=== PATIENT | female | born 1965 | race Caucasian/White ===

== ENCOUNTER 2018-01-21 11:54 | Day surgery (SDC) | payer OTHER, SELFPAY ==
--- NOTE | 2018-01-18 11:03 | EKG12_ITS ---
Test Reason : PRE OP Blood Pressure : / mmHG Vent. Rate : 090 BPM Atrial Rate : 090 BPM P-R Int : 124 ms QRS Dur : 072 ms QT Int : 348 ms P-R-T Axes : 019 047 051 degrees QTc Int : 425 ms Normal sinus rhythm Normal ECG Confirmed by ANTHONY CAN, SENTHIL ([id number]), technical writer and editor SHERRY BECK ([id number]) on 01/21/2018 1:01:42 PM Referred By: Nicole Vega Confirmed By:SENTHIL CRUZ MD
[2018-01-21] VITALS (14 sets, daily range): BP systolic 95–142; BP diastolic 48–109; PULSE 58–112; RESP 16–20; TEMP 36.4–36.9; O2SAT 91–100; BMI 27.4; BMI 28.6
--- NOTE | 2018-01-21 06:40 | HP.PCM_ITS ---
- Problem List (1) Cystocele Status: Acute (2) Rectocele Status: Acute (3) Uterine prolapse Status: Acute History and Physical Date of Admission: 01/21/18 Intake Vital Signs 01/11/18 Height 5 ft 3 in 01/11/18 Weight: 155 lb 6 oz 01/11/18 Body Mass Index (BMI) 27.5 01/11/18 Blood Pressure 122/77 Intake Visit Reasons: Pre Op appointment Fitting Room Attendant Required: No Is patient in pain?: No Allergies No Known Allergies Allergy (Verified 01/11/18 11:53) Medications atorvastatin 20 mg tablet 20 mg PO QDAY 01/11/18 [History Confirmed 01/11/18] fluoxetine 40 mg capsule 40 mg PO QDAY 01/11/18 [History Confirmed 01/11/18] gabapentin 300 mg capsule 300 mg PO BID cap 01/11/18 [History Confirmed ] levothyroxine 100 mcg capsule PO 01/11/18 [History Confirmed 01/11/18] levothyroxine 75 mcg tablet PO 01/11/18 [History Confirmed 01/11/18] oxybutynin chloride ER 5 mg tablet,extended release 24 hr 5 mg PO QDAY 01/11/18 [History Confirmed 01/11/18] Is last menstrual period known: No Post menopausal: Yes Patient : No : No PFSH Medical History GERD (gastroesophageal reflux disease) (Acute) Sinus headache (Acute) Hyperlipidemia (Chronic) Hypothyroidism (Chronic) Neuropathy (Chronic) Family History Mother Hypertension Heart disease Father CVA (cerebral vascular accident) Social History Smoking Status: Never smoker alcohol intake: never substance use type: does not use caffeine: No what type of physical activity do you participate in: walking frequency: 1-2 times per week seatbelt use: always do you feel safe at home: Yes additional social history: - [employer] 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 HPI Pre Op appointment: Details: DONNY LAWTON is a 52 year old who presents for PREOP APPOINTMENT. She was seen by Dr Nicole Vega and is planning a hysterectomy. Her urge incontinence symptoms are controlled with meds and is having pelvic support surgery also done at the same time. Female Reproductive History Questions: Metorrhagia: No, Sexually active: Yes, Dyspareunia: No Pregancy History 3 Elective abortions Hx Para 3 Spontaneous abortions Hx # Term Pregnancies Ectopic pregnancies Hx # Pregnancies Multiple births # of living children Past Pregnancies Del. Date Name GA/Weeks Outcome Route Bth Weight [facility] F[facility] Unknown Sue-1995 Unknown Clinton Farley-1997 Unknown Ricardo-1999 ROS Const Constitutional: Denies poor appetite, headache(s), fever(s), increased appetite , weight gain, weight loss or fatigue Cardio Card: Denies chest pain Resp Resp: Denies dyspnea or cough GI GI: Reports as per HPI; denies vomiting, nausea, abdominal pain or constipation : Denies nipple discharge Skin Skin/Breast: Denies breast lump, breast pain, breast skin changes, nipple discharge or change in hair all other systems reviewed and negative Exam Const General: cooperative, healthy appearing, comfortable, no acute distress, well developed Nutritional Appearance: average body habitus Orientation: alert HENMT Head: normal to inspection, normocephalic Neck Neck: normal visual inspection, trachea midline Thyroid: thyroid normal Resp RRR Effort & Inspection: normal respiratory effort GI Inspection: normal to inspection, non-distended Palpation: soft, no hepatosplenomegaly Skin General: no rashes or lesions noted Assessment & Plan Problems 1. Cystocele and rectocele with incomplete uterovaginal prolapse N81.2 Plan discussed surgical risks including risks of anesthesia, infection, bleeding, injury to bowel, bladder or blood vessels, and patient wishes to proceed with surgery. Coding Level of Care Code No Charge Diagnoses Cystocele and rectocele with incomplete uterovaginal prolapse N81.2 I have seen the patient and update the h and p with any relevant changes. Sharlene Hill 01/21/18
[2018-01-21] MEDS: Phenazopyridine 95 MG Tablet 190 MG PO (13:58)
--- NOTE | 2018-01-21 14:05 | HYST_PTH ---
PATIENT: DONNY LAWTON [place] [facility] [id number] AGE/SX: 52/F ROOM: RE01/21/[address]: Dr. Nicole Vega MD : [id number] BED: DIS: 01/23/2018 SPEC #: [id number] RECD: 01/24/18 09:06 STATUS: NILS CARI #: [id number] LEAH: 01/21/18 14:[address]: Sharlene Hill DEPT: SURGICAL PATHOLOGY RECD BY: Johnny Barrett ENTERED: 01/24/18 09:06 SP TYPE: HYSTERECT OTHR DR: MD Dr. Nicole Whitfield MD Dr. Sharon Marcanthony, MD Tissues: Uterus, NOS Procedures: Surgery Specimen Level V Comments: @ Ordering doctor for SUV edited from to @ by JR at 01/24/18 09 @ Submitting doctor edited from to @ by JR at 01/24/18 0958 HEADER OPERATION: Hysterectomy, vaginal, salpingectomy PRE-OP DIAGNOSIS: Cystocele rectocele with incomplete uterovaginal prolapse TISSUE SUBMITTED: Cervix, uterus, bilateral tubes MICROSCOPIC DIAGNOSIS Uterus, hysterectomy: Cervix ? nabothian cysts and mild chronic inflammation. Endometrium ? weakly proliferative endometrium with cystic change and focal tubal metaplasia. Myometrium ? adenomyosis. Right and left fallopian tubes ? no significant pathologic change. AM:antonietta 01/25/18 MICROSCOPIC DESCRIPTION Slides are reviewed. GROSS DESCRIPTION Received in fixative is one container labeled with the patient's name and designated cervix, uterus, bilateral tubes. The specimen consists of a hysterectomy specimen consisting of uterus with cervix and detached bilateral fallopian tubes. The uterus with cervix weighs 40 gm and measures 8 x 5 x 3.5 cm. The serosal surface is kaye, glistening. The ectocervical mucosa is unremarkable. The external os is slit-like in contour. The endocervical canal measures 3 cm in length and the endocervical mucosa is unremarkable. The triangular endometrial cavity measures 3.5 cm in length and 1.5 cm in width. The endometrium is congested without any mass lesion and measures <0.1 cm in thickness. Sections of the uterine wall do no reveal mass lesion and it measures 1.5 cm in thickness. The fallopian tubes are not identified as right or left. One of the fallopian tubes measures 5 cm in length and 0.5 cm in diameter. The fimbrial end is not identified. The second fallopian tube is also similar to first one and measures 5 cm in length and 0.5 cm in diameter. The fimbrial end is not identified. Sections reveal unremarkable cut surfaces. Environmental Health Aide sections are submitted in eight cassettes as follows: 1 - anterior cervix, 2 - posterior cervix, 3 & 4 - anterior uterine wall, 5 & 6 - posterior uterine wall, 7 & 8 ? each cassette containing one fallopian tubes. The fallopian tubes will be sectioned at the time of embedding. / TIMA:antonietta 01/24/18 TC:5 CPT: 03524
[2018-01-21] MEDS: Cefazolin 2 GM in 0.9% Normal Saline 100 ML IV (14:27)
[2018-01-21] MEDS: Vasopressin 20 UNITS/ML Vial (14:40)
[2018-01-21] MEDS: 0.9% NaCl Peripheral Flush Adult/Peds IV (15:24)
[2018-01-21] MEDS: Bupiv/Epi 0.5% Mpf 30 ML Vial (15:26)
[2018-01-21] MEDS: Dextrose 50%-Water 25 GM/50 ML DISP.SYRIN IV (15:27)
--- NOTE | 2018-01-21 16:23 | PCM.OPRPT ---
Problem List (1) Cystocele Status: Acute (2) Rectocele Status: Acute (3) Uterine prolapse Status: Acute Report of Operation Date of Procedure: 01/21/18 Pre-Operative Diagnosis: Uterovaginal prolapse Post-Operative Diagnosis: same Surgery/Procedure Performed:: Total vaginal hysterectomy and bilateral salpingectomy (George Wang); Anterior and posterior colporrhaphy, uterosacral ligament suspension and cystoscopy Description of Surgical Findings:: After Dr. George Wang completed the hysterectomy and bilateral salpingectomy, we intiated the USLS. With two Breisky Navratil retractors placed anteriorly and posteriorly in the vagina, the bowel was packed out of the cul-de-sac using a moist Kerlex sponge. A 0-Maxon with an HGU-46 needle on a long needle driver messenger was passed through the uterosacral ligament on the patients right side. This was followed by a 2-0 prolene suture using an SH needle. This was repeated on the contralateral side. The instruments and packing were removed from the vagina. Cystoscopy was then performed while holding tension on the uterosacral ligament suspensions sutures. Bilateral efflux of urine was seen from ureteral orifices. The vaginal epithelium overlying the anterior vaginal wall was grasped with two Allis clamps, injected with 0.25% Marcaine with epinephrine and a midline incision was made over the herniation of the anterior vaginal wall. The underlying pubocervical fascia was dissected off the overlying vaginal epithelium until the herniation of the pubocervical fascia was completely exposed. Hemostasis was achieved with electrosurgical cautery. The herniation was repaired in the traditional fashion using imbricating horizontal mattress sutures of 2-O PDS on a CT-1 needle. Once the hernation was completely repaired, the redundant vaginal epithelium was excised and the incision was closed with a running, locking 3-O vicryl suture. Excellent hemostasis was noted. The sutures were then bought through the corners of the vaginal cuff. The cuff was closed with interrupted 0-vicryl sutures. The uterosacral ligament sutures were then tied, elevating the vaginal vault. A self-retaining retractor was used to retract the labia and vagina for adequate visualization and exposure. The vaginal epithelium overlying the posterior vaginal wall was grasped with two Allis clamps, injected with 0.25% Marcaine with epinephrine and a midline incision was made over the herniation of the posterior vaginal wall. The underlying rectovaginal fascia was dissected off the overlying vaginal epithelium until the herniation of the rectovaginal fascia was completely exposed. Hemostasis was achieved with electrosurgical cautery. With placement of a rectal finger, the herniation was repaired in the traditional fashion using imbricating horizontal mattress sutures of 2-O PDS on a CT-1 needle. Once the hernation was completely repaired, the redundant vaginal epithelium was excised and the incision was closed with a running, locking 3-O vicryl suture. Excellent hemostasis was noted. The vagina was packed with Kerlex gauze soaked in estrogen cream. Anesthesia was discontinued. All needle, instrument, and sponge counts were correct x 2. The patient was taken to recovery room in stable condition draining clear urine from her viveros catheter. hourly shift: Sharlene Hill Type of Anesthesia:: General
--- NOTE | 2018-01-21 16:28 | OP.PCM_ITS ---
Problem List (1) Cystocele Status: Acute (2) Rectocele Status: Acute (3) Uterine prolapse Status: Acute Report of Operation Date of Procedure: 01/21/18 Pre-Operative Diagnosis: Uterovaginal prolapse Post-Operative Diagnosis: same Surgery/Procedure Performed:: Total vaginal hysterectomy and bilateral salpingectomy (George Wang); Anterior and posterior colporrhaphy, uterosacral ligament suspension and cystoscopy Description of Surgical Findings:: After Dr. George Wang completed the hysterectomy and bilateral salpingectomy, we intiated the USLS. With two Breisky Navratil retractors placed anteriorly and posteriorly in the vagina, the bowel was packed out of the cul-de-sac using a moist Kerlex sponge. A 0-Maxon with an HGU-46 needle on a long needle refrigerated national truck driver was passed through the uterosacral ligament on the patients right side. This was followed by a 2-0 prolene suture using an SH needle. This was repeated on the contralateral side. The instruments and packing were removed from the vagina. Cystoscopy was then performed while holding tension on the uterosacral ligament suspensions sutures. Bilateral efflux of urine was seen from ureteral orifices. The vaginal epithelium overlying the anterior vaginal wall was grasped with two Allis clamps, injected with 0.25% Marcaine with epinephrine and a midline incision was made over the herniation of the anterior vaginal wall. The underlying pubocervical fascia was dissected off the overlying vaginal epithelium until the herniation of the pubocervical fascia was completely exposed. Hemostasis was achieved with electrosurgical cautery. The herniation was repaired in the traditional fashion using imbricating horizontal mattress sutures of 2-O PDS on a CT-1 needle. Once the hernation was completely repaired , the redundant vaginal epithelium was excised and the incision was closed with a running, locking 3-O vicryl suture. Excellent hemostasis was noted. The sutures were then bought through the corners of the vaginal cuff. The cuff was closed with interrupted 0-vicryl sutures. The uterosacral ligament sutures were then tied, elevating the vaginal vault. A self-retaining retractor was used to retract the labia and vagina for adequate visualization and exposure. The vaginal epithelium overlying the posterior vaginal wall was grasped with two Allis clamps, injected with 0.25% Marcaine with epinephrine and a midline incision was made over the herniation of the posterior vaginal wall. The underlying rectovaginal fascia was dissected off the overlying vaginal epithelium until the herniation of the rectovaginal fascia was completely exposed. Hemostasis was achieved with electrosurgical cautery. With placement of a rectal finger, the herniation was repaired in the traditional fashion using imbricating horizontal mattress sutures of 2-O PDS on a CT-1 needle. Once the hernation was completely repaired , the redundant vaginal epithelium was excised and the incision was closed with a running, locking 3-O vicryl suture. Excellent hemostasis was noted. The vagina was packed with Kerlex gauze soaked in estrogen cream. Anesthesia was discontinued. All needle, instrument, and sponge counts were correct x 2. The patient was taken to recovery room in stable condition draining clear urine from her viveros catheter. forestry consultant: Sharlene Hill Type of Anesthesia:: General
[2018-01-21] MEDS: Ketorolac 30 MG/ML Syringe IV ×2 (17:05→22:00)
[2018-01-21] MEDS: Lactated Ringers 1,000 ML 125 ML IV ×2 (18:50→23:21)
[2018-01-21] MEDS: Tolterodine Tartrate 2 MG CAP.SA PO (18:52)
[2018-01-21] MEDS: FLUoxetine 20 MG Capsule 40 MG PO (18:52)
[2018-01-21] MEDS: oxyCODONE 5 MG Tablet PO (20:52)
[2018-01-21] MEDS: Atorvastatin Calcium 20 MG Tablet PO (21:56)
[2018-01-21] MEDS: Acetaminophen 500 MG Tablet 1000 MG PO (22:00)
[2018-01-21] MEDS: Gabapentin 300 MG Capsule PO (22:00)
[2018-01-21] MEDS: HYDROmorphone 1 MG/ML Syringe IV (23:05)
[2018-01-22] VITALS (9 sets, daily range): BP systolic 98–138; BP diastolic 50–86; PULSE 91–118; RESP 16–18; TEMP 36.6–37.1; O2SAT 91–97
[2018-01-22] MEDS: oxyCODONE 5 MG Tablet PO (01:24)
[2018-01-22] MEDS: 0.9% NaCl Peripheral Flush Adult/Peds IV ×2 (04:39→06:03)
[2018-01-22] MEDS: Ketorolac 30 MG/ML Syringe IV (04:40)
[2018-01-22] MEDS: Levothyroxine 75 MCG Tablet PO (06:03)
[2018-01-22] MEDS: Acetaminophen 500 MG Tablet 1000 MG PO ×3 (06:05→21:39)
--- NOTE | 2018-01-22 06:08 | PCM.OPRPT ---
Problem List (1) Cystocele Status: Acute (2) Rectocele Status: Acute (3) Uterine prolapse Status: Acute Report of Operation Date of Procedure: 01/21/18 Pre-Operative Diagnosis: Uterovaginal prolapse Post-Operative Diagnosis: same Surgery/Procedure Performed:: Total vaginal hysterectomy and bilateral salpingectomy (George Wang); Anterior and posterior colporrhaphy, uterosacral ligament suspension and cystoscopy route sales representative: Sharlene Hill route sales representative: Nicole Vega Type of Anesthesia:: General Specimen's removed: uterue tubes Drains: viveros Estimated Blood Loss (mL): 50 Fluids Replaced: crystalloid Description of Procedure: Patient was taken to the operating room and was placed under general anesthesia was prepped and draped in normal sterile fashion in the dorsal lithotomy position. Preoperative antibiotics and SCDs and Viveros catheter was placed inside the bladder. Weighted speculum was placed in the vagina and the anterior and posterior lip of the cervix was grasped with 2 Sharan clamps and circumferentially injected with dilute vasopressin. A circumferential incision was made with a scalpel and the posterior cul-de-sac was entered into sharply and a longneck speculum was placed. The anterior cul-de-sac was also dissected down and entered into sharply and the uterosacral ligaments were clamped cut and suture ligated bilaterally followed by the cardinal ligaments which were Clamped cut and suture ligated bilaterally with 0 Monocryl. The uterus serially descended and progressive bites were taken bilaterally up to the level of the utero-ovarian ligament bilaterally which was clamped transected and ligated with 0 Monocryl suture. Bilateral fallopian tubes and ovaries were well visualized and noted be within normal limits and the bilateral fallopian tubes were transected across the base using the bovie. dr vega then began her portion of the procedure. Grafts/Implants Used: none - Complications none
--- NOTE | 2018-01-22 06:11 | OP.PCM_ITS ---
Problem List (1) Cystocele Status: Acute (2) Rectocele Status: Acute (3) Uterine prolapse Status: Acute Report of Operation Date of Procedure: 01/21/18 Pre-Operative Diagnosis: Uterovaginal prolapse Post-Operative Diagnosis: same Surgery/Procedure Performed:: Total vaginal hysterectomy and bilateral salpingectomy (George Wang); Anterior and posterior colporrhaphy, uterosacral ligament suspension and cystoscopy inspector printed circuit boards: Sharlene Hill inspector printed circuit boards: Nicole Vega Type of Anesthesia:: General Specimen's removed: uterue tubes Drains: viveros Estimated Blood Loss (mL): 50 Fluids Replaced: crystalloid Description of Procedure: Patient was taken to the operating room and was placed under general anesthesia was prepped and draped in normal sterile fashion in the dorsal lithotomy position. Preoperative antibiotics and SCDs and Viveros catheter was placed inside the bladder. Weighted speculum was placed in the vagina and the anterior and posterior lip of the cervix was grasped with 2 Sharan clamps and circumferentially injected with dilute vasopressin. A circumferential incision was made with a scalpel and the posterior cul-de-sac was entered into sharply and a longneck speculum was placed. The anterior cul-de-sac was also dissected down and entered into sharply and the uterosacral ligaments were clamped cut and suture ligated bilaterally followed by the cardinal ligaments which were Clamped cut and suture ligated bilaterally with 0 Monocryl. The uterus serially descended and progressive bites were taken bilaterally up to the level of the utero-ovarian ligament bilaterally which was clamped transected and ligated with 0 Monocryl suture. Bilateral fallopian tubes and ovaries were well visualized and noted be within normal limits and the bilateral fallopian tubes were transected across the base using the bovie. dr vega then began her portion of the procedure. Grafts/Implants Used: none - Complications none
--- NOTE | 2018-01-22 06:11 | PCM.PN.OB ---
Subjective: pain controlled no CP SOB N V. increasing heart rate overnight, other vital signs stable. pad has been changed twice with minimal to moderate bleeding noted. - Physical Exam General: Alert, Oriented x3 Lungs: Clear to auscultation, Normal air movement, No wheeze Cardiovascular: Normal S1, Normal S2, No murmurs, Tachycardic Abdomen: Soft, Non Tender Extremities: No edema Comment: vagianl exam minimal blood present Vital Signs Temp Pulse Resp BP Pulse Ox 98.8 F 110 H 16 110/50 L 94 01/22/18 05:58 01/22/18 05:58 01/22/18 05:58 01/22/18 05:58 01/22/18 05:58 Oxygen Flow Rate (L/min) 1 Oxygen Delivery Method Room Air Weight: 161 lb 9.581 oz Body Mass Index (BMI) 28.6 Intake and Output for Last 24 Hours 01/20/18 01/21/18 01/22/18 23:59 23:59 23:59 Intake Total 4500 / 4500 Output Total 1110 / 1110 Balance 3390 / 3390 Medical Necessity - Tobacco Use Smoking Status: Never smoker Assessment/Plan s/p TVH BS A P Repair uterosacral ligament fixation. POD 1 1. tachycardia- appears clincally stable, give IVF bolus and check stat CBC. afebrile. 2. ambulate, lakesha garcia diet, oral pain control.
[2018-01-22] MEDS: Lactated Ringers 1,000 ML 999 ML IV (06:13)
--- NOTE | 2018-01-22 06:18 | PCM.DC.VHY ---
Discharge Diet: No Restrictions Discharge Activity: Return to Normal Activity, May Not Drive, May Shower May resume sexual activity in: 6-8 weeks Call your doctor if your incision/area has: Continuous Slow Oozing, Sudden Increased Bleeding, Increased Pain/ Swelling, Increased Redness, Foul Smelling Discharge Call your doctor if you observe: Fever of 101 or Higher, Inability to urinate, Inability to have a bowel movement, Using more than one pad per hour Allergies/Adverse Reactions: Allergies No Known Allergies Allergy (Verified 01/14/18 10:42) Medications to take at Discharge atorvastatin 20 mg tablet 20 mg PO QDAY 01/11/18 fluoxetine 40 mg capsule 40 mg PO QDAY 01/11/18 gabapentin 300 mg capsule 300 mg PO BID cap 01/11/18 levothyroxine 100 mcg capsule 100 mcg PO MOWEFR 01/11/18 levothyroxine 75 mcg tablet 75 mcg PO SUTUTHSA 01/11/18 oxybutynin chloride ER 5 mg tablet,extended release 24 hr 5 mg PO QDAY 01/11/18 Naproxen [Naprosyn] 250 - 500 mg PO Q8H PRN PRN #30 tab 01/22/18 Oxycodone HCl/Acetaminophen [Percocet 5-325] 2 tablet PO Q4H PRN PRN 7 Days #28 tablet 01/22/18 The following prescriptions were given: Oxycodone HCl/Acetaminophen [Percocet 5-325] 2 tablet PO Q4H PRN PRN 7 Days #28 tablet PRN Reason: Moderate-Severe pain Naproxen [Naprosyn] 250 - 500 mg PO Q8H PRN PRN #30 tab PRN Reason: MILD PAIN Primary Care Physician: Yoly Snowden MD [Primary Care Provider] - Please Follow Up With: Sharlene Hill MD - [phone] When: 2 weeks
[2018-01-22 06:39] LABS: Hematocrit 34.9 % (37-47); Mean Corp Hgb Conc 34.4 g/gl (32-36); Mean Corpuscular Volume 90.2 fL (81-99); Mean Platelet Vol. 9.2 fl (6.2-12.0); Platelet Count 172 K/mm3 (150-450); RBC Distribution Width CV 12.3 % (11.6-14.6); RBC Distribution Width SD 39.9 fl (35.1-43.9); Red Blood Count 3.87 M/mm3 (4.2-5.4); White Blood Count 7.6 K/mm3 (4.4-11.0)
[2018-01-22 06:40] LABS: Scan Indicated on CBC? Y/N NO
[2018-01-22] MEDS: Tolterodine Tartrate 2 MG CAP.SA PO (09:21)
[2018-01-22] MEDS: Gabapentin 300 MG Capsule PO ×2 (09:21→21:39)
[2018-01-22] MEDS: FLUoxetine 20 MG Capsule 40 MG PO (09:21)
[2018-01-22] MEDS: Ketorolac 10 MG Tablet PO ×3 (10:58→23:58)
--- NOTE | 2018-01-22 11:04 | PCA ---
rn in with pt
--- NOTE | 2018-01-22 14:53 | PCA ---
pt out walking in the [place] with
--- NOTE | 2018-01-22 19:41 | NURSING ---
This nurse called and spoke with Dr. Yunior Vega and made her aware that viveros was pulled around 10 to 11 this am and despite bladder scanning all day, pt has not voided until now at shift change and voided 75ml. Dr. Liu recently called and informed of this minus the voiding 75ml and orders for Serum Creatinine, re-insert viveros and call and update Dr. Vega. After calling and updating Dr. Vega, she gave orders at this time to re-insert viveros and call her back as soon as it is inserted with how much comes out. Therese bowling alley floors installer RN is aware of all the above and will re-insert viveros and call Dr. Yunior Vega back with results.
[2018-01-22 20:12] LABS: Creatinine, Serum 0.65 mg/dL (0.55-1.02); EST Glomerular Filtration Rate 101 mL/min (>60); Est Glom Filt Rate - Afr Amer 123 mL/min (>60); Estimated Creatinine Clearance 79.16 ml/min
[2018-01-22] MEDS: Atorvastatin Calcium 20 MG Tablet PO (21:39)
[2018-01-23 02:26] VITALS: BP 137/83; PULSE 102; RESP 18; TEMP 37.1; O2SAT 96
[2018-01-23] MEDS: Ketorolac 10 MG Tablet PO ×2 (05:34→11:03)
[2018-01-23] MEDS: Levothyroxine 75 MCG Tablet PO (05:35)
[2018-01-23] MEDS: Acetaminophen 500 MG Tablet 1000 MG PO (05:35)
[2018-01-23 07:48] VITALS: O2SAT 96
[2018-01-23 08:26] VITALS: BP 130/77; PULSE 116; RESP 18; TEMP 36.4; O2SAT 99
[2018-01-23] MEDS: Gabapentin 300 MG Capsule PO (08:34)
[2018-01-23] MEDS: Tolterodine Tartrate 2 MG CAP.SA PO (08:34)
[2018-01-23] MEDS: FLUoxetine 20 MG Capsule 40 MG PO (08:34)
--- NOTE | 2018-01-23 09:33 | PCA ---
pt out walking in the [place]
== END 2018-01-23 11:39 | disposition home or self-care (01) ==
LOC: SDC 11:54 → AC 11:55 → MS2 17:21
PROVIDERS: Obstetrics & Gynecology; Family Provider Internal Medicine; PCP Internal Medicine; Visit Provider Obstetrics & Gynecology
PROC: (CPT 58260; principal; 2018-01-21 13:45)
PROC: (CPT 57260; 2018-01-21 13:45)
DX: N81.2 Incomplete uterovaginal prolapse (principal); N88.8 Other specified noninflammatory disorders of cervix uteri; N80.0 Endometriosis of uterus; F32.9 Major depressive disorder, single episode, unspecified; Z79.899 Other long term (current) drug therapy; E78.5 Hyperlipidemia, unspecified; K21.9 Gastro-esophageal reflux disease without esophagitis; E03.9 Hypothyroidism, unspecified; G62.9 Polyneuropathy, unspecified; N39.41 Urge incontinence; E78.00 Pure hypercholesterolemia, unspecified
CPT/HCPCS: 00940; 57260; 58262; 36415; 82565; 84443; 85027; 88307; 93005; J7120; A4216; J1940; J2405

== ENCOUNTER → 2018-07-14 10:36 | Outpatient (CLI) | payer OTHER, SELFPAY ==
--- NOTE | 2018-07-14 10:45 | BD_ITS ---
STUDY: DUAL ENERGY X-RAY ABSORPTIOMETRY / DXA REASON FOR EXAM: Female, 52 years old. The patient is postmenopausal. No loss of height. TECHNIQUE: Bone Mineral Density (BMD) measurements of lumbar spine and bilateral hips were obtained. COMPARISON: None. FINDINGS: Lumbar Spine (L1-L4): g/cm2 (1.043) / T-score (-1.1) / Z-score (-0.4) Findings are suggestive of osteopenia with a low fracture risk. Left Femur Total: g/cm2 (0.817) / T-score (-1.5) / Z-score (-0.9) Left Femoral Neck: g/cm2 (0.828) / T-score (-1.5) / Z-score (-0.6) Right Femur Total: g/cm2 (0.850) / T-score (-1.3) / Z-score (-0.7) Right Femoral Neck: g/cm2 (0.873) / T-score (-1.2) / Z-score (-0.2) BD/Dexa Bone Density Study IMPRESSION: The patient is considered osteopenic as outlined below according to World Sadi Organization (WHO) criteria with a moderate fracture risk. Reference Information: The T-score is the number of standard deviations above or below the standard which is normal for young adults at their peak bone mineral density. The World Health Organization (WHO) interprets the T-scores as follows: Above -1 Normal bone density Between -1 and -2.5 Osteopenia Equal to / or below -2.5 Osteoporosis As a practical clinical guideline, osteopenia may be graded as follows: Mild -1 through -1.5 Moderate -1.6 through -2.0 Severe -2.1 through -2.4 The Z-score is the number of standard deviations above or below age-matched controls. A Z-score of less than -1.5 would be considered abnormal. References: 1. NIH Osteoporosis and Related Bone Diseases http://www.osteo.org 2. International Society for Clinical Densitometry http://www.iscd.org 3. National Osteoporosis Foundation http://www.nof.org Electronically Signed: Chris Puri MD at 13:22 EDT Tel [phone], Service support ,
== END ==
PROVIDERS: Family Provider Internal Medicine; PCP Internal Medicine; Visit Provider Internal Medicine
DX: Z78.0 Asymptomatic menopausal state (principal)
CPT/HCPCS: 77080

== ENCOUNTER → 2018-07-21 14:48 | Outpatient (CLI) | payer OTHER, SELFPAY ==
--- NOTE | 2018-07-21 14:50 | RAD_ITS ---
STUDY: X-RAY - LUMBOSACRAL SPINE REASON FOR EXAM: Female, 52 years old. Radiating low back pain TECHNIQUE: 7 view(s) of the lumbosacral spine were obtained. COMPARISON: None FINDINGS: Normal lumbar lordosis. There is no substantial scoliosis. There is normal alignment of the vertebrae. There is multilevel endplate spondylosis of the lumbar vertebrae. There is multi-level degenerative disc disease with multi-level disc space narrowing. Normal bilateral sacral ala, sacroiliac joints, and visualized sacrum. No evidence of instability on the flexion or extension views Normal visualized soft tissue structures. RAD/L/S Spine Comp/w Bending Views IMPRESSION: Degenerative changes of the spine, as detailed above. Electronically Signed: Todd Irving MD at 15:28 EDT , Service support ,
== END ==
PROVIDERS: Family Provider Internal Medicine; PCP Internal Medicine; Referring Provider Internal Medicine; Visit Provider Internal Medicine
DX: M54.5 Low back pain (principal); M79.605 Pain in left leg
CPT/HCPCS: 72114

== ENCOUNTER → 2018-07-27 07:46 | Outpatient (CLI) | payer OTHER, SELFPAY ==
[2018-07-27 10:54] LABS: ALB/GLOB Ratio 0.9 RATIO (0.9-2.4); AST(SGOT) 15 U/L (15-37); Alanine Aminotransfer ALT/SGPT 33 U/L (13-56); Albumin, Serum 3.5 g/dL (3.2-5.0); Alkaline Phosphatase 97 U/L (45-117); Anion Gap 9 (5-15); BUN 21 mg/dL (7-18); BUN/Creat Ratio 23.9 RATIO (10-20); Calcium,Total 8.8 mg/dL (8.5-10.1); Chloride 105 mmol/L (98-107); Cholesterol 176 mg/dL (200); Creatinine, Serum 0.88 mg/dL (0.55-1.02); EST Glomerular Filtration Rate 71 mL/min (>60); Est Glom Filt Rate - Afr Amer 86 mL/min (>60); Globulin 3.8 g/dL (2.2-4.2); Glucose 80 mg/dL (74-106); High Density Lipoprotein 53 mg/dL; Potassium 3.6 mmol/L (3.5-5.1); Protein, Total 7.3 g/dL (6.4-8.2); Sodium Level 144 mmol/L (136-145); Triglycerides 109 mg/dL; Very Low Density Lipoprotein 22 mg/dL (5-40)
== END ==
PROVIDERS: Family Provider Internal Medicine; PCP Internal Medicine; Referring Provider Internal Medicine; Visit Provider Internal Medicine
DX: E78.5 Hyperlipidemia, unspecified (principal); M85.80 Other specified disorders of bone density and structure, unspecified site
CPT/HCPCS: 36415; 80053; 80061; 82306

== ENCOUNTER → 2018-10-19 16:04 | Outpatient (CLI) | payer OTHER, SELFPAY ==
[2018-08-25 13:40] VITALS: BMI 27.6
--- NOTE | 2018-10-19 16:19 | BI_ITS ---
MAMMOGRAPHY - BILATERAL SCREENING REASON FOR EXAM: Female, 53 years old. Routine annual screening examination. PERTINENT HISTORY: Non-contributory. TECHNIQUE: Digital bilateral breast jaqueline (3D mammographic acquisition) in the CC and MLO projections. 2-D mediolateral oblique (MLO) and craniocaudad (CC) views of both breasts were obtained. CAD: Full Field Digital Mammography with Computer Added Detection was performed. COMPARISON: Comparison is made with prior study dated September 27, 2017. FINDINGS: Breast Composition: There are scattered areas of fibroglandular density. There are no dominant masses or suspicious calcifications. Stable 4 mm nodule in the inferior retroareolar region of the right breast. Prior sonogram demonstrating this to be a cyst. No other significant abnormalities are identified. There has been no significant change since the prior study. BI/SCREENING MAMM (CAD), BILAT IMPRESSION: Stable bilateral screening mammogram. Yearly follow-up mammogram recommended. (A) ASSESSMENT CATEGORY: BIRADS Category 2: Benign. A letter regarding these results will be sent to the patient by the facility within 30 days. Approximately 10% of breast cancers are not detected by mammography. A normal mammogram should not delay biopsy of a clinically suspicious abnormality. [id number] Electronically Signed: Chris Puri MD at 9:35 EST Tel [phone], Service support ,
== END ==
PROVIDERS: Family Provider Internal Medicine; PCP Internal Medicine; Referring Provider Obstetrics & Gynecology; Visit Provider Obstetrics & Gynecology
DX: Z12.31 Encounter for screening mammogram for malignant neoplasm of breast (principal)
CPT/HCPCS: 77063; 77067

== ENCOUNTER 2018-10-20 16:00 | Outpatient (RCR) | payer OTHER, SELFPAY ==
--- NOTE | 2018-08-01 13:54 | HP.PTEVAL ---
Patient's Visit Information DONNY LAWTON is a 52 year old F referred to Physical Therapy by Yoly Snowden MD with a diagnosis of LBP with radiulopathy. Date of Evaluation: 08/01/18 Physical Therapist: HOLLY BlancoT, OC - Visit Plan Frequency: 2-3x /Week Duration: 4-6 Weeks Plan: 2-3x/week for 4-6 weeks for. 1. DTM to L piriformis and glut. 2. US to same thermal and aggressive glut/piriformis/ HS stretch. 3. piriformis and glut muscle pumping exercises and LB/hip ROM to HEP. Avoid aggravating activities. - Subjective Subjective: Has LBP/pinched nerve. Pain is L LB and down posterior leg to the knee. Constant in LB above SI joint for a couple months insidiously. Has had toruble long ago on R side but not like this in the left. Sitting in certain chair will make it worse and down leg. Worse in am after lying down long time. Rolling at night can be painful and wake her up. Getting in and out of bed hurts. Not employed. Takes care of house and pets and laundry. Avoids it in excess right now. Basic ADLs are OK just slow. Vaccuum is worse carrying the vaccuum up steps. Exercises: no - Pain R LBP Pain Intensity (Out of 10): 3 Pain Intensity Range: 3, 8 - Objective Walks without antalgia, transfers I but rolling and scooting on table causes L LBP in buttock. AROM L/S ext painful end range, flexion painful L buttock, SB no painful and full. PPU full and painfree even with OP, DKC painfree. reflexes 2/3 patella and achilles. sensation LE WNL to gross light touch, R UE adn LE slightly numb from college injury. strength LE 4+/5 withotu pain or myotomal abnormalities. Hip ext rotation and extension sligthly painful. - L/S compression test. Repeated ext adn flexion has no effect on symptoms today. - Goals Goal 1:: Pateint report a 75% improvement in pain to 1/10 at worst and intermittent only in L buttock. Goal Time Frame: 4-6 Weeks Goal 2:: Pt I in approp HEP to minimize future problems. Goal Time Frame: 4-6 Weeks Goal 3:: Carry vaccuum up and down steps withotu pain Goal Time Frame: 4-6 Weeks - Rehabilitation Potential Physical Therapy Diagnosis: LBP with radiculopathy. Rehabilitation Potential: Fair - Anticipated Interventions Patient/Client Instruction: Educate patient on: Condition, Plan of Care For the Purpose of:: To decrease pain, To increase tolerance to activity/condition/position Therapeutic Exercise to Include: Strength training, Flexibilty training, Passive ROM For the Purpose of:: To decrease pain, To improve nutrient delivery to tissue, To increase tolerance to activity/condition/position Comment: DTM to L piriformis and glut. For the Purpose of:: To decrease pain, To improve nutrient delivery to tissue Ultrasound (thermal/non thermal): Yes - thermal, L piri For the Purpose of:: To improve nutrient delivery to tissue Thank you for the opportunity to evaluate your patient. For Medicare and Medicare HMO plans, please review the plan of care and approve it. It will need to be FAXED BACK to us at [phone] for Medicare purposes. Please let me know if there are questions or concerns regarding this plan of care. Physician Signature: Date:
--- NOTE | 2018-08-31 13:29 | HP.PTREVAL ---
Yoly Snowden MD, It has been my pleasure to treat DONNY LAWTON over the last 12 visits for LBP with radiulopathy. Please see the progress note below for an update on the physical therapy plan of care! Subjective: Was getting better but worse since Wednesday incident. 01/25 since Wednesday worse in morning. HEP daily are helping especially the stretches. Saw doc last week adn increased to two ibuprofens a day. Objective/Function: Good ROM in L/S without increased pain except with HS on stretch on L side, then is very painful and limited.. Walking well and trasnfers well. Plan Plan: 2x/week for 2-4 weeks to continue Deep tissue release to L piriformis area, aggressive HS stretch and NRS L. US thermal and foam roll. Goals Goal 1:: Pateint report a 75% improvement in pain to 1/10 at worst and intermittent only in L buttock. Goal Time Frame: 4-6 Weeks Goal Progress: Progressing Goal 2:: Pt I in approp HEP to minimize future problems. Goal Time Frame: 4-6 Weeks Goal Progress: Progressing Goal 3:: Carry vaccuum up and down steps withotu pain Goal Time Frame: 4-6 Weeks Goal Progress: Not Progressing Goal 4:: Pt feel 80% improved In L LE pain to 1/10 at worst and have full L/S flexion without hesitation Goal Time Frame: 2-4 Weeks Goal Progress: NEW GOAL Anticipated Interventions Patient/Client Instruction: Educate patient on: Condition, Plan of Care For the Purpose of:: To decrease pain, To increase tolerance to activity/condition/position Therapeutic Exercise to Include: Strength training, Flexibilty training, Passive ROM For the Purpose of:: To decrease pain, To improve nutrient delivery to tissue, To increase tolerance to activity/condition/position Comment: DTM to L piriformis and glut. For the Purpose of:: To decrease pain, To improve nutrient delivery to tissue Ultrasound (thermal/non thermal): Yes - thermal, L piri For the Purpose of:: To improve nutrient delivery to tissue Please do not hesitate to contact me at [phone] by phone or if you have questions or concerns regarding this new plan of care! Sincerely, Prem Stein, DPT, OC
--- NOTE | 2018-09-19 13:21 | HP.PTREVAL ---
Yoly Snowden MD, It has been my pleasure to treat DONNY LAWTON over the last 16 visits for LBP with radiulopathy. Please see the progress note below for an update on the physical therapy plan of care! Subjective: Going a whole lot better. Still feels tight. L piriformis still ouchy at times but not all the time. Walking is not bad. Pain over the weekend to 5/10 L pirformis. Activities are pretty normal, it just hurts at times without pattern. Worse in am to /10. Doing stretches at home. No f/u with doctor until October. Doing stretches at home legs crossed piriformis, ANRS/HS stretch. Objective/Function: Feeling much better overall, negative slump today. still tight in piri and fascia around it thus adding rotation today. Meeting goals and doing well overall. Hurts with sex due to different hip positions. Plan Plan: f/u two weeks(pt to stretch daily for next two weeks. adn consider joing HP) as needed to progress, increase frequ and continue Manual /US or talk H &W ex if needed(pt may join) Goals Goal 1:: Pateint report a 75% improvement in pain to 1/10 at worst and intermittent only in L buttock. Goal Time Frame: 4-6 Weeks Goal Progress: Goal Met Goal 2:: Pt I in approp HEP to minimize future problems. Goal Time Frame: 4-6 Weeks Goal Progress: Goal Met Goal 3:: Carry vaccuum up and down steps withotu pain Goal Time Frame: 4-6 Weeks Goal Progress: Not Progressing Goal 4:: Pt feel 80% improved In L LE pain to 1/10 at worst and have full L/S flexion without hesitation Goal Time Frame: 2-4 Weeks Goal Progress: Goal Met Anticipated Interventions Patient/Client Instruction: Educate patient on: Condition, Plan of Care For the Purpose of:: To decrease pain, To increase tolerance to activity/condition/position Therapeutic Exercise to Include: Strength training, Flexibilty training, Passive ROM For the Purpose of:: To decrease pain, To improve nutrient delivery to tissue, To increase tolerance to activity/condition/position Comment: DTM to L piriformis and glut. For the Purpose of:: To decrease pain, To improve nutrient delivery to tissue Ultrasound (thermal/non thermal): Yes - thermal, L piri For the Purpose of:: To improve nutrient delivery to tissue Please do not hesitate to contact me at [phone] by phone or if you have questions or concerns regarding this new plan of care! Sincerely, Prem Stein, DPT, OC
--- NOTE | 2018-10-03 12:36 | HP.PTREVAL ---
Yoly Snowden MD, It has been my pleasure to treat DONNY LAWTON over the last 17 visits for LBP with radiulopathy. Please see the progress note below for an update on the physical therapy plan of care! Subjective: Busy with kids home from college. As far as back goes, some days are good and others not. Bending over to put on the dogs leash up and down without pattern. Sees doctor in October. Not sure what next step is, maybe cortisone shots. No MRI yet. Mornings are always worse. HEP: doing HS stretch, rotation stretch, SL deadlift unweighted. no rubbing on foam roller. Objective/Function: Good ROM L/S hip extensor tightness and HS limiting forward flexion but no back pain. Tender L piriformis minimally. Walks well, transfers well. Plan Plan: 2 visits to teach gym based postural , core, LE adn general CV ex in gym and give list for I after two visits as patient is to join and continue with ex. Pt to visit doctor in October and may want offered injection if improvement slows. Goals Goal 1:: Pateint report a 75% improvement in pain to 1/10 at worst and intermittent only in L buttock. Goal Time Frame: 4-6 Weeks Goal Progress: Goal Met Goal 2:: Pt I in approp HEP to minimize future problems. Goal Time Frame: 4-6 Weeks Goal Progress: Goal Met Goal 3:: Carry vaccuum up and down steps withotu pain Goal Time Frame: 4-6 Weeks Goal Progress: Goal Met Goal 4:: Pt feel 80% improved In L LE pain to 1/10 at worst and have full L/S flexion without hesitation Goal Time Frame: 2-4 Weeks Goal Progress: Goal Met Goal 5:: I approp gym based ex for maintenance of improvements adn continue improvement. Pt 95% better overall. Goal Time Frame: 2 Weeks Goal Progress: NEW GOAL Anticipated Interventions Patient/Client Instruction: Educate patient on: Condition, Plan of Care For the Purpose of:: To decrease pain, To increase tolerance to activity/condition/position Therapeutic Exercise to Include: Strength training, Flexibilty training, Passive ROM For the Purpose of:: To decrease pain, To improve nutrient delivery to tissue, To increase tolerance to activity/condition/position Comment: DTM to L piriformis and glut. For the Purpose of:: To decrease pain, To improve nutrient delivery to tissue Ultrasound (thermal/non thermal): Yes - Carrie johnsoni For the Purpose of:: To improve nutrient delivery to tissue Please do not hesitate to contact me at [phone] by phone or if you have questions or concerns regarding this new plan of care! Sincerely, Prem Stein, DPT, OCS, CSCS
--- NOTE | 2018-10-20 16:44 | HP.PTDCSUM ---
HP - PT D/C Summary It has been my pleasure to treat DONNY LAWTON under orders from Yoly Snowden MD, for the diagnosis of LBP with radiulopathy for a total of 19 visit(s). Discharge Date: 10/20/18 Please see the following information for a summary of their discharge status. - Subjective Subjective: Back is an enigma. Some days are great. Some days get a small margaret horse in L buttock. Workout in gym going OK. - Pain R LBP Pain Intensity (Out of 10): 0 LEFT HIP /LB/BUTTOCKS Pain Intensity (Out of 10): 0 - Overall Improvement % Improvement: 90 - Objective Objective/Function: Full aROM L/S without pain today. Feels comfortable and I with HEP - Goals Goal 1:: Pateint report a 75% improvement in pain to 1/10 at worst and intermittent only in L buttock. Goal Progress: Goal Met Goal 2:: Pt I in approp HEP to minimize future problems. Goal Progress: Goal Met Goal 3:: Carry vaccuum up and down steps withotu pain Goal Progress: Goal Met Goal 4:: Pt feel 80% improved In L LE pain to 1/10 at worst and have full L/S flexion without hesitation Goal Progress: Goal Met Goal 5:: I approp gym based ex for maintenance of improvements adn continue improvement. Pt 95% better overall. Goal Progress: Goal Met - Plan Plan: D/C to gym ex and ball roll on L piri and stretches via HEP. - D/C Information Discharge Comments: Pt to continue soft tissue stretching and rollout at home and gym ex 3x/week. Will contact doctor if pain worsens again. If there are questions or concerns regarding this patient's physical therapy, please feel free to call me at [phone]. Thank you for the referral of this patient. Sincerely, Prem Stein, DPT, OCS, CSCS
== END 2018-10-20 19:00 | disposition home or self-care (01) ==
LOC: PT 16:00
PROVIDERS: Family Provider Internal Medicine; PCP Internal Medicine; Referring Provider Internal Medicine; Visit Provider Internal Medicine
DX: M54.5 Low back pain (principal); M79.605 Pain in left leg
CPT/HCPCS: 97035; 97110; 97140; 97162; 97530

== ENCOUNTER → 2019-06-16 | Outpatient (CLI) | payer OTHER, SELFPAY ==
[2019-06-07 11:07] VITALS: BMI 26.2
[2019-06-16 12:39] LABS: Hematocrit 42.4 % (37-47); Hemoglobin 13.9 g/dL (12.0-15.0); Mean Corp Hgb Conc 32.8 g/dL (32-36); Mean Corpuscular Hgb 30.7 pg (27.0-32.0); Mean Corpuscular Volume 93.6 fL (81-99); Mean Platelet Vol. 10.1 fl (6.2-12.0); Platelet Count 222 K/mm3 (150-450); RBC Distribution Width CV 12.1 % (11.6-14.6); RBC Distribution Width SD 41.4 fl (35.1-43.9); Red Blood Count 4.53 M/mm3 (4.2-5.4)
[2019-06-16 13:22] LABS: AST(SGOT) 17 U/L (15-37); Alanine Aminotransfer ALT/SGPT 45 U/L (13-56); Albumin, Serum 3.5 g/dL (3.2-5.0); Alkaline Phosphatase 99 U/L (45-117); Anion Gap 5 (5-15); BUN 14 mg/dL (7-18); BUN/Creat Ratio 15.1 RATIO (10-20); Calcium,Total 8.7 mg/dL (8.5-10.1); Chloride 110 mmol/L (98-107); Cholesterol 188 mg/dL (200); Creatinine, Serum 0.93 mg/dL (0.55-1.02); EST Glomerular Filtration Rate 67 mL/min (>60); Est Glom Filt Rate - Afr Amer 81 mL/min (>60); Globulin 3.6 g/dL (2.2-4.2); Glucose 92 mg/dL (74-106); High Density Lipoprotein 59 mg/dL; Potassium 4.2 mmol/L (3.5-5.1); Protein, Total 7.1 g/dL (6.4-8.2); Sodium Level 142 mmol/L (136-145); T4 Free Direct 0.96 ng/dL (0.76-1.46); Thyroid Stim Hormone (TSH) 2.36 uIU/mL (0.358-3.74); Triglycerides 94 mg/dL; Very Low Density Lipoprotein 19 mg/dL (5-40)
== END | disposition home or self-care (01) ==
PROVIDERS: Family Provider Internal Medicine; PCP Internal Medicine; Visit Provider Nurse Practitioner Family
DX: E03.9 Hypothyroidism, unspecified (principal); E78.5 Hyperlipidemia, unspecified
CPT/HCPCS: 36415; 80053; 80061; 84439; 84443; 85027

== ENCOUNTER → 2019-11-27 10:59 | Outpatient (CLI) | payer BC, SELFPAY ==
[2019-11-27 10:35] VITALS: BMI 27.0
[2019-11-27 12:13] LABS: Absolute Lymphocyte Count 1.31 X10^3/uL (0.83-4.51); Absolute Neutrophil Count 2.9 X10^3/uL (2.0-7.7); Basophil# 0.04 X10^3/uL; Basophil% 0.8 % (0-1); Eosinophil# 0.11 X10^3/uL; Eosinophils% 2.3 % (0-5); Hematocrit 41.9 % (37-47); Lymphocyte # 1.31 X10^3/ul (4.0); Lymphocyte % 27.2 % (19-41); Mean Corp Hgb Conc 33.4 g/dL (32-36); Mean Corpuscular Hgb 30.6 pg (27.0-32.0); Mean Corpuscular Volume 91.7 fL (81-99); Mean Platelet Vol. 9.9 fl (6.2-12.0); Monocyte# 0.43 X10^3/uL; Monocyte% 8.9 % (0-10); NRBC Flagged by Analyzer 0 % (0-5); Neutrophil # 2.91 X10^3/uL (2.7-7.7); Neutrophil % 60.6 % (47-70); Platelet Count 211 K/mm3 (150-450); RBC Distribution Width CV 11.9 % (11.6-14.6); RBC Distribution Width SD 39.7 fl (35.1-43.9); Red Blood Count 4.57 M/mm3 (4.2-5.4); White Blood Count 4.8 K/mm3 (4.4-11.0)
[2019-11-27 12:49] LABS: ALB/GLOB Ratio 1.1 RATIO (0.9-2.4); AST(SGOT) 18 U/L (15-37); Alanine Aminotransfer ALT/SGPT 36 U/L (13-56); Albumin, Serum 3.7 g/dL (3.2-5.0); Alkaline Phosphatase 75 U/L (45-117); Anion Gap 5 (5-15); BUN 12 mg/dL (7-18); BUN/Creat Ratio 12.5 RATIO (10-20); Calcium,Total 8.9 mg/dL (8.5-10.1); Chloride 109 mmol/L (98-107); Cholesterol 162 mg/dL (200); Creatinine, Serum 0.96 mg/dL (0.55-1.02); EST Glomerular Filtration Rate 64 mL/min (>60); Est Glom Filt Rate - Afr Amer 78 mL/min (>60); Globulin 3.3 g/dL (2.2-4.2); Glucose 93 mg/dL (74-106); High Density Lipoprotein 56 mg/dL; Potassium 4.2 mmol/L (3.5-5.1); Sodium Level 140 mmol/L (136-145); Triglycerides 122 mg/dL; Very Low Density Lipoprotein 24 mg/dL (5-40)
== END ==
PROVIDERS: PCP Internal Medicine; Referring Provider Internal Medicine; Visit Provider Internal Medicine
DX: Z00.00 Encounter for general adult medical examination without abnormal findings (principal)
CPT/HCPCS: 36415; 80053; 80061; 85025

== ENCOUNTER → 2019-12-05 10:49 | Outpatient (CLI) | payer BC, SELFPAY ==
[2019-11-27 11:36] VITALS: BMI 26.2
--- NOTE | 2019-12-05 10:49 | BI_ITS ---
MAMMOGRAPHY - BILATERAL SCREENING REASON FOR EXAM: Female, 54 years old. Routine annual screening examination. PERTINENT HISTORY: Non-contributory. TECHNIQUE: Digital bilateral breast dixie (3D mammographic acquisition) in the CC and MLO projections. 2-D mediolateral oblique (MLO) and craniocaudad (CC) views of both breasts were obtained. CAD: Full Field Digital Mammography with Computer Added Detection was performed. COMPARISON: Comparison is made with prior study dated April 18, 2019 and September 27, 2017. FINDINGS: Breast Composition: There are scattered areas of fibroglandular density. There are no dominant masses or suspicious calcifications. Stable 4 mm well-defined nodule in the inferior retroareolar region of the right breast. This was demonstrated to be a small cyst on prior sonogram. No other significant abnormalities are identified. There has been no significant change since the prior study. BI/SCREEN MAMM (CAD) W/DIXIE BILAT IMPRESSION: Stable bilateral screening mammogram. Yearly follow-up mammogram recommended. (A) ASSESSMENT CATEGORY: BIRADS Category 2: Benign. A letter regarding these results will be sent to the patient by the facility within 30 days. Approximately 10% of breast cancers are not detected by mammography. A normal mammogram should not delay biopsy of a clinically suspicious abnormality. [id number] Electronically Signed: Chris Puri, at 12:01 EST , Service support ,
== END ==
PROVIDERS: PCP Internal Medicine; Referring Provider Internal Medicine; Visit Provider Internal Medicine
DX: Z12.31 Encounter for screening mammogram for malignant neoplasm of breast (principal)
CPT/HCPCS: 77063; 77067

== ENCOUNTER → 2020-12-16 13:23 | Outpatient (CLI) | payer BC, SELFPAY ==
[2019-11-27 11:36] VITALS: BMI 26.2
--- NOTE | 2020-12-16 13:25 | BI_ITS ---
MAMMOGRAPHY - BILATERAL SCREENING REASON FOR EXAM: Female, 55 years old. Routine annual screening examination. PERTINENT HISTORY: Non-contributory. TECHNIQUE: Digital bilateral breast dixie (3D mammographic acquisition) in the CC and MLO projections. 2-D mediolateral oblique (MLO) and craniocaudad (CC) views of both breasts were obtained. CAD: Full Field Digital Mammography with Computer Added Detection was performed. COMPARISON: Comparison is made with prior study dated 12/05/2019 and 10/19/2018. FINDINGS: Breast Composition: There are scattered areas of fibroglandular density. There are no dominant masses or suspicious calcifications. No other significant abnormalities are identified. There has been no significant change since the prior study. BI/SCRN MAMM (CAD)W/DIXIE BILAT IMPRESSION: Stable bilateral screening mammogram. Yearly follow-up mammogram recommended. (A) ASSESSMENT CATEGORY: BIRADS Category 1: Negative. A letter regarding these results will be sent to the patient by the facility within 30 days. Approximately 10% of breast cancers are not detected by mammography. A normal mammogram should not delay biopsy of a clinically suspicious abnormality. [id number] Electronically Signed: Chris Puri MD at 16:28 EST , Service support ,
== END ==
PROVIDERS: PCP Internal Medicine; Referring Provider Obstetrics & Gynecology; Visit Provider Obstetrics & Gynecology
DX: Z12.31 Encounter for screening mammogram for malignant neoplasm of breast (principal)
CPT/HCPCS: 77063; 77067

== ENCOUNTER → 2021-02-26 08:37 | Outpatient (CLI) | payer BC, SELFPAY ==
[2021-02-26 08:13] VITALS: BMI 28.3
[2021-02-26 12:19] LABS: Absolute Lymphocyte Count 1.17 X10^3/uL (0.83-4.51); Absolute Neutrophil Count 3.3 X10^3/uL (2.0-7.7); Basophil# 0.07 X10^3/uL; Basophil% 1.4 % (0-1); Eosinophil# 0.14 X10^3/uL; Eosinophils% 2.7 % (0-5); Hematocrit 45.7 % (37-47); Hemoglobin 14.6 g/dL (12.0-15.0); Lymphocyte # 1.17 X10^3/ul (0.83-4.51); Lymphocyte % 22.8 % (19-41); Mean Corp Hgb Conc 31.9 g/dL (32-36); Mean Corpuscular Hgb 29.5 pg (27.0-32.0); Mean Corpuscular Volume 92.3 fL (81-99); Monocyte# 0.44 X10^3/uL; Monocyte% 8.6 % (0-10); NRBC Flagged by Analyzer 0 % (0-5); Neutrophil % 64.1 % (47-70); Platelet Count 262 K/mm3 (150-450); RBC Distribution Width CV 11.9 % (11.6-14.6); RBC Distribution Width SD 40.3 fl (35.1-43.9); Red Blood Count 4.95 M/mm3 (4.2-5.4); White Blood Count 5.1 K/mm3 (4.4-11.0)
[2021-02-26 12:38] LABS: ALB/GLOB Ratio 0.9 RATIO (0.9-2.4); AST(SGOT) 19 U/L (15-37); Alanine Aminotransfer ALT/SGPT 42 U/L (13-56); Albumin, Serum 3.7 g/dL (3.2-5.0); Alkaline Phosphatase 102 U/L (45-117); Anion Gap 3 (5-15); BUN 14 mg/dL (7-18); BUN/Creat Ratio 13.6 RATIO (10-20); Calcium,Total 9.3 mg/dL (8.5-10.1); Chloride 104 mmol/L (98-107); Cholesterol 170 mg/dL (200); Creatinine, Serum 1.03 mg/dL (0.55-1.02); EST Glomerular Filtration Rate 59 mL/min (>60); Est Glom Filt Rate - Afr Amer 71 mL/min (>60); Globulin 3.9 g/dL (2.2-4.2); Glucose 85 mg/dL (74-106); High Density Lipoprotein 59 mg/dL; Potassium 4.2 mmol/L (3.5-5.1); Protein, Total 7.6 g/dL (6.4-8.2); Sodium Level 138 mmol/L (136-145); T4 Free Direct 1.17 ng/dL (0.76-1.46); Thyroid Stim Hormone (TSH) 2.27 uIU/mL (0.358-3.74); Triglycerides 101 mg/dL; Very Low Density Lipoprotein 20 mg/dL (5-40)
== END ==
PROVIDERS: PCP Internal Medicine; Referring Provider Physician Assistant; Visit Provider Physician Assistant
DX: E78.5 Hyperlipidemia, unspecified (principal); E03.9 Hypothyroidism, unspecified
CPT/HCPCS: 36415; 80053; 80061; 84439; 84443; 85025

== ENCOUNTER → 2021-03-28 08:25 | Outpatient (CLI) | payer BC, SELFPAY ==
[2021-03-28 08:05] VITALS: BMI 28.7
[2021-03-28 12:23] LABS: Vitamin D,25 Hydroxy 54.4 ng/mL
[2021-03-28 12:27] LABS: Anion Gap 5 (5-15); BUN 13 mg/dL (7-18); BUN/Creat Ratio 12.9 RATIO (10-20); Calcium,Total 9.4 mg/dL (8.5-10.1); Chloride 105 mmol/L (98-107); Creatinine, Serum 1.01 mg/dL (0.55-1.02); EST Glomerular Filtration Rate 60 mL/min (>60); Est Glom Filt Rate - Afr Amer 73 mL/min (>60); Glucose 84 mg/dL (74-106); Potassium 4.4 mmol/L (3.5-5.1); Sodium Level 141 mmol/L (136-145)
== END ==
PROVIDERS: PCP Internal Medicine; Referring Provider Internal Medicine; Visit Provider Internal Medicine
DX: M85.80 Other specified disorders of bone density and structure, unspecified site (principal); N17.9 Acute kidney failure, unspecified
CPT/HCPCS: 36415; 80048; 82306

== ENCOUNTER → 2021-04-10 09:34 | Outpatient (CLI) | payer BC, SELFPAY ==
[2021-03-28 08:05] VITALS: BMI 28.7
--- NOTE | 2021-04-10 09:38 | BD_ITS ---
STUDY: DUAL ENERGY X-RAY ABSORPTIOMETRY / DXA REASON FOR EXAM: Female, 55 years old. Osteopenia. Loss of height. TECHNIQUE: Bone Mineral Density (BMD) measurements of lumbar spine and bilateral hips were obtained. COMPARISON: Comparison is made with prior study dated 07/14/2018. FINDINGS: Lumbar Spine (L1-L4): g/cm2 (0.890) / T-score (-2.3) / Z-score (-1.4) Findings are suggestive of osteopenia with a high fracture risk. Left Femur Total: g/cm2 (0.787) / T-score (-1.8) / Z-score (-1.0) Left Femoral Neck: g/cm2 (0.774) / T-score (-1.9) / Z-score (-0.8) Right Femur Total: g/cm2 (0.840) / T-score (-1.3) / Z-score (-0.6) Right Femoral Neck: g/cm2 (0.822) / T-score (-1.6) / Z-score (-0.5) The T-Scores on the most recent prior examination were: Lumbar Spine (L1-L4): There has been worsening of bone density since the previous examination. Left Femur Total: which represents a worsening of 3.7%. Right Femur Total: which represents a worsening of 1.2%. BD/Dexa Bone Density Study IMPRESSION: The patient is considered osteopenic as outlined below according to World Sadi Organization (WHO) criteria with a high fracture risk. There has been worsening of bone density since the previous examination. Reference Information: The T-score is the number of standard deviations above or below the standard which is normal for young adults at their peak bone mineral density. The World Health Organization (WHO) interprets the T-scores as follows: Above -1 Normal bone density Between -1 and -2.5 Osteopenia Equal to / or below -2.5 Osteoporosis As a practical clinical guideline, osteopenia may be graded as follows: Mild -1 through -1.5 Moderate -1.6 through -2.0 Severe -2.1 through -2.4 The Z-score is the number of standard deviations above or below age-matched controls. A Z-score of less than -1.5 would be considered abnormal. References: 1. NIH Osteoporosis and Related Bone Diseases www osteo.org 2. International Society for Clinical Densitometry www iscd.org 3. National Osteoporosis Foundation www nof.org Electronically Signed: Chris Puri MD at 15:51 EDT , Service support ,
== END ==
PROVIDERS: PCP Internal Medicine; Referring Provider Internal Medicine; Visit Provider Internal Medicine
DX: Z78.0 Asymptomatic menopausal state (principal)
CPT/HCPCS: 77080

== ENCOUNTER 2022-01-26 12:34 | Outpatient (CLI) | payer BC, SELFPAY ==
[2022-01-26 15:35] LABS: Absolute Lymphocyte Count 1.58 X10^3/uL (0.83-4.51); Absolute Neutrophil Count 3.2 X10^3/uL (2.0-7.7); Basophil# 0.06 X10^3/uL; Basophil% 1.1 % (0-1); Eosinophil# 0.15 X10^3/uL; Eosinophils% 2.8 % (0-5); Hematocrit 42.9 % (37-47); Hemoglobin 14.2 g/dL (12.0-15.0); Lymphocyte # 1.58 X10^3/ul (0.83-4.51); Lymphocyte % 29.2 % (19-41); Mean Corp Hgb Conc 33.1 g/dL (32-36); Mean Corpuscular Hgb 30.6 pg (27.0-32.0); Mean Corpuscular Volume 92.5 fL (81-99); Monocyte# 0.44 X10^3/uL; Monocyte% 8.1 % (0-10); NRBC Flagged by Analyzer 0 % (0-5); Neutrophil # 3.15 X10^3/uL (2.7-7.7); Neutrophil % 58.1 % (47-70); Platelet Count 244 K/mm3 (150-450); RBC Distribution Width CV 12.4 % (11.6-14.6); RBC Distribution Width SD 42.5 fl (35.1-43.9); Red Blood Count 4.64 M/mm3 (4.2-5.4); White Blood Count 5.4 K/mm3 (4.4-11.0)
[2022-01-26 15:46] LABS: BUN 10 mg/dL (7-18); Creatinine, Serum 0.95 mg/dL (0.55-1.02); Glucose 91 mg/dL (74-106)
[2022-01-26 15:47] LABS: ALB/GLOB Ratio 1.1 RATIO (0.9-2.4); AST(SGOT) 65 U/L (15-37); Alanine Aminotransfer ALT/SGPT 103 U/L (13-56); Albumin, Serum 3.9 g/dL (3.2-5.0); Alkaline Phosphatase 95 U/L (45-117); Anion Gap 4 (5-15); BUN/Creat Ratio 10.6 RATIO (10-20); Calcium,Total 9.9 mg/dL (8.5-10.1); Chloride 104 mmol/L (98-107); Cholesterol 179 mg/dL (200); EST Glomerular Filtration Rate 65 mL/min (>60); Est Glom Filt Rate - Afr Amer 78 mL/min (>60); Globulin 3.4 g/dL (2.2-4.2); High Density Lipoprotein 58 mg/dL; Protein, Total 7.3 g/dL (6.4-8.2); Sodium Level 139 mmol/L (136-145); Thyroid Stim Hormone (TSH) 4.25 uIU/mL (0.358-3.74); Triglycerides 205 mg/dL; Very Low Density Lipoprotein 41 mg/dL (5-40)
== END 2022-01-26 23:59 | disposition home or self-care (01) ==
LOC: BIMLAB 12:36
PROVIDERS: PCP Internal Medicine; Visit Provider Internal Medicine
DX: E78.5 Hyperlipidemia, unspecified (principal); E03.9 Hypothyroidism, unspecified
CPT/HCPCS: 36415; 80053; 80061; 84443; 85025

== ENCOUNTER → 2022-03-03 | Outpatient (CLI) | payer BC, SELFPAY ==
[2022-03-03 12:46] LABS: AST(SGOT) 23 U/L (15-37); Alanine Aminotransfer ALT/SGPT 38 U/L (13-56); Albumin, Serum 3.7 g/dL (3.2-5.0); Alkaline Phosphatase 75 U/L (45-117); Anion Gap 4 (5-15); BUN 11 mg/dL (7-18); BUN/Creat Ratio 11.5 RATIO (10-20); Calcium,Total 8.7 mg/dL (8.5-10.1); Chloride 105 mmol/L (98-107); Creatinine, Serum 0.96 mg/dL (0.55-1.02); EST Glomerular Filtration Rate 64 mL/min (>60); Est Glom Filt Rate - Afr Amer 77 mL/min (>60); Globulin 3.6 g/dL (2.2-4.2); Glucose 90 mg/dL (74-106); Potassium 3.9 mmol/L (3.5-5.1); Protein, Total 7.3 g/dL (6.4-8.2); Sodium Level 138 mmol/L (136-145); Thyroid Stim Hormone (TSH) 2.77 uIU/mL (0.358-3.74)
== END | disposition home or self-care (01) ==
LOC: BIMLAB 10:38
PROVIDERS: PCP Internal Medicine; Referring Provider Internal Medicine; Visit Provider Internal Medicine
DX: E03.9 Hypothyroidism, unspecified (principal); R74.8 Abnormal levels of other serum enzymes
CPT/HCPCS: 36415; 80053; 84443

== ENCOUNTER → 2022-05-18 | Outpatient (CLI) | payer BC, SELFPAY ==
--- NOTE | 2022-05-18 08:05 | BI_ITS ---
MAMMOGRAPHY - BILATERAL SCREENING 3-D TOMOSYNTHESIS REASON FOR EXAM: Female, 56 years old. Routine screening PERTINENT HISTORY: No significant family history. TECHNIQUE: 2-D mammograms and 3-D Tomosynthesis of the breast (s) were performed. CAD was performed. COMPARISON: 05/18/2022 FINDINGS: The breast composition is composed of scattered fibroglandular density. Scattered benign calcifications are seen. No dense spiculated masses or suspicious microcalcifications are identified. No architectural distortion is identified. There is no skin thickening or retraction. There has been no significant change since the prior study. BI/SCRN MAMM (CAD)W/DIXIE BILAT IMPRESSION: No mammographic signs of malignancy. Routine yearly mammograms recommended. ASSESSMENT CATEGORY: BIRADS Category 1: Negative. A letter regarding these results will be sent to the patient by the facility within 30 days. FOLLOW UP RECOMMENDATION: Yearly follow up mammogram recommended. (A) Approximately 10% of breast cancers are not detected by mammography. A normal mammogram should not delay biopsy of a clinically suspicious abnormality. Electronically Signed: Todd Irving MD at 14:45 EDT ,
== END | disposition home or self-care (01) ==
LOC: OPBI 08:03
PROVIDERS: PCP Internal Medicine; Visit Provider Obstetrics & Gynecology
DX: Z12.31 Encounter for screening mammogram for malignant neoplasm of breast (principal)
CPT/HCPCS: 77063; 77067

== ENCOUNTER → 2023-01-25 | Outpatient (CLI) | payer BC, SELFPAY ==
[2023-01-25 12:04] LABS: Absolute Lymphocyte Count 0.98 X10^3/uL (0.83-4.51); Absolute Neutrophil Count 2.6 X10^3/uL (2.0-7.7); Basophil# 0.05 X10^3/uL; Basophil% 1.2 % (0-1); Eosinophil# 0.14 X10^3/uL; Eosinophils% 3.4 % (0-5); Hematocrit 44.6 % (37-47); Hemoglobin 14.5 g/dL (12.0-15.0); Lymphocyte # 0.98 X10^3/ul (0.83-4.51); Lymphocyte % 23.6 % (19-41); Mean Corp Hgb Conc 32.5 g/dL (32-36); Mean Corpuscular Hgb 30.7 pg (27.0-32.0); Mean Corpuscular Volume 94.3 fL (81-99); Monocyte# 0.41 X10^3/uL; Monocyte% 9.9 % (0-10); NRBC Flagged by Analyzer 0 % (0-5); Neutrophil # 2.56 X10^3/uL (2.7-7.7); Neutrophil % 61.4 % (47-70); Platelet Count 239 K/mm3 (150-450); Red Blood Count 4.73 M/mm3 (4.2-5.4); White Blood Count 4.2 K/mm3 (4.4-11.0)
[2023-01-25 12:45] LABS: BUN 11 mg/dL (7-18); Creatinine, Serum 1.04 mg/dL (0.55-1.02); Glucose 106 mg/dL (74-106)
[2023-01-25 12:46] LABS: AST(SGOT) 24 U/L (15-37); Alanine Aminotransfer ALT/SGPT 46 U/L (13-56); Albumin, Serum 3.6 g/dL (3.2-5.0); Alkaline Phosphatase 83 U/L (45-117); Anion Gap 4 (5-15); BUN/Creat Ratio 10.6 RATIO (10-20); Calcium,Total 9.1 mg/dL (8.5-10.1); Chloride 108 mmol/L (98-107); Cholesterol 172 mg/dL (200); EST Glomerular Filtration Rate 58 mL/min (>60); Est Glom Filt Rate - Afr Amer 70 mL/min (>60); Globulin 3.6 g/dL (2.2-4.2); High Density Lipoprotein 58 mg/dL; Potassium 3.6 mmol/L (3.5-5.1); Protein, Total 7.2 g/dL (6.4-8.2); Sodium Level 138 mmol/L (136-145); Thyroid Stim Hormone (TSH) 1.85 uIU/mL (0.358-3.74); Triglycerides 199 mg/dL; Very Low Density Lipoprotein 40 mg/dL (5-40); Vitamin D,25 Hydroxy 63.4 ng/mL
== END | disposition home or self-care (01) ==
PROVIDERS: PCP Internal Medicine; Referring Provider Internal Medicine; Visit Provider Internal Medicine
DX: E03.9 Hypothyroidism, unspecified (principal); E78.5 Hyperlipidemia, unspecified; M85.80 Other specified disorders of bone density and structure, unspecified site
CPT/HCPCS: 36415; 80053; 80061; 82306; 84443; 85025

== ENCOUNTER → 2023-05-20 | Outpatient (CLI) | payer BC, SELFPAY ==
--- NOTE | 2023-05-20 10:05 | BI_ITS ---
MAMMOGRAPHY - BILATERAL SCREENING REASON FOR EXAM: Female, 57 years old. Routine annual screening examination. PERTINENT HISTORY: Non-contributory. TECHNIQUE: Digital bilateral breast dixie (3D mammographic acquisition) in the CC and MLO projections. 2-D mediolateral oblique (MLO) and craniocaudad (CC) views of both breasts were obtained. CAD: Full Field Digital Mammography with Computer Added Detection was performed. COMPARISON: Comparison is made with prior study May 18, 2022 and December 16, 2020. FINDINGS: Breast Composition: There are scattered areas of fibroglandular density. There are no dominant masses or suspicious calcifications. Stable small benign-appearing bilateral axillary lymph nodes. No other significant abnormalities are identified. There has been no significant change since the prior study. BI/SCRN MAMM (CAD)W/DIXIE BILAT IMPRESSION: Stable bilateral screening mammogram. Yearly follow-up mammogram recommended. (A) ASSESSMENT CATEGORY: BIRADS Category 2: Benign. A letter regarding these results will be sent to the patient by the facility within 30 days. Approximately 10% of breast cancers are not detected by mammography. A normal mammogram should not delay biopsy of a clinically suspicious abnormality. [id number] Electronically Signed: Chris Puri MD at 11:15 EDT ,
== END | disposition home or self-care (01) ==
PROVIDERS: PCP Internal Medicine; Referring Provider Internal Medicine; Visit Provider Internal Medicine
DX: Z12.31 Encounter for screening mammogram for malignant neoplasm of breast (principal)
CPT/HCPCS: 77063; 77067

== ENCOUNTER → 2023-06-01 | Outpatient (CLI) | payer BC, SELFPAY ==
--- NOTE | 2023-06-01 08:59 | BD_ITS ---
STUDY: DUAL ENERGY X-RAY ABSORPTIOMETRY / DXA REASON FOR EXAM: Female, 57 years old. Osteopenia TECHNIQUE: Bone Mineral Density (BMD) measurements of lumbar spine and bilateral hips were obtained. COMPARISON: Comparison is made with prior study dated April 10, 2021. FINDINGS: Lumbar Spine (L1-L4): g/cm2 (0.861) / T-score (-1.7) / Z-score (-0.4) Findings are suggestive of osteopenia with a moderate fracture risk. Left Femur Total: g/cm2 (0.795) / T-score (-1.2) / Z-score (-0.3) Left Femoral Neck: g/cm2 (0.642) / T-score (-1.9) / Z-score (-0.6) Right Femur Total: g/cm2 (0.817) / T-score (-1.0) / Z-score (-0.2) Right Femoral Neck: g/cm2 (0.7-1) / T-score (-1.2) / Z-score (0.1) The T-Scores on the most recent prior examination were: Lumbar Spine (L1-L4): There has been improvement of bone density since the previous examination. Left Femur Total: which represents an improvement of 9.3.. Right Femur Total: which represents an improvement of 4.8%. BD/Dexa Bone Density Study IMPRESSION: The patient is considered osteopenic as outlined below according to World Sadi Organization (WHO) criteria with a moderate fracture risk. There has been improvement of bone density since the previous examination. Reference Information: The T-score is the number of standard deviations above or below the standard which is normal for young adults at their peak bone mineral density. The World Health Organization (WHO) interprets the T-scores as follows: Above -1 Normal bone density Between -1 and -2.5 Osteopenia Equal to / or below -2.5 Osteoporosis As a practical clinical guideline, osteopenia may be graded as follows: Mild -1 through -1.5 Moderate -1.6 through -2.0 Severe -2.1 through -2.4 The Z-score is the number of standard deviations above or below age-matched controls. A Z-score of less than -1.5 would be considered abnormal. References: 1. NIH Osteoporosis and Related Bone Diseases www osteo.org 2. International Society for Clinical Densitometry www iscd.org 3. National Osteoporosis Foundation www nof.org Electronically Signed: Chris Puri MD at 9:24 EDT ,
== END | disposition home or self-care (01) ==
LOC: OPBD 08:53
PROVIDERS: PCP Internal Medicine; Referring Provider Internal Medicine; Visit Provider Internal Medicine
DX: M85.80 Other specified disorders of bone density and structure, unspecified site (principal)
CPT/HCPCS: 77080

== ENCOUNTER → 2023-08-02 | Outpatient (CLI) | payer BC, SELFPAY ==
[2023-08-02 15:36] LABS: Anion Gap 6 (5-15); BUN 16 mg/dL (7-18); BUN/Creat Ratio 16.2 RATIO (10-20); Calcium,Total 9.5 mg/dL (8.5-10.1); Chloride 106 mmol/L (98-107); Creatinine, Serum 0.99 mg/dL (0.55-1.02); EST Glomerular Filtration Rate 61 mL/min (>60); Est Glom Filt Rate - Afr Amer 74 mL/min (>60); Glucose 92 mg/dL (74-106); Potassium 4.3 mmol/L (3.5-5.1); Sodium Level 140 mmol/L (136-145)
== END | disposition home or self-care (01) ==
LOC: BIMLAB 12:01
PROVIDERS: PCP Internal Medicine; Visit Provider Internal Medicine
DX: N28.9 Disorder of kidney and ureter, unspecified (principal)
CPT/HCPCS: 36415; 80048

== ENCOUNTER → 2024-01-27 | Outpatient (CLI) | payer BC, SELFPAY ==
[2024-01-27 15:27] LABS: Absolute Lymphocyte Count 1.01 X10^3/uL (0.83-4.51); Absolute Neutrophil Count 3.7 X10^3/uL (2.0-7.7); Basophil# 0.06 X10^3/uL; Basophil% 1.1 % (0-1); Eosinophil# 0.09 X10^3/uL; Eosinophils% 1.7 % (0-5); Hematocrit 41.8 % (37-47); Hemoglobin 13.9 g/dL (12.0-15.0); Lymphocyte # 1.01 X10^3/ul (0.83-4.51); Lymphocyte % 19.2 % (19-41); Mean Corp Hgb Conc 33.3 g/dL (32-36); Mean Corpuscular Hgb 30.5 pg (27.0-32.0); Mean Corpuscular Volume 91.9 fL (81-99); Mean Platelet Vol. 9.9 fl (6.2-12.0); Monocyte# 0.38 X10^3/uL; Monocyte% 7.2 % (0-10); NRBC Flagged by Analyzer 0 % (0-5); Neutrophil # 3.69 X10^3/uL (2.7-7.7); Neutrophil % 70.4 % (47-70); Platelet Count 250 K/mm3 (150-450); RBC Distribution Width CV 12.4 % (11.6-14.6); RBC Distribution Width SD 41.7 fl (35.1-43.9); Red Blood Count 4.55 M/mm3 (4.2-5.4); White Blood Count 5.3 K/mm3 (4.4-11.0)
[2024-01-27 16:29] LABS: ALB/GLOB Ratio 1.1 RATIO (0.9-2.4); AST(SGOT) 28 U/L (15-37); Alanine Aminotransfer ALT/SGPT 40 U/L (13-56); Albumin, Serum 3.7 g/dL (3.2-5.0); Alkaline Phosphatase 81 U/L (45-117); Anion Gap 4 (5-15); BUN 15 mg/dL (7-18); Calcium,Total 9.9 mg/dL (8.5-10.1); Chloride 102 mmol/L (98-107); Cholesterol 171 mg/dL (200); Creatinine, Serum 1.07 mg/dL (0.55-1.02); EST Glomerular Filtration Rate 56 mL/min (>60); Est Glom Filt Rate - Afr Amer 67 mL/min (>60); Globulin 3.5 g/dL (2.2-4.2); Glucose 102 mg/dL (74-106); High Density Lipoprotein 57 mg/dL; Potassium 3.6 mmol/L (3.5-5.1); Protein, Total 7.2 g/dL (6.4-8.2); Sodium Level 135 mmol/L (136-145); Thyroid Stim Hormone (TSH) 0.38 uIU/mL (0.358-3.74); Triglycerides 115 mg/dL; Very Low Density Lipoprotein 23 mg/dL (5-40)
[2024-01-27 17:22] LABS: Vitamin D,25 Hydroxy 103.5 ng/mL
== END | disposition home or self-care (01) ==
LOC: BIMLAB 14:14
PROVIDERS: PCP Internal Medicine; Referring Provider Internal Medicine; Visit Provider Internal Medicine
DX: E03.9 Hypothyroidism, unspecified (principal); E78.5 Hyperlipidemia, unspecified; M85.80 Other specified disorders of bone density and structure, unspecified site
CPT/HCPCS: 36415; 80053; 80061; 82306; 84443; 85025

== ENCOUNTER → 2024-05-05 | Outpatient (CLI) | payer BC, SELFPAY ==
[2024-05-05 15:54] LABS: Anion Gap 6 (5-15); BUN 16 mg/dL (7-18); BUN/Creat Ratio 17.3 RATIO (10-20); Calcium,Total 9.6 mg/dL (8.5-10.1); Chloride 102 mmol/L (98-107); Creatinine, Serum 0.93 mg/dL (0.55-1.02); EST Glomerular Filtration Rate 66 mL/min (>60); Est Glom Filt Rate - Afr Amer 80 mL/min (>60); Glucose 88 mg/dL (74-106); Potassium 4.3 mmol/L (3.5-5.1); Sodium Level 137 mmol/L (136-145)
== END | disposition home or self-care (01) ==
LOC: BIMLAB 12:23
PROVIDERS: PCP Internal Medicine; Referring Provider Internal Medicine; Visit Provider Internal Medicine
DX: N28.9 Disorder of kidney and ureter, unspecified (principal)
CPT/HCPCS: 36415; 80048

== ENCOUNTER → 2024-09-29 | Outpatient (CLI) | payer BC, SELFPAY ==
--- NOTE | 2024-09-29 14:07 | BI_ITS ---
MAMMOGRAPHY - BILATERAL SCREENING REASON FOR EXAM: Female, 58 years old. Routine annual screening examination. PERTINENT HISTORY: Non-contributory. TECHNIQUE: Digital bilateral breast dixie (3D mammographic acquisition) in the CC and MLO projections. 2-D mediolateral oblique (MLO) and craniocaudad (CC) views of both breasts were obtained. CAD: Full Field Digital Mammography with Computer Added Detection was performed. COMPARISON: Comparison is made with prior study May 20, 2023 and May 18, 2022. FINDINGS: Breast Composition: There are scattered areas of fibroglandular density. There are no dominant masses or suspicious calcifications. Stable small benign-appearing bilateral axillary lymph nodes. No other significant abnormalities are identified. There has been no significant change since the prior study. BI/SCRN MAMM (CAD)W/DIXIE BILAT IMPRESSION: Stable bilateral screening mammogram. Yearly follow-up mammogram recommended. (A) ASSESSMENT CATEGORY: BIRADS Category 2: Benign. A letter regarding these results will be sent to the patient by the facility within 30 days. Approximately 10% of breast cancers are not detected by mammography. A normal mammogram should not delay biopsy of a clinically suspicious abnormality. [id number] Electronically Signed: Chris Puri MD at 14:52 EST ,
== END | disposition home or self-care (01) ==
LOC: OPBI 14:03
PROVIDERS: PCP Internal Medicine; Referring Provider Obstetrics & Gynecology; Visit Provider Obstetrics & Gynecology
DX: Z12.31 Encounter for screening mammogram for malignant neoplasm of breast (principal)
CPT/HCPCS: 77063; 77067

== ENCOUNTER → 2025-01-29 | Outpatient (CLI) | payer BC, SELFPAY ==
[2025-01-29 15:12] LABS: Absolute Lymphocyte Count 1.14 X10^3/uL (0.83-4.51); Absolute Neutrophil Count 3.3 X10^3/uL (2.0-7.7); Basophil# 0.05 X10^3/uL; Eosinophil# 0.09 X10^3/uL; Eosinophils% 1.8 % (0-5); Hematocrit 41.7 % (37-47); Hemoglobin 14.4 g/dL (12.0-15.0); Lymphocyte # 1.14 X10^3/ul (0.83-4.51); Lymphocyte % 22.6 % (19-41); Mean Corp Hgb Conc 34.5 g/dL (32-36); Mean Corpuscular Hgb 31.5 pg (27.0-32.0); Mean Corpuscular Volume 91.2 fL (81-99); Mean Platelet Vol. 9.9 fl (6.2-12.0); Monocyte# 0.41 X10^3/uL; Monocyte% 8.1 % (0-10); NRBC Flagged by Analyzer 0 % (0-5); Neutrophil # 3.33 X10^3/uL (2.7-7.7); Neutrophil % 66.1 % (47-70); Platelet Count 236 K/mm3 (150-450); RBC Distribution Width CV 12.2 % (11.6-14.6); RBC Distribution Width SD 40.6 fl (35.1-43.9); Red Blood Count 4.57 M/mm3 (4.2-5.4)
[2025-01-29 16:58] LABS: Cholesterol 170 mg/dL (<=200); High Density Lipoprotein 58 mg/dL; Low Density Lipoprotein Calc. 91 mg/dL; Triglycerides 105 mg/dL; Very Low Density Lipoprotein 21 mg/dL (5-40); Vitamin D,25 Hydroxy 84.4 ng/mL (30-100); cholesterol:hdl ratio screen 2.92
[2025-01-29 17:23] LABS: ALB/GLOB Ratio 1.4 RATIO (0.9-2.4); AST(SGOT) 28 U/L (<=31); Alanine Aminotransfer ALT/SGPT 35 U/L (<=34); Albumin, Serum 4.3 g/dL (3.4-4.8); Alkaline Phosphatase 89 U/L (35-104); Anion Gap 10 (5-15); BUN 17 mg/dL (4-19); BUN/Creat Ratio 17.4 RATIO (10-20); Calcium,Total 9.7 mg/dL (7.6-11.0); Carbon Dioxide 23.7 mmol/L (21.0-32.0); Chloride 102 mmol/L (98-108); Creatinine, Serum 0.96 mg/dL (0.70-1.20); EST Glomerular Filtration Rate 68 (>60); Glucose 90 mg/dL (70-99); Potassium 4.1 mmol/L (3.3-5.1); Protein, Total 7.3 g/dL (5.9-8.4); Sodium Level 136 mmol/L (133-145); Total Bilirubin 0.47 mg/dL (0.00-1.30)
== END | disposition home or self-care (01) ==
LOC: BIMLAB 11:38
PROVIDERS: PCP Internal Medicine; Referring Provider Internal Medicine; Visit Provider Internal Medicine
DX: Z00.00 Encounter for general adult medical examination without abnormal findings (principal); E03.9 Hypothyroidism, unspecified; M85.80 Other specified disorders of bone density and structure, unspecified site
CPT/HCPCS: 36415; 80053; 80061; 82306; 84443; 85025

== ENCOUNTER → 2025-07-05 | Outpatient (CLI) | payer BC, SELFPAY ==
--- NOTE | 2025-07-05 09:30 | BD_ITS ---
PROCEDURE: DEXA BONE DENSITY STUDY 07/05/2025 REASON FOR EXAM: POST MENOPAUSAL F, age 59 y/o . Postmenopausal. TECHNIQUE: Procedure Code: BDDBD Modality: DX Procedure: DEXA BONE DENSITY STUDY COMPARISON: None FINDINGS: BMD and T-SCORES Lumbar spine: 0.896 g/cm2, T-score -1.4 Left femoral neck: 0.631 g/cm2, T-score -2.0 Left total hip: 0.778 g/cm2, T-score -1.3 Right femoral neck: 0.580 g/cm2, T-score -2.4 Right total hip: 0.749 g/cm2, T-score -1.6 The World Health Organization has defined the following categories based on bone density: Normal bone density: T-score equal to or greater than -1.0 Osteopenia: T-score between -1.0 and -2.5 Osteoporosis: T-score equal to or less than -2.5 FRAX (or Comparable) Fracture Risk Assessment: 10 Year Probability of Fracture: Major Osteoporotic Fracture: 24% Hip Fracture: 7% (Note: FRAX is not to be reported in setting of normal range bone density, osteoporosis on DEXA, known history of osteoporosis, prior osteoporotic hip or vertebral fracture, or for any patient undergoing pharmacological treatment for bone loss.) The National Osteoporosis Foundation (NOF) recommends pharmacological treatment for patients with a FRAX 10-year risk of 3% or higher for a hip fracture, or 20% or higher for a major osteoporotic fracture, to prevent osteoporosis and reduce fracture risk. The patient does meet the pharmacological treatment recommendations for prevention of osteoporosis. BD/Dexa Bone Density Study IMPRESSION: OSTEOPENIA. Recommend follow-up as clinically warranted. Reading Location: [id number]
== END | disposition home or self-care (01) ==
LOC: OPBD 09:03
PROVIDERS: PCP Internal Medicine; Referring Provider Internal Medicine; Visit Provider Internal Medicine
DX: Z78.0 Asymptomatic menopausal state (principal)
CPT/HCPCS: 77080

== ENCOUNTER → 2025-10-09 | Outpatient (CLI) | payer BC, SELFPAY ==
--- NOTE | 2025-10-09 09:00 | BI_ITS ---
EXAM: SCRN MAMM (CAD)W/DIXIE BILAT DATE: 10/09/2025 CLINICAL HISTORY: F, Age 59 y/o , SCREENING TECHNIQUE: Procedure Code: [id number] Modality: MG Procedure: SCRN MAMM (CAD)W/DIXIE BILAT COMPARISON: Prior exam(s) were compared FINDINGS: TISSUE DENSITY: The breasts are heterogeneously dense, which may obscure small masses. Bilateral Breast Mammographic Findings: No significant masses, calcifications or other abnormalities are identified. BI/SCRN MAMM (CAD)W/DIXIE BILAT IMPRESSION: No mammographic evidence of malignancy. OVERALL FINAL ASSESSMENT BI-RADS 1: NEGATIVE. RECOMMENDATION: Routine annual follow-up in 1 Year Additional Recommendation none A letter with findings and recommendations will be mailed to the patient. Reading Location: [id number]
--- OUTSIDE RECORDS SUMMARY | 2025-10-09 09:18 | XMS RPT_ITS | CCD ---
Author Organization [facility] Care Team Providers Care Safety Risk Lead Name Role Phone Sharlene Hill MD Unavailable [phone] Yoly Snowden MD Unavailable [phone]) Dr. Yoly Snowden Primary Care Provider 1([phone]) Nisa Robbins Attending Provider Unavailable Sp, Dr. Frederick Attending Provider [phone] Sp, Dr. Frederick Referring Provider [phone] Sp, Dr. Frederick Primary Care Provider 1(33 0) Dr. Sharlene Hill Attending Provider 1(330 ) Dr. Yoly Snowden Primary Care Provider 1(33 0) Dr. Yoly Snowden Attending Provider [phone] Sp, Dr. Frederick Referring Provider [phone] Dr. Sharlene Hill Attending Provider 1(330 ) Dr. Yoly Snowden Primary Care Provider 1(33 0) Dr. Yoly Snowden Referring Provider [phone])2 Sp, Dr. Frederick Primary Care Provider 1(33 0) Dr. Yoly Snowden Attending Provider [phone])2 Dr. Yoly Snowden Referring Provider [phone])2 Dr. Yoly Snowden MD Primary Care Provider Sp CAN, Dr. Frederick Attending Provider 1(33 0) Dr. Chris Snowden MDbe Referring Provider [phone] Sergio CAN, Dr. Su Attending Provider Sp CAN, Dr. Frederick Primary Care Physician Sp CAN, Dr. Frederick Attending Physician [phone] Sp CAN, Dr. Frederick Referring Provider [phone] Oleghe, Efewongbe Primary Care Unavailable Oleghe, Efewongbe Attending Unavailable Oleghe, Efewongbe Referring Unavailable Oleghe, Efewongbe Primary Care Unavailable Oleghe, Efewongbe Attending Unavailable Oleghe, Efewongbe Referring Unavailable Oleghe, Efewongbe Primary Care Unavailable Sharlene Hill Attending Unavailable Sharlene Hill Referring Unavailable Oleghe, Efewongbe Primary Care Unavailable Sharlene Hill Attending Unavailable Oleghe, Efewongbe Referring Unavailable Oleghe, Efewongbe Primary Care Unavailable Oleghe, Efewongbe Attending Unavailable Oleghe, Efewongbe Referring Unavailable Medications Current Medications Medication Drug Class(es) Dates Sig (Normalized) Sig (Original) alendronic acid 70 mg oral tablet (20 sources) Bisphosphonate Start: 07-06-2025 take 1 tablet by mouth every week Start: 04-29-2021 End: 07-06-2025 take 1 tablet by mouth every week Alendronate 35 mg tablet Discontinued 35 mg PO EVERY WEEK 14 April 27, 2025 4:37pm July 06, 2025 11:59am atorvastatin 20 mg oral tablet (20 sources) HMG-CoA Reductase Inhibitor Start: 08-01-2019 End: 04-09-2025 take 1 tablet by mouth once daily Start: 01-11-2018 End: 05-15-2019 take 1 tablet by mouth once daily Atorvastatin (Lipitor) 20 mg tablet Discontinued 20 mg PO daily 90 August 10, 2018 8:56am May 15, 2019 3:35pm CHOLESTEROL Start: 07-27-2017 take 1 tablet by ronnie th once daily ATORVASTATIN CALCIUM 20 MG TABS One tablet by mouth daily ATORVASTATIN CALCIUM [id number] Jay Rodriguez [employer] calcium ascorbate 500 mg ora l tablet (6 sources) Start: 01-25-2023 take 1 tablet by ronnie th once daily calcium carbonate 1500 mg or al tablet (6 sources) Start: 01-25-2023 take 1 tablet by ronnie th once daily cholecalciferol 0.05 mg oral capsule (9 sources) Vitamin D Start: 01-25-2023 End: 01-29-2025 take 1 capsule by mouth once Fish,Flaxseed Oil-E.Prim-Bcu rr (Fish, Flax Andborage Oil(Prim)) 400-400-200 mg capsule (6 sources) Start: 01-25-2023 Start: 01-25-2023 Fish,Flaxseed Oil-E.Prim-Bcurr (Fish, Flax Andborage Oil(Prim)) 400-400-200 mg capsule Active NMA PO January 25, 2023 12:00am Start: 01-25-2023 Fish,Flaxseed Oil-E.Prim-Bcurr (Fish, Flax Andborage Oil(Prim)) 400-400-200 mg capsule Active CAP PO January 25, 2023 12:00am magnesium oxide 400 mg oral tablet (6 sources) Start: 01-25-2023 take 1 tablet by mouth once daily Multivitamin preparation (3 sources) Start: 01-25-2023 take 1 tablet by mouth once daily Multivitamin Active 1 TABLET PO DAILY January 25, 2023 12:00am Multivitamin tablet (3 sources) Start: 01-25-2023 Start: 01-25-2023 Multivitamin t ablet Active 1 {tbl} PO DAILY January 25, 2023 12:00am 24 hr oxybutynin chloride 5 mg extended release oral tablet (20 sources) Cholinergic Muscarinic Antagonist Start: 08-08-2019 End: 04-09-2025 take 1 tablet by mouth once daily Start: 08-01-2019 End: 11-27-2019 take 1 tablet by mouth once daily Oxybutynin Chloride 5 mg tablet Discontinued 5 mg PO DAILY August 01, 2019 5:25pm November 27, 2019 11:34am Start: 01-11-2018 End: 05-15-2019 take 1 tablet by mouth once daily Oxybutynin Chloride 5 mg tablet extended release 24hr Discontinued 5 mg PO daily 90 August 10, 2018 8:58am August 11, 2018 12:09pm BLADDER Start: 07-13-2017 take 1 tablet by ronnie th once daily DITROPAN XL 5 MG [id number] One tablet by mouth daily OXYBUTYNIN CHLORIDE [id number] Sharlene Hill MD Start: 07-13-2017 take 1 tablet by ronnie th once daily DITROPAN XL 5 MG [id number] One tablet by mouth daily OXYBUTYNIN CHLORIDE [id number] Sharlene Hill MD Completed/Discontinued Medications Medication Drug Class(es) Dates Sig (Normalized) Sig (Original) acetaminophen 325 mg / oxyCODONE hydrochloride 5 mg oral tablet (16 sources) Opioid Agonist Start: 01-22-2018 End: 02-04-2018 Oxycodone-Acetaminoph en 1 TABLET tablet Discontinued 2 {tbl} PO EVERY 4 HOURS NEEDED as needed for Moderate-Severe pain 7 January 23, 2018 12:00am February 04, 2018 8:43am Postoperative pain Other acute postprocedural pain Start: 01-22-2018 End: 02-04-2018 take 2 tablets by mouth every four hours as needed Oxycodone-Acetaminophen Discontinued 2 TABLET PO EVERY 4 HOURS NEEDED 14 05January 23, 2018 12:00am February 04, 2018 8:43am CALCIUM CITRATE-VITAMIN D TABS (5 sources) Start: 07-27-2017 take 1 tablet by mouth twice daily CALCIUM CITRATE + D3 MAXIMUM TABS One tablet by mouth twice daily CALCIUM CITRATE-VITAMIN D TABS [id number] Jay Rodriguez [employer] estradiol 0.1 mg/ml vaginal cream (2 sources) Estrogen Start: 08-05-2017 ESTRACE 0.1 MG/GM CREA apply fingertip amount to vagina nightly x 2 weeks, then every other night x 2 weeks, then 1-3x weekly for maintenance ESTRADIOL [id number] Sharlene Hill MD Norgestimate-Ethinyl Estradiol (8 sources) Progestin, Estrogen Start: 04-24-2020 End: 02-17-2021 take 1 tablet by mouth once daily Norgestimate-Ethinyl Estradiol (Sprintec (28)) 0.25-35 mg-mcg tablet Discontinued 1 TABLET PO DAILY April 24, 2020 8:36am February 17, 2021 10:58am Start: 04-24-2020 End: 02-17-2021 Norgestimate-Ethinyl Estradi ol (Sprintec (28)) 0.25-35 mg-mcg tablet Discontinued 1 {tbl} PO DAILY April 24, 2020 12:00am February 17, 2021 10:58am Start: 04-24-2020 End: 02-17-2021 Norgestimate-Ethinyl Estradi ol (Sprintec (28)) 0.25-35 mg-mcg tablet Discontinued 1 {tbl} PO DAILY April 24, 2020 12:00am February 17, 2021 10:58am Start: 04-24-2020 End: 02-17-2021 take 1 tablet by mouth once daily Norgestimate-Ethinyl Estradiol (Sprintec (28)) 0.25-35 mg-mcg tablet Discontinued 1 TABLET PO DAILY April 24, 2020 12:00am February 17, 2021 10:58am Flucelvax Quad (flu vac qs (6 ms up) CD) 60 mcg (15 mcg x (2 sources) Start: 08-04-2021 End: 08-04-2021 inject 15 ug by intramuscular injection once Flucelvax Quad (flu vac qs (6 ms up) CD) 60 mcg (15 mcg x Discontinued 60 MCG IM ONCE 0.5 August 04, 2021 10:01am August 04, 2021 11:20am FLUoxetine 40 mg oral capsule (20 sources) Serotonin Reuptake Inhibitor Start: 08-08-2019 End: 04-09-2025 take 1 capsule by mouth once daily Fluoxetine (Prozac) 40 mg capsule Discontinued 40 mg PO DAILY 90 July 24, 2021 12:02pm March 02, 2022 3:22pm Start: 01-11-2018 End: 05-15-2019 take 1 capsule by mouth once daily Fluoxetine (Prozac) 40 mg capsule Discontinued 40 mg PO daily 90 August 10, 2018 8:56am May 15, 2019 3:35pm DEPRESSION Start: 07-27-2017 take 1 tablet by ronnie once daily FLUOXETINE HCL 40 MG CAPS One tablet by mouth daily FLUOXETINE HCL [id number] Jay LOPEZP-C gabapentin 300 mg oral capsule (20 sources) Anti-epileptic Agent Start: 02-26-2021 End: 01-27-2024 take 1 capsule by mouth twice daily Gabapentin 300 mg capsule Discontinued 300 mg PO TWICE A DAY 180 0 October 20, 2022 9:52am January 25, 2023 9:41am Start: 01-11-2018 End: 02-17-2021 take 1 capsule by mouth twice daily Gabapentin 300 mg capsule Discontinued 300 mg PO TWICE A DAY 180 1 August 01, 2019 5:25pm February 17, 2021 10:57am NERVE PAIN Start: 07-27-2017 take 1 tablet by ronnie twice daily GABAPENTIN 300 MG CAPS One tablet by mouth twice daily GABAPENTIN [id number] Jay SUGGS-C levonorgestrel 0.626357 mg/hr intrauterine system (2 sources) Progestin, Progestin-containing Intrauterine Device Start: 08-11-2018 End: 08-11-2018 levonorgestrel 20 mcg/24 hours (6 yrs) 52 mg intrauterine device Discontinued 1 INSERT INTRA-UTER ONCE August 11, 2018 11:07am August 11, 2018 2:34pm levothyroxine sodium 0.075 mg oral tablet (20 sources) l-Thyroxine Start: 08-10-2018 End: 04-10-2025 Levothyroxine 100 mcg tablet Discontinued 100 ug PO .wed, wed, wed 90 December 18, 2022 10:06am January 27, 2024 2:13pm Start: 01-11-2018 End: 10-19-2024 take 1 tablet by mouth once Levothyroxine (Synthroid) 75 mcg tablet Discontinued 75 ug PO every Wednesday, , , Sat June 03, 2023 8:41am January 27, 2024 2:13pm THYROID Start: 01-11-2018 End: 08-10-2018 Levothyroxine 100 mcg capsul e Discontinued 100 ug PO MOJanuary 11, 2018 12:00am August 10, 2018 9:01am THYROID Start: 07-27-2017 LEVOTHYROXINE SODIUM 100 MCG TABS take every mon, wed, and wed LEVOTHYROXINE SODIUM [id number] Jay SUGGS-C Start: 07-27-2017 LEVOTHYROXINE SODIUM 75 MCG TABS take 1 every tue, thur, sat, and sun LEVOTHYROXINE SODIUM [id number] Jay Rodriguez [employer] methylPREDNISolone 4 mg oral tablet (8 sources) Corticosteroid Start: 07-21-2018 End: 08-25-2018 take 1 tablet by mouth once Methylprednisolone (Medrol (Renato)) 4 mg tablets,dose pack Discontinued 0 PO per package directions 21 July 21, 2018 12:00am August 25, 2018 2:45pm PO PER PKG DIR MULTIPLE VITAMIN (5 sources) Start: 07-27-2017 take 1 tablet by mouth once daily DAILY VALUE MULTIVITAMIN TABS One tablet by mouth daily MULTIPLE VITAMIN [id number] Jay Rodriguez [employer] naproxen 250 mg oral tablet (20 sources) Nonsteroidal Anti-inflammatory Drug Start: 01-22-2018 End: 01-25-2023 take 250-500 mg by mouth every eight hours as needed for pain Naproxen 250 mg tablet Discontinued 250 - 500 mg PO EVERY 8 HOURS NEEDED as needed for MILD PAIN 30 August 10, 2018 8:58am January 25, 2023 9:20am OMEGA-3 FATTY ACIDS (5 sources) Start: 07-27-2017 take 1 tablet by mouth twice daily [facility] NATURAL FISH OIL 1000 MG CAPS One tablet by mouth twice daily OMEGA-3 FATTY ACIDS [id number] Jay Rodriguez [employer] predniSONE 10 mg oral tablet (8 sources) Start: 05-15-2019 End: 05-27-2019 Prednisone 10 mg tablet Discontinued 10 mg PO daily 30 12 May 15, 2019 12:00am May 26, 2019 12:00am May 27, 2019 12:08am Unspecified contact dermatitis, unspecified cause Take 4 tabs once daily days 1-3 3 tabs once daily days 4-6 2 tabs once daily days 7-9 and 1 tab once daily days 10-12. Problems Active Problems Problem Classification Problem Date Documented Date Episodic/Chronic Acute and unspecified renal failure (8 sources) Injury of kidney; Translations: [Acute kidney failure, unspecified] 03-28-2021 Episodic Allergic reactions (8 sources) Irritant contact dermatitis due to plant; Translations: [Irritant contact dermatitis due to plants, except food] 05-15-2019 Episodic Anxiety disorders (5 sources) Mixed anxiety and depressive disorder; Translations: [Other specified anxiety disorders] Onset: 07-27-2017 07-27-2017 Chronic Disorders of lipid metabolism (20 sources) Hyperlipidemia; Translations: [Hyperlipidemia, unspecified] Onset: 07-27-2017 07-27-2017 Chronic Esophageal disorders (8 sources) Gastroesophageal reflux disease; Translations: [Gastro-esophageal reflux disease without esophagitis] 11-04-2018 Chronic Headache; including migraine (8 sources) Sinus headache; Translations: [Sinus headache] 11-04-2018 Episodic Immunizations and screening for infectious disease (8 sources) Needs influenza immunization; Translations: [Encounter for immunization] 08-04-2021 Episodic Menopausal disorders (2 sources) Atrophy of vagina; Translations: [Postmenopausal atrophic vaginitis] Onset: 08-05-2017 08-05-2017 Chronic Other bone disease and musculoskeletal deformities (8 sources) Osteopenia; Translations: [Other specified disorders of bone density and structure, unspecified site] 07-21-2018 Episodic Other bone disease and musculoskeletal deformities (11 sources) Osteopenia with high fracture risk; Translations: [Other specified disorders of bone density and structure, unspecified site] 01-26-2022 Episodic Comment on above: sp manages Other congenital anomalies (3 sources) Herniated urinary bladder 08-14-2018 Chronic Other connective tissue disease (4 sources) Pain in toe; Translations: [Pain in right toe(s)] 01-29-2025 Episodic Other connective tissue disease (1 source) Pain of toe of right foot; Translations: [Pain in right toe(s)] 01-29-2025 Episodic Other diseases of kidney and ureters (8 sources) Abnormal renal function; Translations: [Disorder of kidney and ureter, unspecified] 01-25-2023 Episodic Other liver diseases (8 sources) Elevated liver enzymes level; Translations: [Abnormal levels of other serum enzymes] 01-26-2022 Episodic Other nervous system disorders (12 sources) Neuropathy; Translations: [Polyneuropathy, unspecified] Onset: 07-27-2017 07-27-2017 Chronic Other nervous system disorders (2 sources) Polyneuropathy, unspecified; Translations: [Mononeuritis of unspecified site] 01-25-2023 Chronic Prolapse of female genital organs (18 sources) Incomplete uterovaginal prolapse; Translations: [Uterine prolapse] Onset: 08-05-2017 08-05-2017 Chronic Residual codes; unclassified (8 sources) Postmenopausal state; Translations: [Asymptomatic menopausal state] 03-28-2021 Episodic Residual codes; unclassified (8 sources) Family history of osteoporosis; Translations: [Family history of osteoporosis] 04-29-2021 Episodic Residual codes; unclassified (1 source) Asymptomatic menopausal state; Translations: [Asymptomatic menopausal state] Onset: 07-18-2025 Episodic Spondylosis; intervertebral disc disorders; other back problems (16 sources) Radicular syndrome of lower limbs; Translations: [Radiculopathy, site unspecified] 08-25-2018 Episodic Thyroid disorders (20 sources) Hypothyroidism; Translations: [Hypothyroidism, unspecified] Onset: 07-27-2017 07-27-2017 Chronic Unclassified (1 source) No current problems or disability 07-14-2017 Unclassified (5 sources) Long-term drug therapy; Translations: [Other supervisor long goods (current) drug therapy] Onset: 07-27-2017 07-27-2017 Unclassified (1 source) Gynecologic examination ; Translations: [Encounter for gynecological examination (general) (routine) with abnormal findings] Onset: 08-05-2017 08-05-2017 Unclassified (1 source) Screening mammography ; Translations: [Encounter for screening mammogram for malignant neoplasm of breast] Onset: 08-05-2017 08-05-2017 Unclassified (3 sources) Influenza vaccination ; Translations: [Encounter for immunization] Onset: 07-27-2017 07-27-2017 Unclassified (4 sources) Pain of toe of right foot; Translations: [M79.674 - Pain in right toe(s)] Past or Other Problems Problem Classification Problem Date Documented Da te Episodic/Chronic Other bone disease and musculoskeletal deformities (5 sources) Other specified disorders of bone density and structure, unspecified site; Translations: [Disorder of bone and cartilage, unspecified] Onset: 03-19-2025 Episodic Other connective tissue disease (1 source) Pain in right toe(s); Translations: [Pain in right toe(s)] Onset: 01-29-2025 Episodic Other screening for suspected conditions (not mental disorders or infectious disease) (1 source) Encounter for screening mammogram for malignant neoplasm of breast; Translations: [Encounter for screening mammogram for malignant neoplasm of breast] Onset: 11-01-2024 Episodic Unclassified (5 sources) Herniated urinary bladder; Translations: [Cystocele] 08-14-2018 Results Test Name Value Interpretation Reference Range Facility Bone density reportOrdered B y: Ernestina Joy on 07-06-2025 Study report Skeletal system DXA [facility] [address] [place], [place] [id number] Dexa Bone Density Study MR#: [id number] Acct: [id number] Name: DONNY LAWTON Rep #: [id number] : 1965 F 59 From: Beni Joy DO PCP: Dr. Yoly Snowden MD Status: R EG CLI Study:Dexa Bone Density Study Date of Exam: 07/05/25 Exam# [id number] Ordering Dr: Jayden Snowden MD PROCEDURE: DEXA BONE DENSITY STUDY 07/05/2025 REASON FOR EXAM: POST MENOPAUSAL F, age 59 y/o . Postmenopausal. TECHNIQUE: Procedure Code: BDDBD Modality: DX Procedure: DEXA BONE DENSITY STUDY COMPARISON: None FINDINGS: BMD and T-SCORES Lumbar spine: 0.896 g/cm2, T-score -1.4 Left femoral neck: 0.631 g/cm2, T-score -2.0 Left total hip: 0.778 g/cm2, T-score -1.3 Right femoral neck: 0.580 g/cm2, T-score -2.4 Right total hip: 0.749 g/cm2, T-score -1.6 The World Health Organization has defined the following categories based on bonedensity: Normal bone density: T-score equal to or greater than -1.0 Osteopenia: T-score between -1.0 and -2.5 Osteoporosis: T-score equal to or less than -2.5 FRAX (or Comparable) Fracture Risk Assessment: 10 Year Probability of Fracture: Major Osteoporotic Fracture: 24% Hip Fracture: 7% (Note: FRAX is not to be reported in setting of normal range bone density, osteoporosis on DEXA, known history of osteoporosis, prior osteoporotic hip or vertebral fracture, or for any patient undergoing pharmacological treatment for bone loss.) The National Osteoporosis Foundation (NOF) recommends pharmacological treatment for patients with a FRAX 10-year risk of 3% or higher for a hip fracture, or 20% or higher for a major osteoporotic fracture, to prevent osteoporosis and reduce fracture risk. The patient does meet the pharmacological treatment recommendations for prevention of osteoporosis. BD/Dexa Bone Density Study IMPRESSION: OSTEOPENIA. Recommend follow-up as clinically warranted. Reading Location: [id number] CC: Dr. Yoly Snowden MD ~ Pad Cutter: Signed [facility] Dexa Bone Density Studyon Dexa Bone Density Study [facility] Imaging Services [address] [place] [id number] Dexa Bone Density Study MR#: [id number] Acct: [id number] Name: DONNY LAWTON Rep #: [id number] : 1965 F 59 From: Ernestina Shipley PCP: Dr. Yoly Snowden MD Status: REG CLI Study: Dexa Bone Density Study Date of Exam: 07/05/25 Exam# [id number] Ordering Dr: Yoly Snowden MD PROCEDURE: DEXA BONE DENSITY STUDY 07/05/2025 REASON FOR EXAM: POST MENOPAUSAL F, age 59 y/o . Postmenopausal. TECHNIQUE: Procedure Code: BDDBD Modality: DX Procedure: DEXA BONE DENSITY STUDY COMPARISON: None FINDINGS: BMD and T-SCORES Lumbar spine: 0.896 g/cm2, T-score -1.4 Left femoral neck: 0.631 g/cm2, T-score -2.0 Left total hip: 0.778 g/cm2, T-score -1.3 Right femoral neck: 0.580 g/cm2, T-score -2.4 Right total hip: 0.749 g/cm2, T-score -1.6 The World Health Organization has defined the following categories based on bone density: Normal bone density: T-score equal to or greater than -1.0 Osteopenia: T-score between -1.0 and -2.5 Osteoporosis: T-score equal to or less than -2.5 FRAX (or Comparable) Fracture Risk Assessment: 10 Year Probability of Fracture: Major Osteoporotic Fracture: 24% Hip Fracture: 7% (Note: FRAX is not to be reported in setting of normal range bone density, osteoporosis on DEXA, known history of osteoporosis, prior osteoporotic hip or vertebral fracture, or for any patient undergoing pharmacological treatment for bone loss.) The National Osteoporosis Foundation (NOF) recommends pharmacological treatment for patients with a FRAX 10-year risk of 3% or higher for a hip fracture, or 20% or higher for a major osteoporotic fracture, to prevent osteoporosis and reduce fracture risk. The patient does meet the pharmacological treatment recommendations for prevention of osteoporosis. BD/Dexa Bone Density Study IMPRESSION: OSTEOPENIA. Recommend follow-up as clinically warranted. Reading Location: [id number] CC: Dr. Yoly Snowden MD Pad Cutter: Signed Normal [facility] Mobile Phlebotomist Office Visit Reporton 03-19-2025 Mobile Phlebotomist Office Visit Report [facility]'[address], [address] [place] [address] OFFICE VISIT Date of Service: 03/19/25 MR#: [id number] Acct: [id number] Name: DONNY LAWTON Rep #: [id number] : 1965 Provider: Dr. 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 Is patient in pain?: No Allergies No Known Allergies Allergy (Verified 03/19/25 10:16) Medications ???Medication ???Instructions ???Recorded ???Confirmed ???Type ascorbate calcium (vitamin C) 500 500 mg PO DAILY 01/25/23 03/19/25 History mg tablet calcium carbonate (Calcium 600) 600 mg PO DAILY 01/25/23 03/19/25 History fish oil 400 mg-flaxseed 400 cap PO 01/25/23 03/19/25 History mg-prim,blk social worker assistant,borag oils 200 mg capsule (Fish, Flax and Borage Oil ([place])) magnesium oxide 400 mg PO DAILY 01/25/23 03/19/25 History multivitamin 1 tab PO DAILY 01/25/23 03/19/25 H istory fluoxetine 40 mg capsule (Prozac) 40 mg PO DAILY #90 caps 01/27/24 03/19/25 Rx gabapentin 300 mg capsule 300 mg PO BID #180 caps 01/27/24 0 03/19/25 Rx levothyroxine 100 mcg tablet 100 mcg PO .mon, wed, fri #90 tabs 01/27/24 03/19/25 Rx alendronate 35 mg tablet 35 mg PO QWEEK #14 tabs 03/01/24 0 03/19/25 Rx atorvastatin 20 mg tablet 20 mg PO DAILY #90 tabs 07/10/24 0 03/19/25 Rx oxybutynin chloride 5 mg See Rx Instructions .Route 4 03/19/25 Rx tablet,extended release 24 hr .COMPLEX #90 tabs levothyroxine 75 mcg tablet 75 mcg PO [facility] THYROID #90 tab s 10/19/24 03/19/25 Rx (Synthroid) cholecalciferol (vitamin D3) 50 50 mcg PO .3x/wk 01/29/25 03/19/25 History mcg (2,000 unit) capsule Is last menstrual period known: No Post menopausal: Yes Patient : No : No PFSH Medical History Toe pain, right Abnormal kidney function Elevated liver enzymes Flu vaccine need Family history of osteoporosis Osteopenia with high risk of fracture Acute kidney injury Routine health maintenance Post-menopausal Sinus headache Hypothyroidism GERD (gastroesophageal reflux disease) Neuropathy Hyperlipidemia Surgical History History of total vaginal hysterectomy (TVH) ( 01/21/18) Family History Mother Hypertension Heart disease Father CVA (cerebral vascular accident) Social History number of children: 3 current occupational status: retired Smoking Status: Never smoker alcohol intake: never substance use type: does not use caffeine: No what type of physical activity do you participate in: walking, bicycling and weight training frequency: 3-4 times per week seatbelt use: always do you feel safe at home: Yes additional social history: - [place] History 3 Elective abortions Hx Para 3 Spontaneous abortions Hx # Term Pregnancies Ectopic pregnancies Hx # Pregnancies Multiple births # of living children Past Pregnancies Del. Date Name GA/Weeks Outcome Route Bth Weight Infant Gen Labor Lgth Anesthesia Del Locatn Provider FOB Unknown Sue-1995 Unknown [place] Farley-1997 Unknown Ricardo-1999 HPI Encounter for routine gynecological examination Details: DONNY LAWTON is a 59 year old who presents for annual exam. Last PAP: 2015, has had hysterectomy History of abnormal PAP: Last mammogram: 09/29/2024 - normal History of abnormal mammogram: Colon cancer screening: Other preventative health care screenings: PCP Oleghe. Camejo 2022. ROS Const Constitutional: Reports as per HPI; Denies fatigue, increased appetite, poor appetite, weight gain or weight loss Cardio Card: Denies chest pain Resp Resp: Denies cough or dyspnea GI GI: Reports as per HPI; Denies abdominal pain, bloating, constipation, nausea or vomiting : Reports as per HPI and other; Denies difficulty voiding, dysuria, hematuria, nipple discharge, pelvic pain, prolapse symptoms, urinary frequency, urinary incontinence, urinary urgency, vaginal discharge, vaginal dryness, vaginal odor or vaginal pruritus Skin Skin/Breast: Denies changing lesions, breast mass, breast pain, breast skin changes or nipple discharge Psych Psych: D (more content not included)... Normal [facility] Absolute lymphocyte countOrd ered By: Yoly Snowden on 01-29-2025 Lymphocytes Auto (Unsp spec) [#/Vol] 1.14 10*3/uL 0.83-4.51 [facility] Absolute neutrophil countOrd ered By: Yoly Snowden on 01-29-2025 Neutrophils (Bld) [#/Vol] 3.3 10*3/uL 2.0-7.7 [facility] Anion gap in Serum or Plasma Ordered By: Yoly Snowden on 01-29-2025 Anion gap [Moles/Vol] 10 mmol/L 5- [facility] Automated lymphocyte count a s percentage of total leukocytesOrdered By: Yoly Snowden on 01-29-2025 Lymphocytes/100 WBC Auto (Unsp spec) 22.6 % - [facility] BUN/creatinine ratioOrdered By: celestinotatitlekrhea Snowden on 01-29-2025 Urea nitrogen/Creatinine [Mass ratio] 17.4 mg/mg 10- [facility] Basophil percentageOrdered B y: Yoly Snowden on 01-29-2025 Basophils/100 WBC (Bld) 1.0 % 0-1 [facility] Bilirubin, totalOrdered By: Brooketatitlekrhea Snowden on 01-29-2025 Bilirubin [Mass/Vol] 0.47 mg/dL 0.00-1.30 [facility] CBC W/Diff, Automatedon 01-16 Absolute Lymph 1.14 X10 3/uL Normal 0.83-4.51 [facility] Comment on above: Performed By: #### L 506.1001, L500.4050, L100.0100, L500.4100, L501.9520 #### [facility] [address] [place], [address] Absolute Neut 3.3 X10 3/uL Normal 2.0-7.7 [facility] Comment on above: Performed By: #### L 506.1001, L500.4050, L100.0100, L500.4100, L501.9520 #### [facility] [address] [place], [address] Basophils/100 WBC (Bld) 1.0 % Normal 0-1 [facility] Comment on above: Performed By: #### L 506.1001, L500.4050, L100.0100, L500.4100, L501.9520 #### [facility] [address] [place], [address] Eosinophils/100 WBC (Bld) 1.8 % Normal 0-5 [facility] Comment on above: Performed By: #### L 506.1001, L500.4050, L100.0100, L500.4100, L501.9520 #### [facility] [address] [place], [address] Erythrocyte distribution width (RBC) [Ratio] 12.2 % Normal 11.6-14.6 [facility] Comment on above: Performed By: #### L 506.1001, L500.4050, L100.0100, L500.4100, L501.9520 #### [facility] [address] [place], [address] Hematocrit (Bld) [Volume fraction] 41.7 % Normal 37-47 [facility] Comment on above: Performed By: #### L 506.1001, L500.4050, L100.0100, L500.4100, L501.9520 #### [facility] [address] [place], [address] Hemoglobin (Bld) [Mass/Vol] 14.4 g/dL Normal 12.0-15.0 [facility] Comment on above: Performed By: #### L 506.1001, L500.4050, L100.0100, L500.4100, L501.9520 #### [facility] [address] [place], [address] IG% 0.400 Normal 0.0-0.9 [facility] Comment on above: Result Comment: IG% - Immature Granulocytes (promyelocytes, myelocytes and metamyelocytes) > 1% indicates that a LEFT SHIFT is Present. Performed By: #### L 506.1001, L500.4050, L100.0100, L500.4100, L501.9520 #### [facility] [address] [place], [address] Lymphocytes/100 WBC (Bld) 22.6 % Normal 19-41 [facility] Comment on above: Performed By: #### L 506.1001, L500.4050, L100.0100, L500.4100, L501.9520 #### [facility] [address] [place], [address] MCH (RBC) [Entitic mass] 31.5 pg Normal 27.0-32.0 [facility] Comment on above: Performed By: #### L 506.1001, L500.4050, L100.0100, L500.4100, L501.9520 #### [facility] [address] [place], [address] MCHC (RBC) [Mass/Vol] 34.5 g/dL Normal 32-36 [facility] Comment on above: Performed By: #### L 506.1001, L500.4050, L100.0100, L500.4100, L501.9520 #### [facility] [address] [place], [address] MCV (RBC) [Entitic vol] 91.2 fL Normal 81-99 [facility] Comment on above: Performed By: #### L 506.1001, L500.4050, L100.0100, L500.4100, L501.9520 #### [facility] [address] [place], [address] Monocytes/100 WBC (Bld) 8.1 % Normal 0-10 [facility] Comment on above: Performed By: #### L 506.1001, L500.4050, L100.0100, L500.4100, L501.9520 #### [facility] [address] [place], [address] Neutrophils/100 WBC (Bld) 66.1 % Normal 47-70 [facility] Comment on above: Performed By: #### L 506.1001, L500.4050, L100.0100, L500.4100, L501.9520 #### [facility] [address] [place], [address] Nucleated RBC (Bld) [#/Vol] 0 10*3/uL Normal 0-5 [facility] Comment on above: Performed By: #### L 506.1001, L500.4050, L100.0100, L500.4100, L501.9520 #### [facility] [address] [place], [address] Platelet mean volume (Bld) [Entitic vol] 9.9 fL Normal 6.2-12.0 [facility] Comment on above: Performed By: #### L 506.1001, L500.4050, L100.0100, L500.4100, L501.9520 #### [facility] [address] [place], [address] Platelets (Bld) [#/Vol] 236 10*3/uL Normal 150-450 [facility] Comment on above: Performed By: #### L 506.1001, L500.4050, L100.0100, L500.4100, L501.9520 #### [facility] [address] [place], [address] RBC (Bld) [#/Vol] 4.57 10*6/uL Normal 4.2-5.4 [facility] Comment on above: Performed By: #### L 506.1001, L500.4050, L100.0100, L500.4100, L501.9520 #### [facility] [address] [place], [address] RDW SD 40.6 fl Normal 35.1-43.9 [facility] Comment on above: Performed By: #### L 506.1001, L500.4050, L100.0100, L500.4100, L501.9520 #### [facility] [address] [place], [place], [id number] WBC (Bld) [#/Vol] 5.0 10*3/uL Normal 4.4-11.0 [facility] Comment on above: Performed By: #### L 506.1001, L500.4050, L100.0100, L500.4100, L501.9520 #### [facility] [address] [place], [address] Calculated very low density lipoprotein (VLDL) cholesterol measurementOrdered By: Yoly Snowden on 01-29-2025 Calculated very low density lipoprotein (VLDL) cholesterol measurement 21 mg/dL [facility] VLDL Cholesterol 21 mg/dL - [facility] Carbon dioxide, total [Moles /volume] in Central venous bloodOrdered By: Yoly Snowden on 01-29-2025 CO2 [Moles/Vol] 23.7 mmol/L 21.0-32.0 [facility] Chloride assayOrdered By: Kip Snowden on 01-29-2025 Chloride [Moles/Vol] 102 mmol/L 98-108 [facility] Comprehensive Metabolic Prof ilon 01-29-2025 Albumin [Mass/Vol] 4.3 g/dL Normal 3.4-4.8 [facility] Comment on above: Performed By: #### L 506.1001, L500.4050, L100.0100, L500.4100, L501.9520 #### [facility] [address] [place], [place], [id number] Albumin/Globulin [Mass ratio] 1.4 {ratio} Normal 0.9-2.4 [facility] Comment on above: Performed By: #### L 506.1001, L500.4050, L100.0100, L500.4100, L501.9520 #### [facility] [address] [place], [address] ALK PHOS 89 U/L Normal 35-104 [facility] Comment on above: Performed By: #### L 506.1001, L500.4050, L100.0100, L500.4100, L501.9520 #### [facility] [address] [place], [address] ALT [Catalytic activity/Vol] 35 U/L Normal <=34 [facility] Comment on above: Performed By: #### L 506.1001, L500.4050, L100.0100, L500.4100, L501.9520 #### [facility] [address] [place], [address] AST [Catalytic activity/Vol] 28 U/L Normal <=31 [facility] Comment on above: Performed By: #### L 506.1001, L500.4050, L100.0100, L500.4100, L501.9520 #### [facility] [address] [place], [address] Bilirubin [Mass/Vol] 0.47 mg/dL Normal 0.00-1.30 [facility] Comment on above: Performed By: #### L 506.1001, L500.4050, L100.0100, L500.4100, L501.9520 #### [facility] [address] [place], [address] BUN/CRE 17.4 RATIO Normal 10-20 [facility] Comment on above: Performed By: #### L 506.1001, L500.4050, L100.0100, L500.4100, L501.9520 #### [facility] [address] [place], [address] Calcium [Mass/Vol] 9.7 mg/dL Normal 7.6-11.0 [facility] Comment on above: Performed By: #### L 506.1001, L500.4050, L100.0100, L500.4100, L501.9520 #### [facility] [address] [place], [address] Chloride [Moles/Vol] 102 mmol/L Normal 98-108 [facility] Comment on above: Performed By: #### L 506.1001, L500.4050, L100.0100, L500.4100, L501.9520 #### [facility] [address] [place], [address] CO2 [Moles/Vol] 23.7 mmol/L Normal 21.0-32.0 [facility] Comment on above: Performed By: #### L 506.1001, L500.4050, L100.0100, L500.4100, L501.9520 #### [facility] [address] [place], [address] Creatinine [Mass/Vol] 0.96 mg/dL Normal 0.70-1.20 [facility] Comment on above: Performed By: #### L 506.1001, L500.4050, L100.0100, L500.4100, L501.9520 #### [facility] [address] [place], [address] GAP 10 Normal 5-15 [facility] Comment on above: Performed By: #### L 506.1001, L500.4050, L100.0100, L500.4100, L501.9520 #### [facility] [address] [place], [address] GFR/1.73 sq M.predicted among non-blacks MDRD (S/P/Bld) [Vol rate/Area] 68 mL/min/{1.73_m2} Normal >60 [facility] Comment on above: Result Comment: mL/m in/1.73m2 CKD-EPI Creatinine Equation (2020) Performed By: #### L 506.1001, L500.4050, L100.0100, L500.4100, L501.9520 #### [facility] [address] [place], [address] Globulin (S) [Mass/Vol] 3.0 g/dL Normal 2.2-4.2 [facility] Comment on above: Performed By: #### L 506.1001, L500.4050, L100.0100, L500.4100, L501.9520 #### [facility] [address] [place], [address] Glucose [Mass/Vol] 90 mg/dL Normal 70-99 [facility] Comment on above: Performed By: #### L 506.1001, L500.4050, L100.0100, L500.4100, L501.9520 #### [facility] [address] [place], [address] Potassium [Moles/Vol] 4.1 mmol/L Normal 3.3-5.1 [facility] Comment on above: Performed By: #### L 506.1001, L500.4050, L100.0100, L500.4100, L501.9520 #### [facility] [address] [place], [address] Sodium [Moles/Vol] 136 mmol/L Normal 133-145 [facility] Comment on above: Performed By: #### L 506.1001, L500.4050, L100.0100, L500.4100, L501.9520 #### [facility] [address] [place], [address] T PROT 7.3 g/dL Normal 5.9-8.4 [facility] Comment on above: Performed By: #### L 506.1001, L500.4050, L100.0100, L500.4100, L501.9520 #### [facility] [address] [place], [address] Urea nitrogen [Mass/Vol] 17 mg/dL Normal 4-19 [facility] Comment on above: Performed By: #### L 506.1001, L500.4050, L100.0100, L500.4100, L501.9520 #### [facility] [address] [place], [address] Eosinophil percentageOrdered By: Yoly Snowden on 01-29-2025 Eosinophils/100 WBC (Bld) 1.8 % 0-5 [facility] Erythrocyte distribution wid th (RBC) [Ratio]Ordered By: Yoly Snowden on 01-29-2025 Erythrocyte distribution width (RBC) [Entitic vol] 40.6 fL 35.1-43.9 [facility] Erythrocyte distribution wid th ratioOrdered By: Yoly Snowden on 01-29-2025 Erythrocyte distribution width (RBC) [Ratio] 12.2 % 11.6-14.6 [facility] Erythrocyte distribution wid th standard deviationOrdered By: eclestinotatitlekrhea Snowden on 01-29-2025 Erythrocyte distribution width (RBC) [Ratio] 40.6 fl 35.1-43.9 [facility] GFR/1.73 sq M.predicted he g non-blacks MDRD (S/P/Bld) [Vol rate/Area]Ordered By: Yoly Snowden on 01-29-2025 Estimated GFR (MDRD) Non-Af Amer 68 >60 [facility] Comment on above: mL/min/1.73m2 CKD-EP I Creatinine Equation (2020) Glomerular filtration rate ( GFR) estimation/1.73 sq m using serum, plasma, or whole bOrdered By: Yoly Snowden on 01-29-2025 GFR/1.73 sq M.predicted among non-blacks MDRD (S/P/Bld) [Vol rate/Area] 68 mL/min/{1.73_m2} >60 [facility] Comment on above: mL/min/1.73m2 CKD-EP I Creatinine Equation (2020) Hematocrit Auto (Bld) [Volum e fraction]Ordered By: Yoly Snowden on 01-29-2025 Hematocrit (Bld) [Volume fraction] 41.7 % 37-47 [facility] Hemoglobin measurementOrdere d By: Yoly Snowden on 01-29-2025 Hemoglobin (Bld) [Mass/Vol] 14.4 g/dL 12.0-15.0 [facility] Immature granulocytes/100 WB C Auto (Bld)Ordered By: Yoly Snowden on 01-29-2025 Immature granulocytes/100 WBC (Bld) 0.400 % 0.0-0.9 [facility] Comment on above: IG% - Immature Granu locytes (promyelocytes, myelocytes and metamyelocytes) > 1% indicates that a LEFT SHIFT is Present. Internal Medicine Office Vis itochristal 01-29-2025 Internal Medicine Office Visit [facility] [place] [address] [place] [address] OFFICE VISIT Date of Service: 01/29/25 MR#: [id number] Acct: [id number] Name: DONNY LAWTON Rep #: [id number] : 1965 Provider: Dr. Yoly simms MD Age/Sex: 59/F Location: [facility] [place] Status: Signed Intake Vital Signs 01/27/24 13:53 03/14/24 16:16 01/29/25 11:02 Height 5 ft 3 in 5 ft 3 in 5 ft 3 in Weight: 162 lb BMI 28.7 BP 112/74 Blood Pressure Location Lt brachial Position Sitting Respiration 18 Pulse 90 Pulse Source Monitor Temp 97.8 F Temp Source Temporal Pulse Oximetry (%) 99 Oxygen Delivery Method room air Intake Visit Reasons: 1 Y FU Chief Complaint: 1 Y FU Is patient in pain?: No Allergies No Known Allergies Allergy (Verified 01/29/25 11:03) Medications ???Medication ???Instructions ???Recorded ???Confirmed ???Type ascorbate calcium (vitamin C) 500 500 mg PO DAILY 01/25/23 01/29/25 History mg tablet calcium carbonate (Calcium 600) 600 mg PO DAILY 01/25/23 01/29/25 History fish oil 400 mg-flaxseed 400 cap PO 01/25/23 01/29/25 History mg-prim,blk social worker assistant,borag oils 200 mg capsule (Fish, Flax and Borage Oil ([place])) magnesium oxide 400 mg PO DAILY 01/25/23 01/29/25 History multivitamin 1 tab PO DAILY 01/25/23 01/29/25 H istory fluoxetine 40 mg capsule (Prozac) 40 mg PO DAILY #90 caps 01/27/24 01/29/25 Rx gabapentin 300 mg capsule 300 mg PO BID #180 caps 01/27/24 0 01/29/25 Rx levothyroxine 100 mcg tablet 100 mcg PO .mon, wed, fri #90 tabs 01/27/24 01/29/25 Rx alendronate 35 mg tablet 35 mg PO QWEEK #14 tabs 03/01/24 0 01/29/25 Rx atorvastatin 20 mg tablet 20 mg PO DAILY #90 tabs 07/10/24 0 01/29/25 Rx oxybutynin chloride 5 mg See Rx Instructions .Route 4 01/29/25 Rx tablet,extended release 24 hr .COMPLEX #90 tabs levothyroxine 75 mcg tablet 75 mcg PO SUTUTHSA THYROID #90 tab s 10/19/24 01/29/25 Rx (Synthroid) cholecalciferol (vitamin D3) 50 50 mcg PO .3x/wk 01/29/25 01/29/25 History mcg (2,000 unit) capsule Have you fallen in the past year?: No PFSH Medical History (Updated 01/29/25 @ 12:[address] Yoly Snowden MD) Toe pain, right Abnormal kidney function Elevated liver enzymes Flu vaccine need Family history of osteoporosis Osteopenia with high risk of fracture Acute kidney injury Routine health maintenance Post-menopausal Sinus headache Hypothyroidism GERD (gastroesophageal reflux disease) Neuropathy Hyperlipidemia Surgical History History of total vaginal hysterectomy (TVH) ( 01/21/18) Family History Mother Hypertension Heart disease Father CVA (cerebral vascular accident) Social History Smoking Status: Never smoker alcohol intake: never substance use type: does not use caffeine: No what type of physical activity do you participate in: walking, bicycling and weight training frequency: 3-4 times per week seatbelt use: always do you feel safe at home: Yes additional social history: - [place] 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 HPI HPI Chief Complaint: 1 Y FU Details: DONNY LAWTON, is a 59 F who presents to the office today for her yearly visit. Also has some concerns. She reports pain in her right second toe which has been ongoing for a few months. States that her second toe specifically brushes against her shoes and hurts. No significant rest pain. Has not been seen by podiatry. History of abnormal kidney function. Has concerns about this. She remembers her mother having some concerns with her kidneys as well but was never seen by a slot machine key person or had dialysis. This was an older age. History of hypothyroidism on levothyroxine. No heat or cold intolerance. Taking medication consistently. Also history of osteopenia with high fracture risk on Fosamax. Tolerating medication well and last bone density scan did show some improvement. Has been taking vitamin D 3 times weekly due to high normal readings. Other chronic medical conditions are stable. Follows up with [facility]. [facility] Constitutional: No body ache, chills, excessive sweating, fatigue, fever(s), frequent falls, headache(s), snoring, weight change, sleep problems, abnormal sleep pattern or change in appetite Eyes Eyes: No blurry vision, change in vision, bulging eyes, floaters, eye pain or Light sensitivity ENT ENT: No abnormal hearing, ear or mastoid pain, tinnitus, balance problems, nosebleed/epistaxi s, nasal congestion, headache(s), neck pain or sore throat Resp Respiratory: No cough, excessive phlegm production, pain on inspiration, shortness of breath, snor (more content not included)... Normal [facility] LDL calc ser/plasOrdered By: Yoly Snowden on 01-29-2025 Cholesterol in LDL [Mass/Vol] 91 mg/dL [facility] Comment on above: Uzmhftgume=367-518 m g/dL & Higher Qvth=207 mg/dL or greater LDL Cholesterol, Calculated 91 mg/dL [facility] Comment on above: Zcdmqbpftv=594-331 m g/dL & Higher Mfaa=586 mg/dL or greater Laboratory - Chemistry and C hemistry - challengeOrdered By: Yoly Snowden on 01-29-2025 AST [Catalytic activity/Vol] 28 U/L <32 [facility] Lipid Profileon 01-29-2025 CHOL:HDL 2.92 Normal [facility] Comment on above: Performed By: #### L 506.1001, L500.4050, L100.0100, L500.4100, L501.9520 #### [facility] [address] [place], [address] Cholesterol [Mass/Vol] 170 mg/dL Normal <=200 [facility] Comment on above: Result Comment: Chol esterol level, Desirable <200 mg/dL Borderline high cholesterol 200-239 mg/dL High cholesterol >=240 mg/dL Recommendations of the NCEP Adult Treatment Panel for the following risk-cutoff thresholds for the [place] population. Performed By: #### L 506.1001, L500.4050, L100.0100, L500.4100, L501.9520 #### [facility] [address] [place], [address] Cholesterol in HDL [Mass/Vol] 58 mg/dL Normal [facility] Comment on above: Result Comment: Toya onal Cholesterol Education Program (NCEP) guidelines: <40 mg/dL: Low HDL-cholesterol (major risk factor for CHD) >= 60 mg/dL: High HDL-cholesterol (negative risk factor for CHD) HDL-cholesterol is affected by a number of factors, e.g. smoking, exercise, hormones, sex and age. Performed By: #### L 506.1001, L500.4050, L100.0100, L500.4100, L501.9520 #### [facility] [address] [place], [address] Cholesterol in LDL [Mass/Vol] 91 mg/dL Normal [facility] Comment on above: Result Comment: Bord payxxq=044-035 mg/dL Higher Ystq=957 mg/dL or greater Performed By: #### L 506.1001, L500.4050, L100.0100, L500.4100, L501.9520 #### [facility] [address] [place], [address] Cholesterol in VLDL [Mass/Vol] 21 mg/dL Normal 5-40 [facility] Comment on above: Performed By: #### L 506.1001, L500.4050, L100.0100, L500.4100, L501.9520 #### [facility] [address] [place], [address] Triglyceride [Mass/Vol] 105 mg/dL Normal [facility] Comment on above: Result Comment: The drugs N-Acetylcysteine and Metamizole may falsely depress this assay. Normal range: <150 mg/dL Borderline High: 150-199 mg/dL High: 200-499 mg/dL Very High: >500 mg/dL Performed By: #### L 506.1001, L500.4050, L100.0100, L500.4100, L501.9520 #### [facility] [address] [place], [address] Lymphocytes Auto (Unsp spec) [#/Vol]Ordered By: Yoly Snowden on 01-29-2025 Lymphocytes (Bld) [#/Vol] 1.14 10*3/uL 0.83-4.51 [facility] Lymphocytes/100 WBC Auto (Un sp spec)Ordered By: Yoly Snowden on 01-29-2025 Lymphocytes/100 WBC (Bld) 22.6 % 19-41 [facility] MCV (mean corpuscular volume ) determinationOrdered By: Yoly Snowden on 01-29-2025 MCV (RBC) [Entitic vol] 91.2 fL 81-99 [facility] Mean corpuscular hemoglobin (MCH) determinationOrdered By: Yoly Snowden on 01-29-2025 MCH (RBC) [Entitic mass] 31.5 pg 27.0-32.0 [facility] Mean corpuscular hemoglobin concentration (MCHC) determinationOrdered By: Yoly Rogeliovirginiajayden on 01-29-2025 MCHC (RBC) [Mass/Vol] 34.5 g/dL 32-36 [facility] Mean platelet volume determi nationOrdered By: Yoly Rogeliovirginiajayden on 01-29-2025 Platelet mean volume (Bld) [Entitic vol] 9.9 fL 6.2-12.0 [facility] Monocyte percentageOrdered B y: Yoly Rogeliocristian on 01-29-2025 Monocytes/100 WBC (Bld) 8.1 % 0-10 [facility] Neutrophil percentageOrdered By: Yoly Rogeliovirginiajayden on 01-29-2025 Neutrophils/100 WBC (Bld) 66.1 % 47-70 [facility] Nucleated red blood cell per centageOrdered By: Yoly Rogeliovirginiajayden on 01-29-2025 Nucleated RBC/100 WBC (Bld) [Ratio] 0 % 0-5 [facility] Platelet countOrdered By: Kip cesar Rogeliocristian on 01-29-2025 Platelets (Bld) [#/Vol] 236 10*3/uL 150-450 [facility] [facility] Pot[facility] (Unsp spec) [Mass/ Vol]Ordered By: Brookecristianorhea Mercadovirginiajayden on 01-29-2025 Potassium [Moles/Vol] 4.1 mmol/L 3.3-5.1 [facility] Potassium measurement (mass/ volume)Ordered By: Yoly Mercadovirginiajayden on 01-29-2025 Potassium (Unsp spec) [Mass/Vol] 4.1 mmol/L 3.3-5.1 [facility] RBC Auto (Bld) [#/Vol]Ordere d By: Chrisrhea Mercadovirginiajayden on 01-29-2025 RBC (Bld) [#/Vol] 4.57 10*6/uL 4.2-5.4 [facility] Screening total cholesterol/ high density lipoprotein (HDL) cholesterol ratioOrdered By: Yoly Snowden on 01-29-2025 Cholesterol.total/Choles terol in HDL [Mass ratio] 2.92 {ratio} [facility] Serum creatinine measurement (mass/volume)Ordered By: Yoly Snowden on 01-29-2025 Creatinine [Mass/Vol] 0.96 mg/dL 0.70-1.20 [facility] Serum globulin measurementOr dered By: Yoly Snowden on 01-29-2025 Globulin (S) [Mass/Vol] 3.0 g/dL 2.2-4.2 [facility] Serum glucose measurement (m ass/volume)Ordered By: Yoly Snowden on 01-29-2025 Glucose [Mass/Vol] 90 mg/dL 70-99 [facility] Serum or plasma alanine stoddard otransferase (ALT) measurementOrdered By: Yoly Snowden on 01-29-2025 ALT [Catalytic activity/Vol] 35 U/L <35 [facility] Serum or plasma albumin ko urement (mass/volume)Ordered By: Yoly Snowden on 01-29-2025 Albumin [Mass/Vol] 4.3 g/dL 3.4-4.8 [facility] Serum or plasma albumin/glob ulin mass ratioOrdered By: Yoly Snowden 01-29-2025 Albumin/Globulin [Mass ratio] 1.4 {ratio} 0.9-2.4 [facility] Serum or plasma alkaline shameka sphatase measurementOrdered By: Yoly Snowden 01-29-2025 ALP [Catalytic activity/Vol] 89 U/L 35-104 [facility] Serum or plasma calcium ko urement (mass/volume)Ordered By: Yoly Snowden 01-29-2025 Calcium [Mass/Vol] 9.7 mg/dL 7.6-11.0 [facility] Serum or plasma cholesterol in HDL measurement (mass/volume)Ordered By: Yoly Snowden on 01-29-2025 Cholesterol in HDL [Mass/Vol] 58 mg/dL >40 [facility] Comment on above: National Cholesterol Education Program (NCEP) guidelines:<40 mg/dL: Low HDL-cholesterol (major risk factor for CHD)>= 60 mg/dL: High HDL-cholesterol (negative risk factor for CHD)HDL-cholesterol is affected by a number of factors, e.g. smoking, exercise, hormones, sex and age. Serum or plasma cholesterol measurement (mass/volume)Ordered By: Yoly Snowden on 01-29-2025 Cholesterol [Mass/Vol] 170 mg/dL <201 [facility] Comment on above: Cholesterol level, D esirable <200 mg/dLBorderline high cholesterol 200-239 mg/dLHigh cholesterol >=240 mg/dLRecommendations of the NCEP Adult Treatment Panel for the following risk-cutoff thresholds for the [place] population. Serum or plasma urea nitroge n measurement (mass/volume)Ordered By: Yoly Snowden on 01-29-2025 Urea nitrogen [Mass/Vol] 17 mg/dL 4-19 [facility] Sodium levelOrdered By: Brooke Snowden on 01-29-2025 Sodium [Moles/Vol] 136 mmol/L 133-145 [facility] TSH DL <= 0.005 mIU/L QnOrde red By: Yoly Snowden on 01-29-2025 Thyroid Stimulating Hormone (TSH) 1.650 uIU/mL 0.300-4.200 [facility] TSH Qn 1.650 uIU/mL 0.300-4.200 [facility] Thyroid Stim Hormone (TSH)on 01-29-2025 TSH 1.650 uIU/mL Normal 0.300-4.200 [facility] Comment on above: Performed By: #### L 506.1001, L500.4050, L100.0100, L500.4100, L501.9520 #### [facility] Laboratory [address] [place], [place], [id number] Total proteinOrdered By: Geovanni Snowden on 01-29-2025 Protein [Mass/Vol] 7.3 g/dL 5.9-8.4 [facility] Triglycerides measurementOrd ered By: Yoly Snowden on 01-29-2025 Triglyceride [Mass/Vol] 105 mg/dL <199 [facility] Comment on above: The drugs N-Acetylcy steine and Metamizole may falsely depress this assay. Normal range: <150 mg/dLBorderline High: 150-199 mg/dLHigh: 200-499 mg/dLVery High: >500 mg/dL Vitamin D, 25-hydroxyOrdered By: Yoly Snowden on 01-29-2025 Vitamin D 25-Hydroxy 84.4 ng/mL 30-100 [facility] Comment on above: Vitamin D StatusDefi ciency: <20 ng/mL (50nmol/L)Insufficiency: 20-30 ng/mL (50-75 nmol/L)Sufficiency: 30-100 ng/mL (75-250 nmol/L)Toxicity: >100 ng/mL (>250 nmol/L) Vitamin D,25 Hydroxyon 01-29 Vitamin D 25-OH 84.4 ng/mL Normal 30-100 [facility] Comment on above: Result Comment: [place] min D Status Deficiency: <20 ng/mL (50nmol/L) Insufficiency: 20-30 ng/mL (50-75 nmol/L) Sufficiency: 30-100 ng/mL (75-250 nmol/L) Toxicity: >100 ng/mL (>250 nmol/L) Performed By: #### L 506.1001, L500.4050, L100.0100, L500.4100, L501.9520 #### [facility] [address] [place], [address] White blood cell (WBC) count Ordered By: Yoly Snowden on 01-29-2025 WBC (Bld) [#/Vol] 5.0 10*3/uL 4.4-11.0 [facility] SCRN MAMM (CAD)W/DIXIE Burger n 09-29-2024 SCRN MAMM (CAD)W/DIXIE [facility]OS [facility] [address] [place], [place] [id number] SCRN MAMM (CAD)W/DIXIE PALACIOS MR#: [id number] Acct: [id number] Name: LEIGHANNDONNYARTUR GUTIÉRREZ Rep #: [id number] : 1965 F 58 From: Chris jaimes MD PCP: Dr. Yoly Snowden MD Status: [facility] Study: SCRN MAMM (CAD)W/DIXIE BILAT Date of Exam: 09/17 01/08 Exam# [id number] Ordering Dr: Sharlene Hill [id number] MAMMOGRAPHY - BILATERAL SCREENING REASON FOR EXAM: Female, 58 years old. Routine annual screening examination. PERTINENT HISTORY: Non-contributory. TECHNIQUE: Digital bilateral breast dixie (3D mammographic acquisition) in the CC and MLO projections. 2-D mediolateral oblique (MLO) and craniocaudad (CC) views of both breasts were obtained. CAD: Full Field Digital Mammography with Computer Added Detection was performed. COMPARISON: Comparison is made with prior study May 20, 2023 and May 18, 2022. FINDINGS: Breast Composition: There are scattered areas of fibroglandular density. There are no dominant masses or suspicious calcifications. Stable small benign-appearing bilateral axillary lymph nodes. No other significant abnormalities are identified. There has been no significant change since the prior study. BI/SCRN MAMM (CAD)W/DIXIE BILAT IMPRESSION: Stable bilateral screening mammogram. Yearly follow-up mammogram recommended. (A) ASSESSMENT CATEGORY: BIRADS Category 2: Benign. A letter regarding these results will be sent to the patient by the facility within 30 days. Approximately 10% of breast cancers are not detected by mammography. A normal mammogram should not delay biopsy of a clinically suspicious abnormality. [id number] Electronically Signed: Chris Puri MD at 14:52 EST , CC: Dr. Yoly Snowden MD; Dr. Sharlene Hill MD Pad Cutter: Signed Normal [facility] Absolute lymphocyte countOrd ered By: Yoly Snowden on 01-27-2024 Lymphocytes Auto (Unsp spec) [#/Vol] 1.01 10*3/uL 0.83-4.51 [facility] Automated lymphocyte count a s percentage of total leukocytesOrdered By: Yoly Snowden on 01-27-2024 Lymphocytes/100 WBC Auto (Unsp spec) 19.2 % 19-41 [facility] Basophil percentageOrdered B y: Yoly Rogeliocristian on 01-27-2024 Basophils/100 WBC (Bld) 1.1 % 0-1 [facility] Bilirubin [Mass/Vol] 0.60 mg/dL 0.20-1.00 [facility] Comment on above: For patients on eltr ombopag therapy, use of [facility] TBIL is not recommended. Chloride [Moles/Vol] 102 mmol/L 98-107 [facility] Cholesterol [Mass/Vol] 171 mg/dL <200 [facility] Comment on above: <200 mg/dL Desirable 200-240 mg/dL Borderline >240 mg/dL High Risk Eosinophils/100 WBC (Bld) 1.7 % 0-5 [facility] Glucose [Mass/Vol] 102 mg/dL 74-106 [facility] Comment on above: Fasting Glucose resu lt from 100 to 125 mg/dL suggests IMPAIRED HOMEOSTASIS per A.D.A. criteria. Hemoglobin (Bld) [Mass/Vol] 13.9 g/dL 12.0-15.0 [facility] Monocytes/100 WBC (Bld) 7.2 % 0-10 [facility] Neutrophils (Bld) [#/Vol] 3.7 10*3/uL 2.0-7.7 [facility] Neutrophils/100 WBC (Bld) 70.4 % 47-70 [facility] Potassium [Moles/Vol] 3.6 mmol/L 3.5-5.1 [facility] Protein [Mass/Vol] 7.2 g/dL 6.4-8.2 [facility] Sodium [Moles/Vol] 135 mmol/L 136-145 [facility] Triglyceride [Mass/Vol] 115 mg/dL <199 [facility] Comment on above: The drugs N-Acetylcy steine and Metamizole may falsely depress this assay.Serum Triglycerides Reference Interval Normal <150 mg/dL Borderline high 150 - 199 mg/dL High 200 - 499 mg/dL Very High > or = 500 mg/dL WBC (Bld) [#/Vol] 5.3 10*3/uL 4.4-11.0 [facility] Determination of erythrocyte mean corpuscular volume (MCV)Ordered By: Brooketatitlekrhea Snowden on 01-27-2024 MCV (RBC) [Entitic vol] 91.9 fL 81-99 [facility] Erythrocyte distribution wid th ratioOrdered By: [facility] Rogeliojayden on 01-27-2024 Erythrocyte distribution width (RBC) [Ratio] 12.4 % 11.6-14.6 [facility] Erythrocyte distribution wid th standard deviationOrdered By: [facility] Rogeliojayden on 01-27-2024 Erythrocyte distribution width (RBC) [Entitic vol] 41.7 fL 35.1-43.9 [facility] Hematocrit Auto (Bld) [Volum e fraction]Ordered By: Paladin Healthcarejayden on 01-27-2024 Hematocrit (Bld) [Volume fraction] 41.8 % 37-47 [facility] Immature granulocytes/100 WB C Auto (Bld)Ordered By: [facility] Rogeliojayden on 01-27-2024 Immature granulocytes/100 WBC (Bld) 0.400 % 0.0-0.9 [facility] Comment on above: IG% - Immature Granu locytes (promyelocytes, myelocytes and metamyelocytes) > 1% indicates that a LEFT SHIFT is Present. Laboratory - Chemistry and C hemistry - challengeOrdered By: [facility] Forsythrhea Mercadojayden on 01-27-2024 Albumin/Globulin [Mass ratio] 1.1 {ratio} 0.9-2.4 [facility] ALP [Catalytic activity/Vol] 81 U/L 45-117 [facility] ALT [Catalytic activity/Vol] 40 U/L 13-56 [facility] Cholesterol in HDL [Mass/Vol] 57 mg/dL >40 [facility] Comment on above: The drugs N-Acetylcy steine and Metamizole may falsely depress this assay. Reference Range HDL <40 mg/dL Low HDL Cholesterol HDL >or= 60 mg/dL High HDL Cholesterol Cholesterol in LDL [Mass/Vol] 91 mg/dL 0-130 [facility] CO2 [Moles/Vol] 29.0 mmol/L 21.0-32.0 [facility] Globulin (S) [Mass/Vol] 3.5 g/dL 2.2-4.2 [facility] Urea nitrogen/Creatinine [Mass ratio] 14.0 mg/mg 10-20 [facility] Laboratory - Hematology and Cell countsOrdered By: Yoly Snowden on 01-27-2024 MCH (RBC) [Entitic mass] 30.5 pg 27.0-32.0 [facility] MCHC (RBC) [Mass/Vol] 33.3 g/dL 32-36 [facility] Nucleated RBC/100 WBC (Bld) [Ratio] 0 % 0-5 [facility] Platelet mean volume (Bld) [Entitic vol] 9.9 fL 6.2-12.0 [facility] Platelets (Bld) [#/Vol] 250 10*3/uL 150-450 [facility] No Panel InformationOrdered By: Yoly Snowden on 01-27-2024 Estimated GFR (MDRD) Amer 67 mL/min >60 [facility] Comment on above: GFR Calc Estimated GFR (MDRD) Non-Af Amer 56 mL/min >60 [facility] Comment on above: Non- GFR Calc Vitamin D 25-Hydroxy 103.5 ng/mL [facility] Comment on above: Vitamin D 25(OH) Sta tus Range Deficiency <20 ng/mL (50nmol/L) Insufficiency 20 - 30 ng/mL (50 - 75 nmol/L) Sufficiency 30 - 100 ng/mL (75 - 250 nmol/L) Toxicity >100 ng/mL (>250 nmol/L)Evidence suggests that patients undergoing fluorescein dye angiography can retain small amounts of fluorescein in the body for up to 48 to 72 hours post-treatment. In the cases of patients with renal insufficiency, retention could be much longer. Samples containing fluorescein can produce falsely elevated values when tested with the [employer] Cent[employer] Vitamin D assay. With fluorescein interference, observed Vitamin D values can be as high as >150 ng/mL (>375 nmol/L). Samples should be resubmitted post fluorescein clearance to ensure there is no interference with Vitamin D test results. VLDL Cholesterol 23 mg/dL 5-40 [facility] RBC Auto (Bld) [#/Vol]Ordere d By: Yoly Snowden on 01-27-2024 RBC (Bld) [#/Vol] 4.55 10*6/uL 4.2-5.4 [facility] Serum or plasma calcium ko urement (mass/volume)Ordered By: Yoly Snowden on 01-27-2024 Calcium [Mass/Vol] 9.9 mg/dL 8.5-10.1 [facility] Serum or plasma creatinine m easurement (mass/volume)Ordered By: Yoly Snowden on 01-27-2024 Creatinine [Mass/Vol] 1.07 mg/dL 0.55-1.02 [facility] Comment on above: The validity of the calculated GFR & GFRAA in patients over 70 years has not been determined. Clinical correlation is essential. Serum or plasma thyroid stim ulating hormone (TSH) measurement (units/volume)Ordered By: Yoly Snowden on 01-27-2024 TSH Qn 0.38 uIU/mL 0.358-3.74 [facility] Serum or plasma urea nitroge n measurement (mass/volume)Ordered By: Yoly Snowden on 01-27-2024 Urea nitrogen [Mass/Vol] 15 mg/dL 7-18 [facility] Thin prep Papanicolaou smear with manual screeningOrdered By: Yoly Snowden on 01-27-2024 Thin prep Papanicolaou smear with manual screening 3.7 g/dL 3.2-5.0 [facility] Thin prep Papanicolaou smear with manual screening 28 U/L 15-37 [facility] Thin prep Papanicolaou smear with manual screening 4 5-15 [facility] Absolute lymphocyte countOrd ered By: Yoly Snowden on 01-25-2023 Lymphocytes Auto (Unsp spec) [#/Vol] 0.98 10*3/uL 0.83-4.51 [facility] Basophil percentageOrdered B y: Yoly Snowden on 01-25-2023 Basophils/100 WBC (Bld) 1.2 % 0-1 [facility] Bilirubin [Mass/Vol] 0.20 mg/dL 0.20-1.00 [facility] Comment on above: For patients on eltr ombopag therapy, use of [facility] TBIL is not recommended. Chloride [Moles/Vol] 108 mmol/L 98-107 [facility] Cholesterol [Mass/Vol] 172 mg/dL <200 [facility] Comment on above: <200 mg/dL Desirable 200-240 mg/dL Borderline >240 mg/dL High Risk Eosinophils/100 WBC (Bld) 3.4 % 0-5 [facility] Glucose [Mass/Vol] 106 mg/dL 74-106 [facility] Comment on above: Fasting Glucose resu lt from 100 to 125 mg/dL suggests IMPAIRED HOMEOSTASIS per A.D.A. criteria. Neutrophils (Bld) [#/Vol] 2.6 10*3/uL 2.0-7.7 [facility] Neutrophils/100 WBC (Bld) 61.4 % 47-70 [facility] Potassium [Moles/Vol] 3.6 mmol/L 3.5-5.1 [facility] Protein [Mass/Vol] 7.2 g/dL 6.4-8.2 [facility] Sodium [Moles/Vol] 138 mmol/L 136-145 [facility] Triglyceride [Mass/Vol] 199 mg/dL <199 [facility] Comment on above: The drugs N-Acetylcy steine and Metamizole may falsely depress this assay.Serum Triglycerides Reference Interval Normal <150 mg/dL Borderline high 150 - 199 mg/dL High 200 - 499 mg/dL Very High > or = 500 mg/dL WBC (Bld) [#/Vol] 4.2 10*3/uL 4.4-11.0 [facility] Blood erythrocytes count (nu mber/volume)Ordered By: Yoly Snowden on 01-25-2023 RBC (Bld) [#/Vol] 4.73 10*6/uL 4.2-5.4 [facility] Blood hemoglobin measurement (mass/volume)Ordered By: Yoly Snowden on 01-25-2023 Hemoglobin (Bld) [Mass/Vol] 14.5 g/dL 12.0-15.0 [facility] Blood lymphocytes/100 leukoc ytesOrdered By: Yoly Snowden on 01-25-2023 Lymphocytes/100 WBC (Bld) 23.6 % 19-41 [facility] Blood monocytes/100 leukocyt esOrdered By: Yoly Snowden on 01-25-2023 Monocytes/100 WBC (Bld) 9.9 % 0-10 [facility] Blood platelet mean volumeOr dered By: Yoly Snwoden on 01-25-2023 Platelet mean volume (Bld) [Entitic vol] 10.0 fL 6.2-12.0 [facility] Determination of erythrocyte mean corpuscular volume (MCV)Ordered By: Yoly Snowden on 01-25-2023 MCV (RBC) [Entitic vol] 94.3 fL 81-99 [facility] Hematocrit Auto (Bld) [Volum e fraction]Ordered By: Yoly Snowden on 01-25-2023 Hematocrit (Bld) [Volume fraction] 44.6 % 37-47 [facility] Laboratory - Chemistry and C hemistry - challengeOrdered By: Yoly Snowden on 01-25-2023 ALP [Catalytic activity/Vol] 83 U/L 45-117 [facility] ALT [Catalytic activity/Vol] 46 U/L 13-56 [facility] CO2 [Moles/Vol] 26.0 mmol/L 21.0-32.0 [facility] Globulin (S) [Mass/Vol] 3.6 g/dL 2.2-4.2 [facility] Urea nitrogen/Creatinine [Mass ratio] 10.6 mg/mg 10-20 [facility] Laboratory - Hematology and Cell countsOrdered By: Yoly Snowden on 01-25-2023 Erythrocyte distribution width (RBC) [Entitic vol] 42.0 fL 35.1-43.9 [facility] Erythrocyte distribution width (RBC) [Ratio] 12.0 % 11.6-14.6 [facility] Immature granulocytes/100 WBC (Bld) 0.500 % 0.0-0.9 [facility] Comment on above: IG% - Immature Granu locytes (promyelocytes, myelocytes and metamyelocytes) > 1% indicates that a LEFT SHIFT is Present. MCH (RBC) [Entitic mass] 30.7 pg 27.0-32.0 [facility] Nucleated RBC/100 WBC (Bld) [Ratio] 0 % 0-5 [facility] MCHC Auto (RBC) [Mass/Vol]Or dered By: Yoly Snowden on 01-25-2023 MCHC (RBC) [Mass/Vol] 32.5 g/dL 32-36 [facility] No Panel InformationOrdered By: Yoly Snowden on 01-25-2023 Estimated GFR (MDRD) Amer 70 mL/min >60 [facility] Comment on above: GFR Calc Estimated GFR (MDRD) Non-Af Amer 58 mL/min >60 [facility] Comment on above: Non- GFR Calc Thyroid Stimulating Hormone (TSH) 1.85 uIU/mL 0.358-3.74 [facility] Vitamin D 25-Hydroxy 63.4 ng/mL [facility] Comment on above: Vitamin D 25(OH) Sta tus Range Deficiency <20 ng/mL (50nmol/L) Insufficiency 20 - 30 ng/mL (50 - 75 nmol/L) Sufficiency 30 - 100 ng/mL (75 - 250 nmol/L) Toxicity >100 ng/mL (>250 nmol/L) Platelets bldOrdered By: Geovanni Snowden on 01-25-2023 Platelets (Bld) [#/Vol] 239 10*3/uL 150-450 [facility] Serum or plasma albumin ko urement (mass/volume)Ordered By: Yoly Snowden on 01-25-2023 Albumin [Mass/Vol] 3.6 g/dL 3.2-5.0 [facility] Serum or plasma albumin/glob ulin mass ratioOrdered By: Yoly Snowden on 01-25-2023 Albumin/Globulin [Mass ratio] 1.0 {ratio} 0.9-2.4 [facility] Serum or plasma calcium ko urement (mass/volume)Ordered By: Yoly Snowden on 01-25-2023 Calcium [Mass/Vol] 9.1 mg/dL 8.5-10.1 [facility] Serum or plasma cholesterol in HDL measurement (mass/volume)Ordered By: Yoly Snowden on 01-25-2023 Cholesterol in HDL [Mass/Vol] 58 mg/dL >40 [facility] Comment on above: The drugs N-Acetylcy steine and Metamizole may falsely depress this assay. Reference Range HDL <40 mg/dL Low HDL Cholesterol HDL >or= 60 mg/dL High HDL Cholesterol Serum or plasma cholesterol in VLDL measurement (mass/volume)Ordered By: Yoly Snowden on 01-25-2023 Cholesterol in VLDL [Mass/Vol] 40 mg/dL 5-40 [facility] Serum or plasma creatinine m easurement (mass/volume)Ordered By: Yoly Snowden on 01-25-2023 Creatinine [Mass/Vol] 1.04 mg/dL 0.55-1.02 [facility] Comment on above: The validity of the calculated GFR & GFRAA in patients over 70 years has not been determined. Clinical correlation is essential. Serum or plasma low density lipoprotein (LDL) cholesterol measurement (mass/volume)Ordered By: Yoly Snowden on 01-25-2023 Cholesterol in LDL [Mass/Vol] 74 mg/dL 0-130 [facility] Serum or plasma urea nitroge n measurement (mass/volume)Ordered By: Yoly Snowden on 01-25-2023 Urea nitrogen [Mass/Vol] 11 mg/dL 7-18 [facility] Thin prep Papanicolaou smear with manual screeningOrdered By: Yoly Snowden on 01-25-2023 Thin prep Papanicolaou smear with manual screening 24 U/L 15-37 [facility] Thin prep Papanicolaou smear with manual screening 4 5-15 [facility] Basophil percentageon 2021 Bilirubin [Mass/Vol] 0.50 mg/dL 0.20-1.00 [facility] Work Phone: Comment on above: For patients on eltr ombopag therapy, use of [facility] TBIL is not recommended. Chloride [Moles/Vol] 105 mmol/L 98-107 [facility] Work Phone: Glucose [Mass/Vol] 90 mg/dL 74-106 [facility] Work Phone: Potassium [Moles/Vol] 3.9 mmol/L 3.5-5.1 [facility] Work [facility]: Protein [Mass/Vol] 7.3 g/dL 6.4-8.2 [facility] Work Phone: Sodium [Moles/Vol] 138 mmol/L 136-145 [facility] Work Phone: Laboratory - Chemistry and C hemistry - challengeon 03-03-2022 ALP [Catalytic activity/Vol] 75 U/L 45-117 [facility] Work Phone: ALT [Catalytic activity/Vol] 38 U/L 13-56 [facility] Work Phone: CO2 [Moles/Vol] 29.0 mmol/L 21.0-32.0 [facility] Work Phone: Globulin (S) [Mass/Vol] 3.6 g/dL 2.2-4.2 [facility] Work Phone: Urea nitrogen/Creatinine [Mass ratio] 11.5 mg/mg 10-20 [facility] Work Phone: No Panel Informationon 03-03 Estimated GFR (MDRD) Amer 77 mL/min >60 [facility] Work Phone: Comment on above: GFR Calc Estimated GFR (MDRD) Non-Af Amer 64 mL/min >60 [facility] Work Phone: Comment on above: Non- GFR Calc Thyroid Stimulating Hormone (TSH) 2.77 uIU/mL 0.358-3.74 [facility] Work Phone: Serum or plasma albumin ko urement (mass/volume)on 03-03-2022 Albumin [Mass/Vol] 3.7 g/dL 3.2-5.0 [facility] Work Phone: Serum or plasma albumin/glob ulin mass ratioon 03-03-2022 Albumin/Globulin [Mass ratio] 1.0 {ratio} 0.9-2.4 [facility] Work Phone: Serum or plasma calcium ko urement (mass/volume)on 03-03-2022 Calcium [Mass/Vol] 8.7 mg/dL 8.5-10.1 [facility] Work Phone: Serum or plasma creatinine m easurement (mass/volume)on 03-03-2022 Creatinine [Mass/Vol] 0.96 mg/dL 0.55-1.02 [facility] Work Phone: Comment on above: The validity of the calculated GFR & GFRAA in patients over 70 years has not been determined. Clinical correlation is essential. Serum or plasma urea nitroge n measurement (mass/volume)on 03-03-2022 Urea nitrogen [Mass/Vol] 11 mg/dL 7-18 [facility] Work Phone: Thin prep Papanicolaou smear with manual screeningon 03-03-2022 Thin prep Papanicolaou smear with manual screening 23 U/L 15-37 [facility] Work Phone: Thin prep Papanicolaou smear with manual screening 4 5-15 [facility] Work Phone: Absolute lymphocyte counton 01-26-2022 Lymphocytes Auto (Unsp spec) [#/Vol] 1.58 10*3/uL 0.83-4.51 [facility] Work Phone: Basophil percentageon 2021 Basophils/100 WBC (Bld) 1.1 % 0-1 [facility] Work Phone: Bilirubin [Mass/Vol] 0.40 mg/dL 0.20-1.00 [facility] Work Phone: Comment on above: For patients on eltr ombopag therapy, use of [facility] TBIL is not recommended. Chloride [Moles/Vol] 104 mmol/L 98-107 [facility] Work Phone: Cholesterol [Mass/Vol] 179 mg/dL <200 [facility] Work Phone: Comment on above: <200 mg/dL Desirable 200-240 mg/dL Borderline >240 mg/dL High Risk Eosinophils/100 WBC (Bld) 2.8 % 0-5 [facility] Work Phone: Glucose [Mass/Vol] 91 mg/dL 74-106 [facility] Work Phone: Neutrophils (Bld) [#/Vol] 3.2 10*3/uL 2.0-7.7 [facility] Work Phone: Neutrophils/100 WBC (Bld) 58.1 % 47-70 [facility] Work Phone: Potassium [Moles/Vol] 4.0 mmol/L 3.5-5.1 [facility] Work Phone: Protein [Mass/Vol] 7.3 g/dL 6.4-8.2 [facility] Work Phone: Sodium [Moles/Vol] 139 mmol/L 136-145 [facility] Work Phone: Triglyceride [Mass/Vol] 205 mg/dL [facility] Work Phone: Comment on above: The drugs N-Acetylcy steine and Metamizole may falsely depress this assay.Serum Triglycerides Reference Interval Normal <150 mg/dL Borderline high 150 - 199 mg/dL High 200 - 499 mg/dL Very High > or = 500 mg/dL WBC (Bld) [#/Vol] 5.4 10*3/uL 4.4-11.0 [facility] Work Phone: Blood erythrocytes count (nu mber/volume)on 01-26-2022 RBC (Bld) [#/Vol] 4.64 10*6/uL 4.2-5.4 [facility] Work [facility]: Blood hemoglobin measurement (mass/volume)on 01-26-2022 Hemoglobin (Bld) [Mass/Vol] 14.2 g/dL 12.0-15.0 [facility] Work Phone: Blood lymphocytes/100 leukoc yteson 01-26-2022 Lymphocytes/100 WBC (Bld) 29.2 % 19-41 [facility] Work Phone: Blood monocytes/100 leukocyt eson 01-26-2022 Monocytes/100 WBC (Bld) 8.1 % 0-10 [facility] Work Phone: Blood platelet mean volumeon 01-26-2022 Platelet mean volume (Bld) [Entitic vol] 10.0 fL 6.2-12.0 [facility] Work Phone: Determination of erythrocyte mean corpuscular volume (MCV)on 01-26-2022 MCV (RBC) [Entitic vol] 92.5 fL 81-99 [facility] Work Phone: Hematocrit Auto (Bld) [Volum e fraction]on 01-26-2022 Hematocrit (Bld) [Volume fraction] 42.9 % 37-47 [facility] Work Phone: Laboratory - Chemistry and C hemistry - challengeon 01-26-2022 ALP [Catalytic activity/Vol] 95 U/L 45-117 [facility] Work Phone: ALT [Catalytic activity/Vol] 103 U/L 13-56 [facility] Work Phone: CO2 [Moles/Vol] 31.0 mmol/L 21.0-32.0 [facility] Work Phone: Globulin (S) [Mass/Vol] 3.4 g/dL 2.2-4.2 [facility] Work Phone: Urea nitrogen/Creatinine [Mass ratio] 10.6 mg/mg 10-20 [facility] Work Phone: Laboratory - Hematology and Cell countson 01-26-2022 Erythrocyte distribution width (RBC) [Entitic vol] 42.5 fL 35.1-43.9 [facility] Work Phone: Erythrocyte distribution width (RBC) [Ratio] 12.4 % 11.6-14.6 [facility] Work Phone: Immature granulocytes/100 WBC (Bld) 0.700 % 0.0-0.9 [facility] Work Phone: Comment on above: IG% - Immature Granu locytes (promyelocytes, myelocytes and metamyelocytes) > 1% indicates that a LEFT SHIFT is Present. MCH (RBC) [Entitic mass] 30.6 pg 27.0-32.0 [facility] Work Phone: Nucleated RBC/100 WBC (Bld) [Ratio] 0 % 0-5 [facility] Work Phone: MCHC Auto (RBC) [Mass/Vol]on 01-26-2022 MCHC (RBC) [Mass/Vol] 33.1 g/dL 32-36 [facility] Work Phone: No Panel Informationon 01-26 Estimated GFR (MDRD) Amer 78 mL/min >60 [facility] Work Phone: Comment on above: GFR Calc Estimated GFR (MDRD) Non-Af Amer 65 mL/min >60 [facility] Work Phone: Comment on above: Non- GFR Calc Thyroid Stimulating Hormone (TSH) 4.25 uIU/mL 0.358-3.74 [facility] Work Phone: Platelets bldon 01-26-2022 Platelets (Bld) [#/Vol] 244 10*3/uL 150-450 [facility] Work Phone: Serum or plasma albumin ko urement (mass/volume)on 01-26-2022 Albumin [Mass/Vol] 3.9 g/dL 3.2-5.0 [facility] Work Phone: Serum or plasma albumin/glob ulin mass ratioon 01-26-2022 Albumin/Globulin [Mass ratio] 1.1 {ratio} 0.9-2.4 [facility] Work Phone: Serum or plasma calcium ko urement (mass/volume)on 01-26-2022 Calcium [Mass/Vol] 9.9 mg/dL 8.5-10.1 [facility] Work Phone: Serum or plasma cholesterol in HDL measurement (mass/volume)on 01-26-2022 Cholesterol in HDL [Mass/Vol] 58 mg/dL [facility] Work Phone: Comment on above: The drugs N-Acetylcy steine and Metamizole may falsely depress this assay. Reference Range HDL <40 mg/dL Low HDL Cholesterol HDL >or= 60 mg/dL High HDL Cholesterol Serum or plasma cholesterol in VLDL measurement (mass/volume)on 01-26-2022 Cholesterol in VLDL [Mass/Vol] 41 mg/dL 5-40 [facility] Work Phone: Serum or plasma creatinine m easurement (mass/volume)on 01-26-2022 Creatinine [Mass/Vol] 0.95 mg/dL 0.55-1.02 [facility] Work Phone: Comment on above: The validity of the calculated GFR & GFRAA in patients over 70 years has not been determined. Clinical correlation is essential. Serum or plasma low density lipoprotein (LDL) cholesterol measurement (mass/volume)on 01-26-2022 Cholesterol in LDL [Mass/Vol] 80 mg/dL 0-130 [facility] Work Phone: Serum or plasma urea nitroge n measurement (mass/volume)on 01-26-2022 Urea nitrogen [Mass/Vol] 10 mg/dL 7-18 [facility] Work Phone: Thin prep Papanicolaou smear with manual screeningon 01-26-2022 Thin prep Papanicolaou smear with manual screening 65 U/L 15-37 [facility] Work Phone: Thin prep Papanicolaou smear with manual screening 4 5-15 [facility] Work Phone: Office Visit: Annual examon 08-05-2017 Documentation of current medications (procedure) Done Invalid Interpretation Code [facility] Fall risk assessment No Invalid Interpretation Code [facility] Tobacco smoking status NHIS Never Invalid Interpretation Code [facility] Tobacco smoking status NHIS Never smoker Invalid Interpretation Code [facility] Tobacco use [facility] Never smoker Invalid Interpretation Code [facility] Lab Report: CBC W/Diff, Auto matedon 07-27-2017 Absolute Neut 3.0 X10 3/UL Invalid Interpretation Code 2.0-7.7 [facility] Work Phone: Basophils/100 WBC Auto (Bld) 1.2 % High 0-1 [facility] Work Phone: Eosinophils/100 WBC Auto (Bld) 1.5 % Invalid Interpretation Code 0-5 [facility] Work Phone: Erythrocyte distribution width Auto Ratio (RBC) 12.3 % Invalid Interpretation Code 11.6-14.6 [facility] Work Phone: Erythrocyte distribution width Auto Ratio (RBC) 41.4 fL Invalid Interpretation Code 35.1-43.9 [facility] Work Phone: Hematocrit Auto Volume Fraction (Bld) 43.8 % Invalid Interpretation Code 37-47 [facility] Work Phone: Hemoglobin mass conc (Bld) 14.6 g/dL Invalid Interpretation Code 12.0-15.0 [facility] Work Phone: Immature granulocytes #/vol (Bld) 0.200 % Invalid Interpretation Code 0.0-0.9 [facility] Work Phone: Immature granulocytes/100 WBC (Bld) 0.200 % Invalid Interpretation Code 0.0-0.9 [facility] Work Phone: Lymphocytes Auto #/vol (Bld) 1.71 X10 3/UL Invalid Interpretation Code 0.83-4.51 [facility] Work Phone: Lymphocytes/100 WBC Auto (Bld) 33.0 % Invalid Interpretation Code 19-41 [facility] Work Phone: MCH Auto Entitic mass (RBC) 30.4 pg Invalid Interpretation Code 27.0-32.0 [facility] Work Phone: MCHC Auto mass conc (RBC) 33.3 G/GL Invalid Interpretation Code 32-36 [facility] Work Phone: MCV Auto Entitic volume (RBC) 91.3 fL Invalid Interpretation Code 81-99 [facility] Work Phone: Monocytes/100 WBC Auto (Bld) 6.8 % Invalid Interpretation Code 0-10 [facility] Work Phone: Neutrophils Auto #/vol (Bld) 3.0 X10 3/UL Invalid Interpretation Code 2.0-7.7 [facility] Work Phone: Neutrophils/100 WBC Auto (Bld) 57.3 % Invalid Interpretation Code 47-70 [facility] Work Phone: Platelet mean volume Inder-Kaila Entitic volume (Bld) 9.8 fL Invalid Interpretation Code 6.2-12.0 [facility] Work Phone: Platelets Auto #/vol (Bld) 212 10*3/mm3 Invalid Interpretation Code 150-450 [facility] Work Phone: RBC Auto #/vol (Bld) 4.80 10*6/uL Invalid Interpretation Code 4.2-5.4 [facility] Work Phone: RDW SD 41.4 fL Invalid Interpretation Code 35.1-43.9 [facility] Work Phone: WBC Auto #/vol (Bld) 5.2 10*3/uL Invalid Interpretation Code 4.4-11.0 [facility] Work Phone: Lab Report: Comprehensive Al tabolic Profilon 07-27-2017 Albumin mass conc 3.7 g/dL Invalid Interpretation Code 3.4-5.0 [facility] Work Phone: Albumin/Globulin mass ratio 1 {ratio} Invalid Interpretation Code 0.9-2.4 [facility] Work Phone: Alkaline phosphatase (ALP) 81 U/L Invalid Interpretation Code 45-117 [facility] Work Phone: ALP enzyme act/vol (Bld) 81 U/L Invalid Interpretation Code 45-117 [facility] Work Phone: ALT enzyme act/vol 30 U/L Invalid Interpretation Code 12-78 [facility] Work Phone: Anion gap 7 mmol/L Invalid Interpretation Code 5-15 [facility] Work Phone: Anion gap 4 molar conc 7 Invalid Interpretation Code 5-15 [facility] Work Phone: AST enzyme act/vol 17 U/L Invalid Interpretation Code 15-37 [facility] Work Phone: Bilirubin mass conc 0.40 mg/dL Invalid Interpretation Code 0.20-1.00 [facility] Work Phone: Calcium mass conc 8.7 mg/dL Invalid Interpretation Code 8.5-10.1 [facility] Work Phone: Chloride molar conc 106 mmol/L Invalid Interpretation Code 98-107 [facility] Work Phone: CO2 27.0 mmol/L Invalid Interpretation Code 21.0-32.0 [facility] Work Phone: CO2 ppres (BldV) 27.0 mmol/L Invalid Interpretation Code 21.0-32.0 [facility] Work Phone: Creatinine mass conc 0.75 mg/dL Invalid Interpretation Code 0.55-1.02 [facility] Work Phone: eGFR (non-black) 105 mL/min/{1.73_m2} Invalid Interpretation Code >60 [facility] Work Phone: EST GFR - AA 105 mL/min Invalid Interpretation Code >60 [facility] Work Phone: GFR/1.73 sq M predicted among non-blacks MDRD vol rate/area (S/P/Bld) 86 mL/min/{1.73_m2} Invalid Interpretation Code >60 [facility] Work Phone: Globulin Calculated mass conc (S) 3.6 g/dL High 2.3-3.5 [facility] Work Phone: Glucose mass conc 80 mg/dL Invalid Interpretation Code 70-110 [facility] Work Phone: Potassium molar conc 4.0 mmol/L Invalid Interpretation Code 3.5-5.1 [facility] Work Phone: Protein mass conc 7.3 g/dL Invalid Interpretation Code 6.4-8.2 [facility] Work Phone: Sodium molar conc 140 mmol/L Invalid Interpretation Code 136-145 [facility] Work Phone: Urea nitrogen mass conc 9 mg/dL Invalid Interpretation Code 7-18 [facility] Work Phone: Urea nitrogen/Creatinine mass ratio 12.0 RATIO Invalid Interpretation Code 10-20 [facility] Work Phone: Lab Report: Lipid Profileon 07-27-2017 Cholesterol in HDL mass conc 60 mg/dL Invalid Interpretation Code [facility] Work Phone: Cholesterol in LDL mass conc 83 mg/dL Invalid Interpretation Code 0-130 [facility] Work Phone: Cholesterol mass conc 157 mg/dL Invalid Interpretation Code 200 [facility] Work Phone: Lipoprotein.pre-beta mass conc 14 mg/dL Invalid Interpretation Code 5-40 [facility] Work Phone: Triglyceride mass conc 70 mg/dL Invalid Interpretation Code [facility] Work Phone: Lab Report: T4 Free Directon 07-27-2017 T4 free mass conc 1.31 ng/dL Invalid Interpretation Code 0.76-1.46 [facility] Work Phone: Lab Report: Thyroid Stim Hor maggie (TSH)on 07-27-2017 Thyrotropin Qn 0.83 u[iU]/mL Invalid Interpretation Code 0.358-3.74 [facility] Work Phone: Office Visit: New Pt. Visito n 07-27-2017 Documentation of current medications (procedure) Done Invalid Interpretation Code [facility] Work Phone: Fall risk assessment No Invalid Interpretation Code [facility] Work Phone: Tobacco use [facility] Never smoker Invalid Interpretation Code [facility] Work Phone: Office Visit: Annual examon 10-18-2015 General categories Cyto stain Interp (Cervical or vaginal smear or scraping) Normal Invalid Interpretation Code [facility] Vital Signs Date Time Vital Sign Value Performing Clinician Faci lity 03-19-2025 10:15-0400 Body height 160.[address] Yoly Snowden MD Work Phone: [facility] 03-19-2025 10:15-0400 Body mass index (BMI) [Ratio] 28.5 kg/m2 Dr. Yoly Snowden MD Work Phone: [facility] 03-19-2025 10:15-0400 Body weight 73.[address] Yoly Snowden MD Work Phone: [facility] 03-19-2025 10:15-0400 Diastolic blood pressure 78 mm[Hg] Dr. Yoly Snowden MD Work Phone: [facility] 03-19-2025 10:15-0400 Systolic blood pressure 119 mm[Hg] Dr. Yoly Snowden MD Work Phone: [facility] 01-29-2025 11:02-0400 Body height 160.[address] Yoly Snowden MD Work Phone: [facility] 01-29-2025 11:02-0400 Body mass index (BMI) [Ratio] 28.7 kg/m2 Dr. Yoly Snowden MD Work Phone: [facility] 01-29-2025 11:02-0400 Body temperature 97.8 [degF] Dr. Yoly Snowden MD Work Phone: [facility] 01-29-2025 11:02-0400 Body weight 73.[address] Yoly Snowden MD Work Phone: [facility] 01-29-2025 11:02-0400 Diastolic blood pressure 74 mm[Hg] Dr. Yoly Snowden MD Work Phone: [facility] 01-29-2025 11:02-0400 Heart rate 90 /min Dr. Yoly Snowden MD Work Phone: [facility] 01-29-2025 11:02-0400 Respiratory rate 18 /min Dr. Yoly Snowden MD Work Phone: [facility] 01-29-2025 11:02-0400 SaO2% (BldA) [Mass fraction] 99 % Dr. Yoly Snowden MD Work Phone: [facility] 01-29-2025 11:02-0400 Systolic blood pressure 112 mm[Hg] Dr. Yoly Snowden MD Work Phone: [facility] 01-27-2024 13:53-0400 Body height 160.[address] Yoly Snowden Work Phone: [facility] 01-27-2024 13:53-0400 Body mass index (BMI) [Ratio] 27.6 kg/m2 Dr. Yoly Snowden Work Phone: [facility] 01-27-2024 13:53-0400 Body temperature 97.8 [degF] Dr. Yoly Snowden Work Phone: [facility] 01-27-2024 13:53-0400 Body weight 70.[address] Yoly Snowden Work Phone: [facility] 01-27-2024 13:53-0400 Diastolic blood pressure 74 mm[Hg] Dr. Yoly Snowden Work Phone: [facility] 01-27-2024 13:53-0400 Heart rate 72 /min Dr. Yoly Snowden Work Phone: [facility] 01-27-2024 13:53-0400 Respiratory rate 17 /min Dr. Yoly Snowden Work Phone: [facility] 01-27-2024 13:53-0400 SaO2% (BldA) [Mass fraction] 97 % Dr. Yoly Snowden Work Phone: [facility] 01-27-2024 13:53-0400 Systolic blood pressure 118 mm[Hg] Dr. Yoly Snowden Work Phone: [facility] 06-01-2023 08:54-0400 Body height 160.[address] Yoly Snowden Work Phone: [facility] 03-04-2023 09:59-0400 Body height 160.[address] Yoly Snowden Work Phone: [facility] 03-04-2023 09:58-0400 Body mass index (BMI) [Ratio] 28.7 kg/m2 Dr. Yoly Snowden Work Phone: [facility] 03-04-2023 09:58-0400 Body weight 73.[address] Yoly Snowden Work Phone: [facility] 03-04-2023 09:58-0400 Diastolic blood pressure 81 mm[Hg] Dr. Yoly Snowden Work Phone: [facility] 03-04-2023 09:58-0400 Systolic blood pressure 122 mm[Hg] Dr. Yoly Snowden Work Phone: [facility] 01-25-2023 09:23-0400 Body mass index (BMI) [Ratio] 29.2 kg/m2 Dr. Yoly Snowden Work Phone: [facility] 01-25-2023 09:23-0400 Body temperature 98.5 [degF] Dr. Yoly Snowden Work Phone: [facility] 01-25-2023 09:23-0400 Body weight 74.[address] Yoly Snowden Work Phone: [facility] 01-25-2023 09:23-0400 Diastolic blood pressure 86 mm[Hg] Dr. Yoly Snowden Work Phone: [facility] 01-25-2023 09:23-0400 Heart rate 111 /min Dr. Yoly Snowden Work Phone: [facility] 01-25-2023 09:23-0400 Respiratory rate 12 /min Dr. Yoly Snowden Work Phone: [facility] 01-25-2023 09:23-0400 SaO2% (BldA) [Mass fraction] 97 % Dr. Yoly Snowden Work Phone: [facility] 01-25-2023 09:23-0400 Systolic blood pressure 134 mm[Hg] Dr. Yoly Snowden Work Phone: [facility] 03-02-2022 14:25-0400 Diastolic blood pressure 84 mm[Hg] Dr. Yoly Snowden Work Phone: [facility] Work Phone: 03-02-2022 14:25-0400 Systolic blood pressure 132 mm[Hg] Dr. Yoly Snowden Work Phone: [facility] Work Phone: 03-02-2022 14:24-0400 Body height 160.[address] Yoly Snowden Work Phone: [facility] Work Phone: 03-02-2022 14:24-0400 Body mass index (BMI) [Ratio] 27.8 kg/m2 Dr. Yoly Snowden Work Phone: [facility] Work Phone: 03-02-2022 14:24-0400 Body weight 71.[address] Yoly Snowden Work Phone: [facility] Work Phone: 01-26-2022 11:15-0400 Body height 160.[address] Yoly Snowden Work Phone: [facility] Work Phone: 01-26-2022 11:15-0400 Body mass index (BMI) [Ratio] 28.7 kg/m2 Dr. Yoly Snowden Work Phone: [facility] Work Phone: 01-26-2022 11:15-0400 Body temperature 97.2 [degF] Dr. Yoly Snowden Work Phone: [facility] Work Phone: 01-26-2022 11:15-0400 Body weight 73.[address] Yoly Snowden Work Phone: [facility] Work Phone: 01-26-2022 11:15-0400 Diastolic blood pressure 80 mm[Hg] Dr. Yoly Snowden Work Phone: [facility] Work Phone: 01-26-2022 11:15-0400 Heart rate 77 /min Dr. Yoly Snowden Work Phone: [facility] Work Phone: 01-26-2022 11:15-0400 Respiratory rate 14 /min Dr. Yoly Snowden Work Phone: [facility] Work Phone: 01-26-2022 11:15-0400 SaO2% (BldA) [Mass fraction] 99 % Dr. Yoly Snowden Work Phone: [facility] Work Phone: 01-26-2022 11:15-0400 Systolic blood pressure 118 mm[Hg] Dr. Yoly Snowden Work Phone: [facility] Work Phone: 08-05-2017 [id number] BMI (Body Mass Index) 25.57 kg/m2 Sharlene Hill MD [facility] 08-05-2017 14:28-0400 BP Diastolic 75 mm[Hg] Sharlene Hill MD [facility] 08-05-2017 14:28-0400 BP Systolic 115 mm[Hg] Sharlene Hill MD [facility] 08-05-2017 [id number] Height 162.56 cm Sharlene Hill MD [facility] 08-05-2017 [id number] Pulse (Heart Rate) 91 /min Sharlene Hill MD [facility] 08-05-2017 14:28-0400 Weight 67.59 kg Sharlene Hill MD [facility] 08-05-2017 14:0400 Weight 67.58 kg Sharlene Hill MD [facility] 07-27-2017 10:26-0400 BMI (Body Mass Index) 25.74 kg/m2 Yoly Snowden MD [facility] Work Phone: 07-27-2017 [id number] Body Temperature 98.6 [degF] Yoly Snowden MD [facility] Work Phone: 07-27-2017 10:26-0400 BP Diastolic 83 mm[Hg] Yoly Snowden MD [facility] Work Phone: 07-27-2017 10:26-0400 BP Systolic 123 mm[Hg] Yoly Snowden MD [facility] Work Phone: 07-27-2017 10:26-0400 Height 162.56 cm Yoly Snowden MD [facility] Work Phone: 07-27-2017 10:26-0400 Pulse (Heart Rate) 73 /min Yoly Snowden MD [facility] Work Phone: 07-27-2017 10:26-0400 Respiratory Rate 16 /min Yoly Snowden MD [facility] Work Phone: 07-27-2017 10:2 Weight 68.04 kg Yoly Snowden MD [facility] Work Phone: Encounters Encounter Date Encounter Type Care Provider Facility Start: 07-05-2025 End: 07-05-[address] Yoly Snowden MD Work Phone: -[facility] Start: 07-05-2025 End: 07-05-[address] Yoly Snowden MD -[facility] Work Phone: Start: 07-05-2025 End: 07-05-2025 ambulatory Yoly Snowden Facility:[facility] Start: 03-19-2025 Encounter for gynecological examination (general) (routine) with abnormal findings Sharlene Hill [facility] Start: 03-19-2025 End: 03-19-[address] Sharlene Hill MD [facility] Work Phone: Start: 03-19-2025 End: 03-19-[address] Sharlene Hill MD [facility] Start: 03-19-2025 End: 03-19-[address] Yoly Snowden MD Work Phone: [facility] Work Phone: Start: 01-31-2025 Encounter for genera l adult medical examination without abnormal findings cesar Snowden [facility] Start: 01-29-2025 End: 01-29-[address] Yoly Snowden MD [facility] Work Phone: Start: 01-29-2025 End: 01-29-[address] Yoly Snowden MD [facility] Start: 01-29-2025 End: 01-29-[address] Yoly Snowden MD Work Phone: [facility] Work Phone: Start: 01-29-2025 End: 01-29-2025 ambulatory Yoly Snowden Facility:[facility] Start: 09-29-2024 End: 09-29-2024 ambulatory Yoly Snowden Facility:[facility] Start: 01-27-2024 End: 01-27-[address] Yoly Snowden Work Phone: [facility] Work Phone: Start: 01-27-2024 End: 01-27-2024 Encounter for general adult medical examination without abnormal findings Dr. Yoly Snowden Work Phone: [facility] Start: 01-27-2024 End: 01-27-[address] Yoly Snowden Work Phone: [facility] [facility] Work Phone: Start: 06-01-2023 End: 06-01-[address] Yoly Snowden Work Phone: [facility] Work Phone: Start: 06-01-2023 End: 06-01-[address] Yoly Snowden Work Phone: [facility]-Outpatient Bone Densitometry Work Phone: Start: 05-20-2023 End: 05-20-[address] Yoly Snowden Work Phone: [facility] Work Phone: Start: 05-20-2023 End: 05-20-[address] Yoly Snowden Work Phone: [facility]-Outpatient Breast Imaging Work Phone: Start: 03-04-2023 End: 03-04-[address] Yoly Sonwden Work Phone: [facility] Work Phone: Start: 01-25-2023 End: 01-25-2023 Encounter for general adult medical examination without abnormal findings Dr. Yoly Snowden Work Phone: [facility] Start: 01-25-2023 End: 01-25-[address] Yoly Snowden Work Phone: [facility] Work Phone: Start: 03-03-2022 End: 03-03-[address] Yoly Snowden Work Phone: [facility] [place] Start: 03-02-2022 End: 03-02-[address] Yoly Snowden Work Phone: [facility] Start: 01-26-2022 End: 01-26-[address] Yoly Snowden Work Phone: [facility] [place] Start: 01-26-2022 End: 01-26-2022 Encounter for general adult medical examination without abnormal findings Dr. Yoly Snowden Work Phone: [facility] Start: 01-26-2022 End: 01-26-[address] Yoly Snowden Work Phone: [facility] Start: 11-03-2021 Non-patient / Non-visit Dr. Kip Snowden Work Phone: [facility] Start: 03-28-[address] Jayden Snowden Work Phone: [facility] Procedures Date Procedure Procedure Detail Performing Clinician Start: 07-05-2025 Dual energy X-ray absorptiometry Dr. Yoly Snowden MD Work Phone: Start: 01-29-2025 Vitamin D, 25-hydrox y measurement Dr. Yoly Snowden MD Work Phone: Comment on above: Vitamin D StatusDefi ciency: <20 ng/mL (50nmol/L)Insufficiency: 20-30 ng/mL (50-75 nmol/L)Sufficiency: 30-100 ng/mL (75-250 nmol/L)Toxicity: >100 ng/mL (>250 nmol/L) Start: 06-01-2023 Dual energy X-ray absorptiometry Dr. Yoly Snowden Work Phone: Start: 05-20-2023 Screening mammography D belgica Snowden Work Phone: Start: 08-05-2017 End: 08-05-2017 Documentation of current medications Sharlene Hill MD Start: 08-05-[address] for gynecological examination (general) (routine) with abnormal findings Sharlene Hill MD Start: 08-05-2017 Screening mammography Screenin g mammogram for breast cancer Sharlene Hill MD Start: 07-27-2017 End: 07-27-2017 *CBC with Differential Yoly carpenter MD Work Phone: Start: 07-27-2017 End: 07-27-2017 *CMP Complete Metabolic Panel Yoly Snowden MD Work Phone: Start: 07-27-2017 Influenza vaccination Flu vaccine Jayden Snowden MD Start: 07-27-2017 End: 07-27-2017 Lipid 1996 panel - Serum or Plasma Yoly Snowden MD Work Phone: Start: 07-27-2017 End: 07-27-2017 Thyrotropin [Units/volume] in Serum or Plasma Yoly Snowden MD Work Phone: Start: 07-27-2017 End: 07-27-2017 Thyroxine (T4) free [Mass/volume] in Serum or Plasma Yoly Snowden MD Work Phone: Plan of Treatment Date Care Activity Detail Author Start: 01-29-2025 Patient referral [facility] Work Phone: Start: 08-09-2017 End: 08-09-2017 Urology Referral Urology Referral [address], [place], [address] [facility] Start: 08-05-2017 End: 08-05-[address] [facility] Start: 08-05-2017 End: 08-06-2017 Mammogram, screening Mammogram, Screening, both breasts [facility] Start: 07-27-2017 End: 07-27-2017 *CBC with Differential *CBC with Differential [facility] Work Phone: Start: 07-27-2017 End: 07-27-2017 *CMP Complete Metabolic Panel *CMP Complete Metabolic Panel [facility] Work Phone: Start: 07-27-2017 End: 07-27-2017 Lipid panel [AGGREGATE] *Lipid Profile [facility] Work Phone: Start: 07-27-2017 End: 07-27-2017 Thyroid stimulating hormone (TSH) *TSH [facility] Work Phone: Start: 07-27-2017 End: 07-27-2017 Thyroxine (T4) free *T4 free [facility] Work Phone: Start: 07-27-2017 End: 07-27-[address] [facility] DXA Bone [Mass/Area] Bone density [facility] DXA Bone [Mass/Area] Bone density [facility] MG Breast - bilatera l Screening [facility] Patient referral [facility] Work Phone: Immunizations Immunization Date Immunization Notes Care Provider [facility] 10-03-[address] Yoly Snowden MD Work Phone: [facility] 11-27-2019 Flucelvax Quad [phone] (PF) (flu vac qs 2019(4 yr up)CD(PF)) 60 mcg ([address] Yoly Snowden Work Phone: [facility] Work Phone: 07-27-2017 influenza, injectabl e, madin barbara canine kidney, preservative free Yoly Snowden MD [facility] Work Phone: Payers Date Payer Category Payer Self-pay [id number] 2024 Unknown [id number] 2013 Private Health Insurance [id number] Private Health Insurance [facility] [id number] Unknown [facility] [id number] Unknown [id number] Unknown [id number] Unknown [id number] Unknown [id number] Unknown [id number] Social History Date Type Detail Facility Start: 01-26-2022 End: 01-27-2024 Tobacco smoking status NHIS Unknown if ever smoked [facility] Start: 1965 Sex Assigned At Female [facility] Start: 03-14-2024 End: 03-19-2025 Tobacco smoking status NHIS Never smoked tobacco (finding) [facility] Start: 01-31-2025 Sex Female (finding) [facility] Sex Female [facility] Progress note 03-19-2025 Note Date & Type Note Facility 03-19-2025 Progress note [facility] Evaluation note 01-29-2025 Note Date & Type Note Facility 01-29-2025 Evaluation note Diagnosis Onset Date Resolution Abnormal kidney function acute January 29, 2025 11:00am Routine health maintenance acute January 29, 2025 11:00am Hyperlipidemia chronic January 11:00am Hypothyroidism chronic January 11:00am Osteopenia with high risk of fracture chronic January 29 11:00am Toe pain, right chronic January 11:00am [facility] Work Phone: Evaluation note 01-29-2025 Note Date & Type Note Facility 01-29-2025 Evaluation note Diagnosis Onset Date Resolution Abnormal kidney function acute January 29, 2025 11:00am Routine health maintenance acute January 29, 2025 11:00am Hyperlipidemia chronic January 11:00am Hypothyroidism chronic January 11:00am Osteopenia with high risk of fracture chronic January 29 11:00am Toe pain, right chronic January 11:00am Osteopenia with high risk of fracture chronic March 19, 2025 10:04am Encounter for routine gynecological examination noneactive March 19, 2025 10:04am [facility] Work Phone: Evaluation note Note Date & Type Note Facility Evaluation note Diagnosis Onset Date Routine health maintenance a cute Hyperlipidemia chronic Hypothyroidism chronic Osteopenia with high risk of fracture [facility] Work Phone: Evaluation note Note Date & Type Note Facility Evaluation note Diagnosis Onset Date Routine health maintenance a cute Hyperlipidemia chronic Hypothyroidism chronic Neuropathy chronic Osteopenia with high risk of fracture chronic Encounter for routine gyneco logical examination noneactive [facility] Work Phone: Evaluation note Note Date & Type Note Facility Evaluation note Diagnosis Onset Date Encounter for routine gyneco logical examination [facility] Work Phone: Evaluation note Note Date & Type Note Facility Evaluation note Diagnosis Onset Date Routine health maintenance a cute Hyperlipidemia chronic Hypothyroidism chronic Neuropathy chronic Osteopenia with high risk of fracture chronic [facility] Work Phone: Evaluation note Note Date & Type Note Facility Evaluation note No assessment information availa ble [facility] Work Phone: Progress note Note Date & Type Note Facility Progress note Note Date/Time March 19, 2025 10:41am [facility] [address], [address] [place] [address] OFFICE VISIT Date of Service: 03/19/25 MR#: [id number] Acct: [id number] Name: DONNY LAWTON Rep #: [id number] : 1965 Provider: Dr. 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 Is patient in pain?: No Allergies No Known Allergies Allergy (Verified 03/19/25 10:16) Medications ?Medication ?Instructions ?Recorded ?Confirmed ?Type ascorbate calcium (vitamin C) 500 500 mg PO DAILY 01/1603/19/25 History mg tablet calcium carbonate (Calcium 600) 600 mg PO DAILY 03/19/25 History fish oil 400 mg-flaxseed 400 cap PO 01/25/23 03/19/25 History mg-prim,blk social worker assistant,borag oils 200 mg capsule (Fish, Flax and Borage Oil ([place])) magnesium oxide 400 mg PO DAILY 01/25/2312/12 History multivitamin 1 tab PO DAILY 01/25/2312/12 History fluoxetine 40 mg capsule (Prozac) 40 mg PO DAILY #90 c aps 01/27/24 03/19/25 Rx gabapentin 300 mg capsule 300 mg PO BID #180 caps 01/1603/19/25 Rx levothyroxine 100 mcg tablet 100 mcg PO .mon, wed, fri #90 tabs 01/27/24 03/19/25 Rx alendronate 35 mg tablet 35 mg PO QWEEK #14 tabs 02/1503/19/25 Rx atorvastatin 20 mg tablet 20 mg PO DAILY #90 tabs 06/1903/19/25 Rx oxybutynin chloride 5 mg See Rx Instructions .Route 0 07/10/24 03/19/25 Rx tablet,extended release 24 hr .COMPLEX #90 tabs levothyroxine 75 mcg tablet 75 mcg PO SUTUTHSA THYROID #90 tabs 10/19/24 03/19/25 Rx (Synthroid) cholecalciferol (vitamin D3) 50 50 mcg PO .3x/wk 01/2903/19/25 History mcg (2,000 unit) capsule Is last menstrual period known: No Post menopausal: Yes Patient : No : No PFSH Medical History Toe pain, right Abnormal kidney function Elevated liver enzymes Flu vaccine need Family history of osteoporosis Osteopenia with high risk of fracture Acute kidney injury Routine health maintenance Post-menopausal Sinus headache Hypothyroidism GERD (gastroesophageal reflux disease) Neuropathy Hyperlipidemia Surgical History History of total vaginal hysterectomy (TVH) (~01/21/18) Family History Mother Hypertension Heart disease Father CVA (cerebral vascular accident) Social History number of children: 3 current occupational status: retired Smoking Status: Never smoker alcohol intake: never substance use type: does not use caffeine: No what type of physical activity do you participate in: walking, bicycling and weight training frequency: 3-4 times per week seatbelt use: always do you feel safe at home: Yes additional social history: - [place] History 3 Elective abortions Hx Para 3 Spontaneous abortions Hx # Term Pregnancies Ectopic pregnancies Hx # Pregnancies Multiple births # of living children Past Pregnancies Del. Date Name GA/Weeks Outcome Route Bth Weight Infant Gen Labor Lgth Anesthesia Del Locatn Provider FOB Unknown Sue-1995 Unknown [place] Farley-1997 Unknown Ricardo-1999 HPI Encounter for routine gynecological examination Details: DONNY LAWTON is a 59 year old who presents for annual exam. Last PAP: 2016, has had hysterectomy History of abnormal PAP: Last mammogram: 09/29/2024 - normal History of abnormal mammogram: Colon cancer screening: Other preventative health care screenings: PCP [facility]. [facility] 2022. ROS Const Constitutional: Reports as per HPI; Denies fatigue, increased appetite, poor appetite, weight gain or weight loss Cardio Card: Denies chest pain Resp Resp: Denies cough or dyspnea GI GI: Reports as per HPI; Denies abdominal pain, bloating, constipation, nausea or vomiting : Reports as per HPI and other; Denies difficulty voiding, dysuria, hematuria, nipple discharge, pelvic pain, prolapse symptoms, urinary frequency, urinary incontinence, urinary urgency, vaginal discharge, vaginal dryness, vaginal odor or vaginal pruritus Skin Skin/Breast: Denies changing lesions, breast mass, breast pain, breast skin changes or nipple discharge Psych Psych: Denies anxiety or depression Exam Const General: cooperative, healthy appearing, comfortable, no acute distress, well developed and well groomed HENMT Head: normal to inspection and normocephalic Ears: hearing grossly normal bilaterally and external ears normal Nose: external nose normal Face and sinus: normal facial exam Neck Neck: normal visual inspection, full ROM and no lymphadenopathy Thyroid: thyroid normal Chest Chest palpation & inspection: normal inspection of the chest Breast inspection: normal inspection of the breasts and normal inspection of theaxillae Breast palpation: normal palpation of the breasts, normal palpation of the axillae and no axillary lymphadenopathy Resp Effort & Inspection: normal respiratory effort GI Inspection: normal to inspection and non-distended Palpation: soft, no hepatosplenomegaly and no guarding General: bladder normal to palpation External Female Exam: normal external appearance, normal appearance of the urethra and no lesions Urethra: normal appearance of the urethra and normal palpation Speculum Exam - Vagina: normal appearance of the vagina and normal vaginal discharge Bimanual Exam- Vagina & Uterus: bladder normal to palpation Bimanual Exam- Adnexa, other: normal adnexae, no masses and non-tender Skin General: no rashes or lesions noted Neuro General: patient alert, moves all extremities and no focal motor deficits Extrem General: normal to inspection and no pedal edema Psych Appearance: grossly normal Mental Status: mental status grossly normal Affect: normal affect Speech and Movement: speech and movement normal Attitude: cooperative Coding Level of Care Code Off vis,est,prev 40-64yrs Diagnoses Encounter for gynecological examination with abnormal finding Z01.411 Gynecological examination findings: abnormal findings PRESENT Osteopenia with high risk of fracture M85.80 Assessment and Plan Assessment and Plan (1) Encounter for routine gynecological examination: Qualifiers: Gynecological examination findings: abnormal findings PRESENT QualifiedCode(s): Z01.411 - Encounter for gynecological examination (general) (routine) with abnormal findings (2) Osteopenia with high risk of fracture: Status: Chronic Comment: sp manages Plan Cervical cancer screening: hyst Breast cancer screening: mamm other health maintenance examination reviewed and orders placed if needed. Encouraged maintenance of a healthy weight and active lifestyle and handout given. Annual exam handout including recommendations for good health guidelines, Calcium/vitamin D recommendations, and basic screening information given. Problem list up to date, see problem list details for any additional plan information. Follow up in one year for annual health maintenance exam or sooner if needed. 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 Routine health maint enance Hyperlipidemia Hypothyroidism Osteopenia with high risk of fracture Chief Complaint yearly fu 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 Reason for Visit Routine health maint enance Hyperlipidemia Hypothyroidism Neuropathy Osteopenia with high risk of fracture Encounter for routine gynecological examination Chief Complaint 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 SCREENING Reason for Visit Encounter for routin e gynecological examination Chief Complaint 1 Y FU Reason for Visit Routine health maint enance Hyperlipidemia Hypothyroidism Neuropathy Osteopenia with high risk of fracture Chief Complaint Admit Date 1 Y FU January 29, 2025 11: 00am Reason for Visit Admit Date Abnormal kidney function January 29 11:00am Routine health maintenance January 29 025 11:00am Hyperlipidemia January 29, 2025 11: 00am Hypothyroidism January 29, 2025 11: 00am Osteopenia with high risk of fracture Ap ril 2024 11:00am Toe pain, right January 29, 2025 11: 00am Chief Complaint Admit Date 1 Y FU January 29, 2025 11: 00am 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) March 19, 2025 10:04 am Reason for Visit Admit Date Abnormal kidney function January 29 11:00am Routine health maintenance January 29 025 11:00am Hyperlipidemia January 29, 2025 11: 00am Hypothyroidism January 29, 2025 11: 00am Osteopenia with high risk of fracture Ap ril 2024 11:00am Toe pain, right January 29, 2025 11: 00am Osteopenia with high risk of fracture Ju ne 2024 10:04am Encounter for routine gynecological exam ination March 19, 2025 10:04am Chief Complaint Admit Date Post menopausal July 05, 2025 9:02am Family History No Family History Records Found Relationship Condition Age at Onset Recorded Date/T kelsey mother Hypertension Unknown Cardiac disease Unknown father Cerebrovascular accident (CVA) Unknown Advance Directives No Advanced Directives Records Found Advance Directive Response Recorded Date/ Time Living Will No January 14, 2018 10:46am Power of Leaf Binner No January 14 10:46am Advance Directive Response Recorded Date/ Time Living Will No January 14, 2018 10:46am Do you have a Healthcare Power of Leaf Binner? No January 14, 2018 10:46am Summary Purpose Additional Source Comments Goals (unrecognized section and content) Goals may be documented in a n alternate sectionGoals may be documented in an alternate sectionGoals may be documented in an alternate sectionGoals may be documented in an alternate sectionGoals may be documented in an alternate sectionGoals may be documented in an alternate sectionGoals may be documented in an alternate sectionGoals may be documented in an alternate section Care Teams (unrecognized sec tion and content) Team Status: Active Member Role Status Dates Dr. Yoly Snowden MD Family Provider Active Dr. Yoly Snowden MD Primary Care Provider Active Team Status: Inactive Member Role Status Dates Dr. Yoly Snowden MD Primary Care P roazalia, Attending Provider, Referring Provider Active Team Status: Inactive Member Role Status Dates Dr. Yoly Snowden MD Primary Care Provider, Refer ring Provider Active Dr. Sharlene Hill MD Attending Provider Active Team Status: Inactive Member Role Status Dates Dr. Yoly Snowden MD Primary Care P roazalia, Attending Provider, Referring Provider Active Dr. Sharlene Hill MD Other Provider Active Team Status: Inactive Member Role Status Dates Dr. Yoly Snowden MD Primary Care Provider Active Start: January 29, 2025 End: January 29, 2025 Dr. Yoly Snowden MD Attending Provider Active Start: January 29, 2025 End: January 29, 2025 Dr. Yoly Snowden MD Referring Provider Active Start: January 29, 2025 End: January 29, 2025 Team Status: Active Member Role Status Dates Dr. Yoly Snowden MD Primary Care Provider Active Team Status: Inactive Member Role Status Dates Dr. Yoly Snowden MD Primary Care Provider Active Start: March 19, 2025 End: March 19, 2025 Dr. Yoly Snowden MD Referring Provider Active Start: March 19, 2025 End: March 19, 2025 Dr. Sharlene Hill MD Attending Provider Active Start: March 19, 2025 End: March 19, 2025 Team Status: Active Member Role/Relationship Status Dates Dr. Yoly Snowden MD Primary care physician Activ e Team Status: Inactive Member Role/Relationship Status Dates Dr. Yoly Snowden MD Primary care physician Activ e Start: July 05, 2025 End: July 05, 2025 Dr. Yoly Snowden MD Attending physician Active Start: July 05, 2025 End: July 05, 2025 Dr. Yoly Snowden MD Referring Provider Active Start: July 05, 2025 End: July 05, 2025 INFORMATION SOURCE (unrecogn ized section and content) DATE CREATED AUTHOR 07/23/2025 [facility] FOR RECORDS PERTAINING TO PATIENTS WHO ARE OR HAVE BEEN ENROLLED IN A CHEMICAL DEPENDENCY/SUBSTANCEABUSE PROGRAM, SOME INFORMATION MAY BE OMITTED. This clinical summary was aggregated from multiple sources. Caution should be exercised in using it in the provision of clinical care. This summary normalizes information from multiple sources, and as a consequence, information in this document may materially change the coding, format and clinical context of patient data. In addition, data may be omitted in some cases. CLINICAL DECISIONS SHOULD BE BASED ON THE PRIMARY CLINICAL RECORDS. [facility] [employer] [facility]. provides no warranty or guarantee of the accuracy or completeness of information in this document.
== END | disposition home or self-care (01) ==
LOC: OPBI 08:57
PROVIDERS: PCP Internal Medicine; Referring Provider Obstetrics & Gynecology; Visit Provider Obstetrics & Gynecology
DX: Z12.31 Encounter for screening mammogram for malignant neoplasm of breast (principal)
CPT/HCPCS: 77063; 77067